=== PATIENT | female | born 1975 | race Caucasian/White ===

== ENCOUNTER 2023-04-06 23:32 | Observation (INO) | payer OTHER, SELFPAY ==
[2023-04-06 23:45] VITALS: BP 154/118; PULSE 89; RESP 18; TEMP 36.8; O2SAT 98; BMI 37.8
[2023-04-06 23:47] VITALS: O2SAT 94
[2023-04-06 23:48] VITALS: BP 154/118; PULSE 75; RESP 11; O2SAT 98
--- NOTE | 2023-04-06 23:48 | ECG_ITS ---
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
--- NOTE | 2023-04-06 23:49 | ED.CHESTPAI1 ---
HPI - Chest Pain General Chief Complaint: Chest Pain Stated Complaint: WEAKNESS/CHEST PAIN Time Seen by Provider: 04/06/23 23:45 History of Present Illness HPI narrative: chest pain began a few days ago while she was resting. No recent injury/trauma or change in activity to account for the pain. She said that the pain has been relatively constant since it started. No recent cough, fever or chills, GI or symptoms. She has never had anything like this before. PMHx notable only for fibromyalgia. She also takes Paxil. Mother has a pacemaker but no family history of AMI under age 50. Patient's PCP is in [place]. No meds taken for the patient since it began. Related Data Home Medications Medication Instructions Recorded Confirmed cholecalciferol (vitamin D3) 50 04/06/23 mcg (2,000 unit) capsule (Vitamin D3) paroxetine HCl 10 mg tablet mg PO 04/06/23 Allergies Allergy/AdvReac Type Severity Reaction Status Date / Time keflex Allergy Mild Uncoded 04/06/23 23:50 Exam Narrative Exam Narrative: Nurses notes and vital signs reviewed and patient is not hypoxic. afebrile General: Well-appearing and in no apparent distress. Skin: Warm, dry, no pallor noted. No rash. Head: Normocephalic, atraumatic. Eye: Pupils are equal, round and EOMI. No scleral icterus. Ears, Nose, Mouth, and Throat: Oral mucosa is moist Cardiovascular: Regular Rate and Rhythm without murmur, gallop or rub. Respiratory: No accessory muscle use or respiratory distress. Lungs are clear to auscultation, no wheezing, rales or rhonchi Chest Wall: no tenderness on palpation at the sternum where the pain is located. No crepitus or subcutaneous emphysema. Back: No midline thoracic or lumbar vertebral tenderness. No CVA tenderness Musculoskeletal: normal ROM, no calf or popliteal tenderness, no lower extremity edema/swelling GI: Abdomen is soft, non-distended. Normal bowel sounds. No tenderness to palpation. No rebound, guarding, or rigidity noted. Neurological: A&O x4. No cranial nerve dysfunction observed. No truncal ataxia. Moves all extremities. Sensation intact. Psychiatric: Cooperative and interactive. Normal mood and affect. Constitutional Vital Signs - 24 hr 04/06/23 23:45 Temperature 98.2 F Pulse Rate [Monitor] 89 Respiratory Rate 18 Blood Pressure [Right Arm] 154/118 H Pulse Oximetry 98 Oxygen Delivery Method Room Air Course Vital Signs Vital signs: Vital Signs Temperature 98.2 F 04/06/23 23:45 Pulse Rate 89 04/06/23 23:45 Respiratory Rate 18 04/06/23 23:45 Blood Pressure 154/118 H 04/06/23 23:45 Pulse Oximetry 98 04/06/23 23:45 Oxygen Delivery Method Room Air 04/06/23 23:45 Temperature 98.2 F 04/06/23 23:45 Pulse Rate 89 04/06/23 23:45 Respiratory Rate 18 04/06/23 23:45 Blood Pressure 154/118 H 04/06/23 23:45 Pulse Oximetry 98 04/06/23 23:45 Oxygen Delivery Method Room Air 04/06/23 23:45 MDM - Chest Pain MDM Narrative Medical decision making narrative: Patient was placed on surveillance monitor and EKG obtained. Blood drawn and sent for evaluation. CXR obtained and was negative. Initial workup was negative but the patient continues to have pain in the mid chest. She was rodered to receive Morphine, along with IV Zforan in caseee she develops nausea from the morphine. She is PERC negative. HEART score is 2 but she is actively having pain, is obese and I do not know if she has received any out-patient screening for DM or cholesterol. I spoke with Dr Tong Huddleston about admitting the patient to our SDU for cycling of cardiac enzymes and further monitoring and he agreed to admit on behalf of Dr Pineda. Patient agreeable to admission. Lab Data Attestation: I reviewed the patient's lab results. Labs: Lab Results 04/06/23 Range/Units 23:55 WBC 8.5 (4.0-11.0) 10^3/uL RBC 4.62 (4.20-5.40) 10^6/uL Hgb 13.9 (12.0-16.0) g/dL Hct 39.5 (36.0-48.0) % MCV 85.5 (81.0-99.0) fL MCH 30.1 (26.7-34.0) pg MCHC 35.2 (29.9-35.2) g/dL RDW 12.0 (11.0-15.0) % Plt Count 328 (150-450) 10^3/uL MPV 10.2 (9.5-13.5) fL Neut % (Auto) 62.4 (43.0-75.0) % Lymph % (Auto) 26.4 (20.5-60.0) % [place] % (Auto) 8.5 (1.7-12.0) % Eos % (Auto) 1.6 (0.9-7.0) % Baso % (Auto) 0.9 (0.2-2.0) % Neut # (Auto) 5.3 (1.4-6.5) 10^3/uL Lymph # (Auto) 2.2 (1.2-3.8) 10^3/uL [place] # (Auto) 0.7 (0.3-0.8) 10^3/uL Eos # (Auto) 0.1 (0.0-0.7) 10^3/uL Baso # (Auto) 0.1 (0.0-0.1) 10^3/uL Abs Immat Gran (auto) 0.02 (0.00-0.03) 10^3/uL Imm/Tot Granulo (auto) 0.2 (0.0-0.5) % Sodium 138 (136-145) mmol/L Potassium 3.8 (3.5-5.1) mmol/L Chloride 106 (98-107) mmol/L Carbon Dioxide 23.7 (21.0-32.0) mmol/L Anion Gap 12.1 BUN 17.0 (7.0-18.0) mg/dL Creatinine 1.08 H (0.55-1.02) mg/dL Est GFR ( Amer) >60 (>=60) Est GFR (Non-Af Amer) 54 L (>=60) BUN/Creatinine Ratio 15.7 Glucose 97 (74-106) mg/dL Calcium 9.4 (8.5-10.1) mg/dL Troponin I High Sens 4.0 (4.0-51.3) pg/mL Imaging Data Chest x-ray: Attestation: I have reviewed the pertinent imaging results. Radiologist's impression: Patient Name: APARNA RODRIGUES MRN: [facility]:[id number] date: 1975 Sex: F Assigned Patient Location: ER Current Patient Location: ER Accession/Order Number: [id number] Exam Date: 04/06/2023 23:59 Report Date: 04/07/2023 00:30 At the request of: LIS LAWRENCE Procedure: XR chest 1V EXAMINATION: XR chest 1V HISTORY: chest pain COMPARISON: No relevant comparison available. FINDINGS: LUNGS: No significant pulmonary parenchymal abnormalities. VASCULATURE: No increased pulmonary vasculature. PLEURA: No pneumothorax, effusion, or pleural thickening. CARDIAC: No cardiomegaly or cardiac silhouette abnormality. MEDIASTINUM: No visible mass or adenopathy. BONES: No fracture or visible bone lesion. OTHER: Negative. IMPRESSION: 1. No appreciable acute cardiopulmonary process. Examination is limited by patient body habitus and AP portable technique. Electronically authenticated by: BENNETT POWERS Date: 04/07/2023 00:30 ECG Data Attestation: ?I have reviewed the pertinent ECG results. Interpretation: EKG interpretation: Emergency Department physician interpretation. Normal sinus rhythm at 77bpm. Normal axis, normal intervals and no ST segment elevation or depression. Heart Score History: Moderatly Suspicious ECG: Normal Age: >45-<65 years Risk Factors: No Risk Factors Troponin: <Normal Limit Total Heart Score Recommendations & Risks:: 2 Discharge Plan Discharge Chief Complaint: Chest Pain Clinical Impression: Chest pain Patient Disposition: Admitted as Observation Time of Disposition Decision: 01:16
[2023-04-07] VITALS (42 sets, daily range): BP systolic 103–193; BP diastolic 0–135; PULSE 56–88; RESP 13–24; TEMP 35.5–36.6; O2SAT 92–100; BMI 42.0
[2023-04-07] MEDS: ASPIRIN 81 MG TAB.CHEW 162 MG PO (00:10)
[2023-04-07] MEDS: NITROGLYCERIN 0.4 MG TAB.SUBL PO (00:15)
[2023-04-07 00:40] LABS: Basophils Absolute Auto 0.1 10^3/uL (0.0-0.1); Basophils Percent Auto 0.9 % (0.2-2.0); Eosinophils Absolute Auto 0.1 10^3/uL (0.0-0.7); Eosinophils Percent Auto 1.6 % (0.9-7.0); Hematocrit 39.5 % (36.0-48.0); Hemoglobin 13.9 g/dL (12.0-16.0); Immature Granulocytes Abs Auto 0.02 10^3/uL (0.00-0.03); Immature Granulocytes Pct Auto 0.2 % (0.0-0.5); Lymphocytes Absolute Auto 2.2 10^3/uL (1.2-3.8); Lymphocytes Percent Auto 26.4 % (20.5-60.0); Mean Corpuscular HGB Conc 35.2 g/dL (29.9-35.2); Mean Corpuscular Hemoglobin 30.1 pg (26.7-34.0); Mean Corpuscular Volume 85.5 fL (81.0-99.0); Mean Platelet Volume 10.2 fL (9.5-13.5); Monocytes Absolute Auto 0.7 10^3/uL (0.3-0.8); Monocytes Percent Auto 8.5 % (1.7-12.0); Neutrophils Absolute Auto 5.3 10^3/uL (1.4-6.5); Neutrophils Percent Auto 62.4 % (43.0-75.0); Platelet Count 328 10^3/uL (150-450); Red Blood Count 4.62 10^6/uL (4.20-5.40); White Blood Count 8.5 10^3/uL (4.0-11.0)
[2023-04-07 01:05] LABS: Anion Gap 12.1; BUN Creatinine Ratio 15.7; Calcium 9.4 mg/dL (8.5-10.1); Carbon Dioxide 23.7 mmol/L (21.0-32.0); Chloride 106 mmol/L (98-107); Estimated GFR (African America >60 (>=60); Estimated GFR (Non-African Ame 54 (>=60); Glucose 97 mg/dL (74-106); Potassium 3.8 mmol/L (3.5-5.1); Sodium 138 mmol/L (136-145)
[2023-04-07] MEDS: MORPHINE SULFATE 4 MG/ML VIAL IV (01:30)
[2023-04-07] MEDS: ONDANSETRON PF 4 MG/2 ML VIAL IV (01:30)
--- NOTE | 2023-04-07 02:18 | ECG_ITS ---
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
--- NOTE | 2023-04-07 02:20 | PC.NURSE ---
patient blood pressure reading high with increased chest pain. took manual bp x2, asked another nurse to check a manual, she also had a difficult time . doppler bp was taken at 188/D. Physician made aware, EKG repeated.
[2023-04-07] MEDS: ENALAPRILAT DIHYDRATE 1.25 MG/ML VIAL IV (02:48)
[2023-04-07] MEDS: LABETALOL HCL 20 MG/4 ML SYRINGE IVP (02:48)
[2023-04-07] MEDS: LORAZEPAM 2 MG/ML 1 ML VIAL 0.5 MG IV (02:52)
--- NOTE | 2023-04-07 04:21 | P.PN_ITS ---
Progress Note: Subjective Subjective Interval history: The patient is a 47yo woman with PMHx of depression, anxiety, fibromyalgia, who presented to the ED with chest pain. She states that it started three days ago and it is substernal, sharp and intermittent. There does not seem to be any trigger for it, since it can occur exertion or rest. She denies any pleuritic pain, cough, SOB, N/V/D/C, abdominal pain, diaphoresis, headaches, lightheadedness, fevers or chills. She states that the pain lasts for 10-30 m inutes at a time. In the ED she was given morphine, nitroglycerin, and aspirin with little improvement. She had some hypertension at one point along with chest pain and she was given some labetalol and lorazepam and she notes that her chest pain was best treated with those medications. She has never had a stress test before, she has no medical history of cardiovascular disease, no family history of cardiovascular disease, and she does not use recreational drugs, smoke or drink. Exam Constitutional Vital Signs - 24 hr 04/06/23 23:45 04/07/23 02:23 04/06/23 23:47 Temperature 98.2 F Pulse Rate Pulse Rate [Monitor] 89 Respiratory Rate 18 Blood Pressure Blood Pressure [Right Arm] 154/118 H 188/0 H Pulse Oximetry 98 94 L Oxygen Delivery Method Room Air 04/06/23 23:48 04/07/23 00:13 04/07/23 00:15 Temperature Pulse Rate 75 82 85 Pulse Rate [Monitor] Respiratory Rate 11 L 16 16 Blood Pressure 154/118 H 172/135 H 175/126 H Blood Pressure [Right Arm] Pulse Oximetry 98 97 96 Oxygen Delivery Method 04/07/23 00:30 04/07/23 00:45 04/07/23 01:00 Temperature Pulse Rate 76 72 87 Pulse Rate [Monitor] Respiratory Rate Blood Pressure 162/96 H 153/86 H 172/101 H Blood Pressure [Right Arm] Pulse Oximetry 99 98 Oxygen Delivery Method 04/07/23 01:05 04/07/23 01:15 04/07/23 01:30 Temperature Pulse Rate 65 69 82 Pulse Rate [Monitor] Respiratory Rate Blood Pressure 166/102 H 164/102 H 171/98 H Blood Pressure [Right Arm] Pulse Oximetry 99 98 98 Oxygen Delivery Method 04/07/23 01:45 04/07/23 02:00 04/07/23 02:01 Temperature Pulse Rate 73 72 71 Pulse Rate [Monitor] Respiratory Rate Blood Pressure 173/111 H 190/116 H 186/113 H Blood Pressure [Right Arm] Pulse Oximetry 98 99 99 Oxygen Delivery Method 04/07/23 02:11 04/07/23 02:48 04/07/23 02:11 Temperature Pulse Rate 69 74 Pulse Rate [Monitor] Respiratory Rate 23 Blood Pressure 193/120 H 157/106 H 193/120 H Blood Pressure [Right Arm] Pulse Oximetry 98 97 Oxygen Delivery Method 04/07/23 02:30 04/07/23 02:54 04/07/23 03:00 Temperature Pulse Rate 70 70 67 Pulse Rate [Monitor] Respiratory Rate 21 21 21 Blood Pressure 157/106 H 149/98 H 143/94 H Blood Pressure [Right Arm] Pulse Oximetry 98 92 L 93 L Oxygen Delivery Method 04/07/23 03:15 04/07/23 04:08 04/07/23 04:09 Temperature Pulse Rate 65 74 Pulse Rate [Monitor] Respiratory Rate 17 Blood Pressure 126/85 H Blood Pressure [Right Arm] Pulse Oximetry 92 L Oxygen Delivery Method Room Air 04/07/23 03:15 04/07/23 03:27 04/07/23 03:30 Temperature 97.2 F L Pulse Rate 68 66 68 Pulse Rate [Monitor] Respiratory Rate 20 17 Blood Pressure 126/85 H Blood Pressure [Right Arm] Pulse Oximetry 98 Oxygen Delivery Method 04/07/23 03:33 04/07/23 03:33 04/07/23 03:33 Temperature Pulse Rate 67 72 72 Pulse Rate [Monitor] Respiratory Rate 16 19 24 Blood Pressure 139/91 H 139/91 H Blood Pressure [Right Arm] Pulse Oximetry 100 93 L 100 Oxygen Delivery Method Documenting provider has reviewed patient's vital signs: yes Common normals: no apparent distress and well nourished General appearance: cooperative, comfortable and well kempt Nutritional appearance: overweight HENMT Common normals: normocephalic Respiratory Common normals: normal respiratory effort, no retractions, no use of accessory muscles and clear to auscultation bilaterally Effort & inspection: able to speak in complete sentences Cardio Common normals: no JVD, regular rate, regular rhythm, S1 normal heart sound, S2 normal heart sound, no gallops, no clicks, no murmurs, no rub and peripheral pulses 2+ throughout GI Common normals: Normal to inspection, nondistended, normoactive bowel sounds present, soft to palpation and non-tender Extremity Common normals: normal to inspection and full ROM Neuro Common normals: oriented x3, CN's II-XII intact bilaterally, moves all extremities, no focal motor deficits and no sensory deficits noted Psych Common normals: mental status grossly normal, thought process normal, cooperative, affect normal, speech normal and activity/motor behavior normal Progress Note: Objective Labs Labs: Short CBC 04/06/23 Range/Units 23:55 WBC 8.5 (4.0-11.0) 10^3/uL Hgb 13.9 (12.0-16.0) g/dL Hct 39.5 (36.0-48.0) % Plt Count 328 (150-450) 10^3/uL BMP 04/06/23 23:55 Sodium 138 Potassium 3.8 Chloride 106 Carbon Dioxide 23.7 BUN 17.0 Creatinine 1.08 H Glucose 97 Calcium 9.4 Progress Note: A&P Assessment and Plan (1) Chest pain: Plan 1. Chest Pain The patient presented with chest pain. Her HEART score is 2, so she is low risk. Her chest pain is most likely related to either musculoskeltal pain or perhaps related to anxiety since it was best treated by lorazepam. - observation status - c/w telemetry - trend troponin x3 - check lipid panel - stress echo ordered - c/w aspirin - morphine and nitro for chest pain 2. Depression Fibromyalgia - c/w paroxetine Telemedicine Attestation Telemedicine Attestation I conducted this encounter from [place] via secure live, [id number] video conference with the patient, located at [facility] with Socorro Mcmahon. Prior to the interview, the risks and benefits of telemedicine were discussed with the patient and verbal consent was obtained.
[2023-04-07 04:50] LABS: Basophils Absolute Auto 0.1 10^3/uL (0.0-0.1); Eosinophils Absolute Auto 0.2 10^3/uL (0.0-0.7); Eosinophils Percent Auto 2.6 % (0.9-7.0); Hematocrit 36.1 % (36.0-48.0); Hemoglobin 12.6 g/dL (12.0-16.0); Immature Granulocytes Abs Auto 0.01 10^3/uL (0.00-0.03); Immature Granulocytes Pct Auto 0.1 % (0.0-0.5); Lymphocytes Absolute Auto 2.3 10^3/uL (1.2-3.8); Lymphocytes Percent Auto 33.1 % (20.5-60.0); Mean Corpuscular HGB Conc 34.9 g/dL (29.9-35.2); Mean Corpuscular Hemoglobin 29.9 pg (26.7-34.0); Mean Corpuscular Volume 85.5 fL (81.0-99.0); Mean Platelet Volume 9.9 fL (9.5-13.5); Monocytes Absolute Auto 0.7 10^3/uL (0.3-0.8); Monocytes Percent Auto 9.9 % (1.7-12.0); Neutrophils Absolute Auto 3.7 10^3/uL (1.4-6.5); Neutrophils Percent Auto 53.3 % (43.0-75.0); Platelet Count 280 10^3/uL (150-450); Red Blood Count 4.22 10^6/uL (4.20-5.40)
[2023-04-07 05:14] LABS: Anion Gap 11.8; BUN Creatinine Ratio 15.5; Calcium 8.8 mg/dL (8.5-10.1); Carbon Dioxide 24.5 mmol/L (21.0-32.0); Chloride 107 mmol/L (98-107); Estimated GFR (African America >60 (>=60); Estimated GFR (Non-African Ame 57 (>=60); Glucose 127 mg/dL (74-106); Magnesium 1.9 mg/dL (1.8-2.4); Potassium 3.3 mmol/L (3.5-5.1); Sodium 140 mmol/L (136-145); Troponin I High Sensitivity 4.3 pg/mL (4.0-51.3)
[2023-04-07 05:31] LABS: Chol HDL Ratio 2.6; Cholesterol 143 mg/dL (<=200); HDL Cholesterol 56 mg/dL (40-60); LDL Cholesterol Calculated 70.4 mg/dL; Triglycerides 83 mg/dL (<=150); VLDL CHOLESTEROL 16.6 mg/dL
[2023-04-07] MEDS: ENOXAPARIN SODIUM 40 MG/0.4 ML SYRINGE SUBQ (06:17)
[2023-04-07 08:29] LABS: Troponin I High Sensitivity 4.7 pg/mL (4.0-51.3)
[2023-04-07] MEDS: ACETAMINOPHEN 325 MG TABLET 650 MG PO (09:11)
[2023-04-07] MEDS: PAROXETINE HCL 20 MG TABLET 10 MG PO (09:12)
[2023-04-07] MEDS: CHOLECALCIFEROL (VITAMIN D3) 25 MCG/1,000 UNITS TABLET 100 MCG PO (09:13)
[2023-04-07] MEDS: POTASSIUM CHLORIDE 10 MEQ ER TABLET 40 MEQ PO (10:59)
--- NOTE | 2023-04-07 11:06 | CT_ITS ---
[address] [address] Patient Name: APARNA RODRIGUES MRN: [id number] date: 1975 Sex: F Assigned Patient Location: ICU Current Patient Location: ICU Accession/Order Number: [id number] Exam Date: 04/07/2023 11:32 Report Date: 04/07/2023 12:06 At the request of: SHAIKH NED Procedure: CT angio chest EXAM: CT angio chest; [id number] REASON FOR EXAM: SOB TECHNIQUE: Helical CT images of the chest were obtained after the administration of IV contrast. Multiplanar reformats and maximum intensity projection images were created at the scanner. Dose reduction technique used: Automated exposure control and/or adjustment of the mA and/or kV according to patient size and/or use of iterative reconstruction technique. COMPARISON: None. FINDINGS: Technical quality: Good. Chest: Support devices: None. Visualized Thyroid: No nodules. Chest wall: Within normal limits. Latonya/mediastinum/esophagus: No mass. Thoracic lymph nodes: No enlarged supraclavicular, mediastinal, hilar or axillary lymph nodes. Heart and vasculature: -No pulmonary artery filling defect to suggest pulmonary embolism. -Right ventricular to left ventricular (RV/LV) ratio (normal is less than 1): -No pericardial effusion or aortic aneurysm. Visualized portions of the upper abdomen: Within normal limits. Musculoskeletal: No acute abnormality or suspicious osseous lesion. Lungs/airways: -No significant nodule or infiltrate. -Small benign calcified granuloma in the right upper lobe. -The central airways are patent. Pleura: No pleural effusion or pneumothorax. IMPRESSION: Negative exam. No pulmonary embolism or any acute cardiopulmonary abnormality demonstrated. Electronically authenticated by: NIELS CONWAY Date: 04/07/2023 12:06
--- NOTE | 2023-04-07 11:07 | CA_ITS ---
Patient: APARNA RODRIGUES Exam Date: 04/08/2023 : 1975 Gender:F Ordering : SHAIKH Ashkan MARINO . Admission #: [id number] Family : Order #: [id number] CLICK HERE TO VIEW EXAM ECHOCARDIOGRAM REPORT PROCEDURE: CA ECHO DOPPLER COMPLETE INDICATIONS: Chest pain COMPARISON: None. DESCRIPTION: COMPLETE ECHOCARDIOGRAM Real-time transthoracic echocardiography with 2D, M-mode, spectral and color flow Doppler performed. QUALITY: Technical quality was good. LEFT VENTRICLE: Normal chamber size. Thickened septal wall. Normal systolic function. LV EF: Normal left ventricular ejection fraction, (>55%). DIASTOLIC: Normal diastolic function. ATRIAL SEPTUM: LEFT ATRIUM: Normal chamber size. RIGHT ATRIUM: Normal chamber size. RIGHT VENTRICLE: Normal chamber size. Normal right ventricular systolic function. TRICUSPID VALVE: Normal mobility and thickness. No stenosis with Doppler studies reveal mildly (35-45) elevated right sided pressures. RVSP 43 mmHg MITRAL VALVE: Normal mobility and thickness. No evidence of mitral valve stenosis. There is no mitral annular calcification. Trivial mitral regurgitation. AORTIC VALVE: Normal trileaflet appearance. No visible sclerosis. Normal leaflet mobility. No evidence of aortic valve stenosis. No aortic regurgitation. AORTIC ROOT: Normal diameter and appearance. PULMONIC VALVE: Normal thickness and mobility. No stenosis. Trivial regurgitation. PERICARDIUM: No evidence of pericardial effusion. IVC: Collapses with inspirations. PLEURA: CONCLUSION: 1. Normal ventricular systolic function. LVEF is 55 to 60%. 2. Normal diastolic function. 3. No significant valvular dysfunction. 4. Mildly elevated right-sided pressures. 5. No pericardial effusion. Adult Echocardiography Procedure Report Left Ventricle LVEDD (3.7 - 5.6 cm): 4.30 cm LVESD (2.2 - 4.0 cm): 2.93 cm LVIVS thickness (0.6 - 1.2 cm): 1.11 cm LVPW thickness (0.5 - 1.0 cm): 0.83 cm e': 0.10 m/s E - e': 8.98 LVOT Max Gradient: 2.71 mm[Hg] LVOT Area (cm2): 0.82 m/s Peak Velocity (LVOT): 0.82 m/s LVOT Diameter 2.29 cm Left Atrium LA Volume Index (2D A2C): 21.82 ml/m2 Left Atrium Systolic Dimension: 3.26 cm Mitral Valve MV E to A Ratio: 1.16 Mitral Valve A-Wave Peak Velocity: 0.76 m/s Mitral Valve E-Wave Peak Velocity: 0.89 m/s Right Ventricle Aorta AO Root Diam: 3.20 cm Ascending Ao Diam: 2.93 cm Aortic Valve AoV Area (Peak Дмитрий): 3.11 cm2, 3.11 cm2 Peak Velocity(Antegrade Flow): 1.09 m/s Peak Gradient(Antegrade Flow): 4.75 mm[Hg] Mean Velocity(Antegrade Flow): 0.73 m/s Mean Gradient(Antegrade Flow): 2.45 mm[Hg] Velocity Time Integral: 23.32 cm Tricuspid Valve Peak Velocity (Regurgitant Flow): 3.18 m/s Pulmonic Valve Mean Gradient: 1.96 mm[Hg] Mean Velocity: 0.65 m/s Peak Velocity: 0.94 m/s, 0.97 m/s Peak Gradient: 3.73 mm[Hg], 3.50 mm[Hg] Right Atrium Right Atrium Systolic Pressure: 30.51 ml, 30.51 ml Dictated by: Iraj Gaming M.D. on 04/08/2023 at 18:01 Approved by: Iraj Gaming M.D. on 04/08/2023 at 18:03
[2023-04-07] MEDS: MORPHINE SULFATE 2 MG/ML SYRINGE IV ×3 (11:14→20:30)
--- NOTE | 2023-04-07 12:11 | P.HP_ITS ---
H&P: HPI History of Present Illness Chief complaint: Chest Pain Narrative: 47 y o female with no sig PMhx except for depresion and fibromyalgia presented last evening with midsternal sharp chest pain. Patient was at work when her pain started. She reports she has been experiencing mid sternal chest pain, sharp in nature, lasts about 30 mins, no aggravating or relieving factors, and no relationship to food or exertion. No associated symptoms too and denies nausea, palpitations or SOB. Pain is not pleuritic and does not change with deep inspiration. Her CP has been going on for about a month or so, but getting more frequent and severe progressively. She denies prior hx of CAD/CHF and never been w/u for it. She was noted to have very high BP on presentation and required IV treatment for it but since then, her BP has been at goal and she herself told me that she has never been diagnosed with HTN. Patient reports she walks with her grand kids over the weekends and also swims and has not experienced any symptoms concerning for CAD/CHF when she does that. 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 Denies smoking and sig FHx of CAD in family. No recent travel or prolonged immobilization. She is still experiencing chest discomfort in mid sternal region. Pain has eased off since admission but it is persistent and still present. Review of Systems ROS Status of ROS 10 or more systems reviewed and unremarkable except as noted in history and below [facility] Medical History (Updated 04/07/23 @ 12:31 by Shaikh Edwin MD) Surgical History (Updated 04/07/23 @ 12:18 by Shaikh Edwin MD) Family History (Updated 04/07/23 @ 12:17 by Shaikh Edwin MD) Mother Family history of hypertension Atrial fibrillation Social History (Updated 04/07/23 @ 12:17 by Shaikh Edwin MD) Within the past year, how often did you have a drink containing alcohol: never Score interpretation: A score less than 3 is consistent with normal alcohol consumption. Smoking status: Never smoker Non-prescribed substance use: denies use Meds Home Medications and Allergies Home Medications Medication Instructions Recorded Confirmed Type cholecalciferol (vitamin D3) 50 4,000 unit PO DAILY 04/06/23 04/07/23 History mcg (2,000 unit) capsule (Vitamin D3) paroxetine HCl 10 mg tablet 10 mg PO DAILY 04/06/23 04/07/23 History Allergies Allergy/AdvReac Type Severity Reaction Status Date / Time keflex Allergy Mild Uncoded 04/06/23 23:50 Exam Constitutional Vital Signs - 24 hr 04/06/23 23:45 04/07/23 02:23 04/06/23 23:47 Temperature 98.2 F Pulse Rate Pulse Rate [Monitor] 89 Respiratory Rate 18 Blood Pressure Blood Pressure [Right Arm] 154/118 H 188/0 H Pulse Oximetry 98 94 L Oxygen Delivery Method Room Air 04/06/23 23:48 04/07/23 00:13 04/07/23 00:15 Temperature Pulse Rate 75 82 85 Pulse Rate [Monitor] Respiratory Rate 11 L 16 16 Blood Pressure 154/118 H 172/135 H 175/126 H Blood Pressure [Right Arm] Pulse Oximetry 98 97 96 Oxygen Delivery Method 04/07/23 00:30 04/07/23 00:45 04/07/23 01:00 Temperature Pulse Rate 76 72 87 Pulse Rate [Monitor] Respiratory Rate Blood Pressure 162/96 H 153/86 H 172/101 H Blood Pressure [Right Arm] Pulse Oximetry 99 98 Oxygen Delivery Method 04/07/23 01:05 04/07/23 01:15 04/07/23 01:30 Temperature Pulse Rate 65 69 82 Pulse Rate [Monitor] Respiratory Rate Blood Pressure 166/102 H 164/102 H 171/98 H Blood Pressure [Right Arm] Pulse Oximetry 99 98 98 Oxygen Delivery Method 04/07/23 01:45 04/07/23 02:00 04/07/23 02:01 Temperature Pulse Rate 73 72 71 Pulse Rate [Monitor] Respiratory Rate Blood Pressure 173/111 H 190/116 H 186/113 H Blood Pressure [Right Arm] Pulse Oximetry 98 99 99 Oxygen Delivery Method 04/07/23 02:11 04/07/23 02:48 04/07/23 02:11 Temperature Pulse Rate 69 74 Pulse Rate [Monitor] Respiratory Rate 23 Blood Pressure 193/120 H 157/106 H 193/120 H Blood Pressure [Right Arm] Pulse Oximetry 98 97 Oxygen Delivery Method 04/07/23 02:30 04/07/23 02:54 04/07/23 03:00 Temperature Pulse Rate 70 70 67 Pulse Rate [Monitor] Respiratory Rate 21 21 21 Blood Pressure 157/106 H 149/98 H 143/94 H Blood Pressure [Right Arm] Pulse Oximetry 98 92 L 93 L Oxygen Delivery Method 04/07/23 03:15 04/07/23 04:08 04/07/23 04:09 Temperature Pulse Rate 65 74 Pulse Rate [Monitor] Respiratory Rate 17 Blood Pressure 126/85 H Blood Pressure [Right Arm] Pulse Oximetry 92 L Oxygen Delivery Method Room Air 04/07/23 03:15 04/07/23 03:27 04/07/23 03:30 Temperature 97.2 F L Pulse Rate 68 66 68 Pulse Rate [Monitor] Respiratory Rate 20 17 Blood Pressure 126/85 H Blood Pressure [Right Arm] Pulse Oximetry 98 Oxygen Delivery Method 04/07/23 03:33 04/07/23 03:33 04/07/23 03:33 Temperature Pulse Rate 67 72 72 Pulse Rate [Monitor] Respiratory Rate 16 19 24 Blood Pressure 139/91 H 139/91 H Blood Pressure [Right Arm] Pulse Oximetry 100 93 L 100 Oxygen Delivery Method 04/07/23 05:13 04/07/23 07:21 04/07/23 07:23 Temperature 97.2 F L Pulse Rate 77 66 65 Pulse Rate [Monitor] 65 Respiratory Rate 24 Blood Pressure Blood Pressure [Right Arm] Pulse Oximetry 100 Oxygen Delivery Method Room Air 04/07/23 09:29 04/07/23 08:30 04/07/23 10:06 Temperature Pulse Rate 62 63 Pulse Rate [Monitor] 63 Respiratory Rate 20 Blood Pressure Blood Pressure [Right Arm] Pulse Oximetry Oxygen Delivery Method 04/07/23 03:33 04/07/23 08:40 04/07/23 08:40 Temperature 97.9 F Pulse Rate 86 71 61 Pulse Rate [Monitor] Respiratory Rate 16 17 17 Blood Pressure 139/91 H 103/58 L 103/58 L Blood Pressure [Right Arm] Pulse Oximetry 99 Oxygen Delivery Method 04/07/23 11:59 04/07/23 12:02 04/07/23 08:40 Temperature Pulse Rate 61 70 Pulse Rate [Monitor] 63 Respiratory Rate 20 13 Blood Pressure 103/58 L Blood Pressure [Right Arm] Pulse Oximetry Oxygen Delivery Method 04/07/23 11:06 Temperature 97.9 F Pulse Rate 57 L Pulse Rate [Monitor] Respiratory Rate 18 Blood Pressure 161/94 H Blood Pressure [Right Arm] Pulse Oximetry 99 Oxygen Delivery Method Documenting provider has reviewed patient's vital signs: yes Common normals: no apparent distress General appearance: cooperative and comfortable Nutritional appearance: obese HENMT Common normals: normocephalic and head/scalp atraumatic Eye Common normals: conjunctivae normal and no scleral icterus Chest Common normals: inspection of chest normal and palpation of chest normal Respiratory Common normals: normal respiratory effort, no retractions, no use of accessory muscles and clear to auscultation bilaterally Cardio Common normals: regular rate, regular rhythm, S1 normal heart sound, S2 normal heart sound and no murmurs GI Common normals: Normal to inspection, nondistended, normoactive bowel sounds present, soft to palpation, non-tender and no hepatosplenomegaly Extremity Common normals: normal to inspection and full ROM Neuro Common normals: oriented x3, moves all extremities, no focal motor deficits and no sensory deficits noted Psych Common normals: mental status grossly normal, thought process normal, cooperative, affect normal, speech normal, denies hallucinations, denies homicidal ideation and denies suicidal ideation Appearance: well kempt Attitude: calm Activity/motor behavior: appropriate eye contact Speech: normal speech Mood and affect: euthymic mood Thought process: normal thought process Thought content: normal thought content Attention/concentration: attention grossly intact Memory/cognition: memory grossly intact Insight: insight good Judgement: judgment good Results Labs Labs: Short CBC 04/06/23 04/07/23 Range/Units 23:55 04:40 WBC 8.5 7.0 (4.0-11.0) 10^3/uL Hgb 13.9 12.6 (12.0-16.0) g/dL Hct 39.5 36.1 (36.0-48.0) % Plt Count 328 280 (150-450) 10^3/uL BMP 04/06/23 04/07/23 23:55 04:15 Sodium 138 140 Potassium 3.8 3.3 L Chloride 106 107 Carbon Dioxide 23.7 24.5 BUN 17.0 16.0 Creatinine 1.08 H 1.03 H Glucose 97 127 H Calcium 9.4 8.8 Assessment and Plan Assessment and Plan (1) Chest pain: Assessment and Plan: Mid sternal, intermittent, worsening and on going for 1 month or so. Not pleuritic, no relationship to food or exertion. Trop x 3 negative EKG shows NSR, low voltage but otherwise normal. Repeat EKG. Will order CTA chest to r/o PE. If there is no VTE, then she would need inpatient stress test to r/o underlying CAD as she continues to have chest pain even today. Will also order 2 D ECHO to assess cardiac structure. Risk factors include Obesity, age and possibly HTN Although her symptoms are not c/w GI etiology but will treat her empirically regardless to see if her symptoms improve with Protonix and Carafate. Ordering Nuclear stress test as patient unable to exercise on treadmill due to her body habitus, knee pain, fibromyalgia. Qualifiers: Chest pain type: unspecified Qualified Code(s): R07.9 - Chest pain, unspecified (2) Depression: Assessment and Plan: On Paroxetine. Outpatient f/u. I suspect there is room for improvement especially from anxiety pov and she might benefit from increased dose of paxil as oupatient. Qualifiers: Depression Type: major depressive disorder Major depression recurrence: unspecified whether recurrent Active/Remission status: in partial remission Qualified Code(s): F32.4 - Major depressive disorder, single episode, in partial remission (3) Fibromyalgia: Assessment and Plan: Not on any specific medications for it other than Paxil for underlying depression. Will defer to outpatient.
[2023-04-07] MEDS: PANTOPRAZOLE SODIUM 40 MG VIAL IV (12:27)
[2023-04-07] MEDS: SUCRALFATE 1 GM TABLET PO ×3 (12:27→21:00)
--- NOTE | 2023-04-07 12:27 | ECG_ITS ---
The [facility] Test Date: 2023-04-07 Pat Name: APARNA RODRIGUES Department: Room: 2711 Gender: Female Greige Mender: : 1975 Requested By: Order Number: [id number] Reading MD: STANISLAV CIFUENTES Measurements Intervals [place] Rate: 56 P: 39 IA: 176 QRS: 51 QRSD: 72 T: 61 QT: 406 QTc: 397 Interpretive Statements [address] In[address] ST elevation, slightly more pronounced when compared to previous tracing, myocardial ischemia can't be excluded 9110 normal ECG Electronically Signed On 04-07-2023 19:50:02 EDT by STANISLAV CIFUENTES
[2023-04-07] MEDS: LORAZEPAM 0.5 MG TABLET PO (15:47)
[2023-04-08] VITALS (35 sets, daily range): BP systolic 146–164; BP diastolic 94–103; PULSE 49–100; RESP 16–28; TEMP 37.1; O2SAT 97–99
[2023-04-08] MEDS: POTASSIUM CHLORIDE 10 MEQ ER TABLET 40 MEQ PO (08:20)
[2023-04-08] MEDS: ENOXAPARIN SODIUM 40 MG/0.4 ML SYRINGE SUBQ (08:21)
[2023-04-08] MEDS: PAROXETINE HCL 20 MG TABLET 10 MG PO (08:21)
[2023-04-08] MEDS: ASPIRIN 81 MG TAB.CHEW PO (08:21)
[2023-04-08] MEDS: SUCRALFATE 1 GM TABLET PO ×3 (08:21→16:44)
[2023-04-08] MEDS: CHOLECALCIFEROL (VITAMIN D3) 25 MCG/1,000 UNITS TABLET 100 MCG PO (08:24)
[2023-04-08] MEDS: LORAZEPAM 0.5 MG TABLET PO (08:32)
--- NOTE | 2023-04-08 08:44 | PC.NURSE ---
During assessment pt was having slight chest pressure, after ambulating to the bathroom. States it was presssure and slight tingles to her left upper arm/shoulder. Requested an ativan, stated yesterday it helped relieve pressure/pain to chest. She feels it may be related to stress and anxiety rather than cardiac.
--- NOTE | 2023-04-08 10:24 | NM_ITS ---
Patient: APARNA RODRIGUES Exam Date: 04/08/2023 : 1975 Gender:F Ordering : PoojaJass MARINO . Admission #: [id number] Family : DARLINE FAULKNER Order #: [id number] CLICK HERE TO VIEW EXAM RADIOLOGY REPORT PROCEDURE: NM JAYDEN PERF SPECT REST STR COMPARISON: None. INDICATIONS: chest pain TECHNIQUE: Exam Description: Stress/Rest one day protocol gated SPECT Rest Imagin.4 mCi Tc-99m Cardiolite IV on 04/08/2023 Stress Imaging 30.2 mCi Tc-99m Cardiolite IV on 04/08/2023 Exercise Protocol: 0.4 mg Lexiscan given IV Heart Rate (bpm): Rest: 63 Max: 106 PMHR: 61 Blood Pressure: Rest: 148/102 Max: 148/102 Symptoms: Rest and peak stress ECG findings were normal and the exercise portion of the study was normal per attending physician Dr. Levin . For more details please see separate cardiac stress test report. FINDINGS: QUALITY OF STUDY: Good. PERFUSION DEFECT: LOCATION: [place]. SIZE: Small (1-2 segments). SEVERITY: Moderate. TYPE: Persistent. WALL MOTION: Normal. LV SIZE: Normal. 85 mL. TID / TCD: None; 0.9 LVEF: Normal. Calculated EF 77%. SUMMARY: Myocardial perfusion imaging study has ABNORMAL findings. CONCLUSION: 1. Small fixed defect in the apex 2. No reversible ischemia 3. Normal exercise test Dictated by: William Cummings MD on 04/08/2023 at 15:33 Approved by: William Cummings MD on 04/08/2023 at 15:49
[2023-04-08] MEDS: REGADENOSON 0.4 MG/5 ML SYRINGE IV (12:12)
--- NOTE | 2023-04-08 14:04 | PM.STRESS ---
Stress Test Stress Test Allergies Allergy/AdvReac Type Severity Reaction Status Date / Time keflex Allergy Mild Uncoded 04/06/23 23:50 Requesting physician: Shaikh Edwin Procedure: Lexiscan Cardiolite stress test General Information: Reason for Stress Test: Chest pain Cardiac History and Risk Factors: Denies personal history. Mother had PTCA, pacemaker. Resting 12 - Lead Electrocardiogram: Normal sinus rhythm at rate 61, normal axis, ST-segments, and T-waves. Stress Test: Protocol: Lexiscan protocol was initiated with injection of 0.4mg Lexiscan IV push followed by Cardiolite. Blood pressure: Initial & maximum: 148/102 Rate & rhythm: Patient remained in sinus rhythm during the exercise and recovery portions of the study.? The maximum heart rate was 106, which was 61% of the maximum predicted heart rate 172. ST-segments & T-waves: There were no T-wave changes and no ST-segment changes when compared to the baseline EKG. Patient response/symptoms: There were no symptoms similar to the chief complaint. Interpretation: Normal Lexiscan stress test. Cardiolite interpretation will be reported separately.
--- NOTE | 2023-04-08 14:36 | CM.NOTE ---
Rounds made with Dr. Pineda, awaiting results of stress test. Pt may discharge today. No discharge needs identified.
--- NOTE | 2023-04-08 15:56 | PM.DS1 ---
DS: Providers Provider Date of admission: 04/07/23 01:25 Primary care physician: Non-Staff Physician, Attending physician on discharge: Shaikh Edwin Discharging clinician: Shaikh Edwin DS: Diagnosis Discharge Diagnosis (1) Chest pain: Assessment and plan: Negative Troponin. Normal EKG. No reversible/fixed defect on nuclear stress test. Likely non cardiac. Suspect musculoskeletal vs anxiety related. Outpatient f/u Qualifiers: Chest pain type: unspecified Qualified Code(s): R07.9 - Chest pain, unspecified (2) Depression: Assessment and plan: C/w Paxil Qualifiers: Depression Type: major depressive disorder Major depression recurrence: unspecified whether recurrent Active/Remission status: in partial remission Qualified Code(s): F32.4 - Major depressive disorder, single episode, in partial remission (3) Fibromyalgia: Assessment and plan: Not on any medications DS: Summary Hospital Course Hospital Course: 47 y o f admitted for chest pain to r/o ACS. Normal EKG, negative troponin and normal nuclear stress test. No sig event on tele. No PE/PNA on CTA Still reporting mild discomfort in mid sternum. Suspect this is likely MSK related pain BP noted to be consistently elevated and above goal. Will d/c on oral Norvasc. Patient to f/u with PCP to manage his meds as outpatient. Outpatient f/u with PCP in one week Status at Discharge Functional status at discharge: independent ambulation Overall status at discharge: patient is back to baseline Time Spent with Patient Time attestation: Total time spent providing and/or coordinating discharge services: Time spent: greater than 30 minutes Exam Constitutional Vital Signs - 24 hr 04/07/23 16:49 04/07/23 18:03 04/07/23 16:00 Temperature Pulse Rate 75 67 Pulse Rate [Monitor] 63 Respiratory Rate 16 Blood Pressure Pulse Oximetry 04/07/23 20:18 04/07/23 21:53 04/07/23 23:13 Temperature 96 F L Pulse Rate 65 56 L Pulse Rate [Monitor] Respiratory Rate 20 20 Blood Pressure 156/96 H Pulse Oximetry 98 04/07/23 20:18 04/07/23 23:25 04/08/23 00:09 Temperature 96.2 F L Pulse Rate 68 58 L 56 L Pulse Rate [Monitor] Respiratory Rate 21 18 Blood Pressure 156/96 H 159/97 H Pulse Oximetry 100 98 04/08/23 03:09 04/08/23 03:09 04/08/23 03:45 Temperature Pulse Rate 53 L 58 L Pulse Rate [Monitor] Respiratory Rate 18 Blood Pressure Pulse Oximetry 04/08/23 04:20 04/08/23 08:37 04/08/23 10:36 Temperature Pulse Rate 49 L 64 Pulse Rate [Monitor] 57 L Respiratory Rate 18 Blood Pressure Pulse Oximetry 04/08/23 12:37 04/07/23 23:25 04/08/23 08:18 Temperature Pulse Rate 61 Pulse Rate [Monitor] Respiratory Rate 18 16 Blood Pressure 159/97 H 164/94 H Pulse Oximetry 97 98 04/08/23 11:14 04/08/23 11:20 04/08/23 11:30 Temperature Pulse Rate 59 L 57 L Pulse Rate [Monitor] Respiratory Rate 28 H 20 Blood Pressure Pulse Oximetry 04/08/23 11:40 04/08/23 11:46 04/08/23 12:34 Temperature Pulse Rate 56 L 71 Pulse Rate [Monitor] Respiratory Rate Blood Pressure 146/103 H Pulse Oximetry 99 04/08/23 14:40 04/08/23 14:51 Temperature Pulse Rate 71 66 Pulse Rate [Monitor] Respiratory Rate Blood Pressure Pulse Oximetry Documenting provider has reviewed patient's vital signs: yes Common normals: no apparent distress General appearance: cooperative and comfortable Nutritional appearance: obese HENMT Common normals: normocephalic and head/scalp atraumatic Eye Common normals: conjunctivae normal and no scleral icterus Chest Common normals: inspection of chest normal and palpation of chest normal Respiratory Common normals: normal respiratory effort, no retractions, no use of accessory muscles and clear to auscultation bilaterally Cardio Common normals: regular rate, regular rhythm, S1 normal heart sound, S2 normal heart sound and no murmurs GI Common normals: Normal to inspection, nondistended, normoactive bowel sounds present, soft to palpation, non-tender and no hepatosplenomegaly Extremity Common normals: normal to inspection and full ROM Neuro Common normals: oriented x3, moves all extremities, no focal motor deficits and no sensory deficits noted Psych Common normals: mental status grossly normal, thought process normal, cooperative, affect normal, speech normal, denies hallucinations, denies homicidal ideation and denies suicidal ideation Appearance: well kempt Attitude: calm Activity/motor behavior: appropriate eye contact Speech: normal speech Mood and affect: euthymic mood Thought process: normal thought process Thought content: normal thought content Attention/concentration: attention grossly intact Memory/cognition: memory grossly intact Insight: insight good Judgement: judgment good Discharge Plan Discharge Disposition: Home, Self-Care Discharge Medications: New amlodipine 10 mg tablet 10 mg PO DAILY Qty: 30 0RF Continued paroxetine HCl 10 mg tablet 10 mg PO DAILY cholecalciferol (vitamin D3) [Vitamin D3] 50 mcg (2,000 unit) capsule 4,000 unit PO DAILY Activity: resume usual activities as tolerated Diet: advance to your usual diet Forms: Portal Instructions Follow Up Appointments: PCP in one week
[2023-04-08] MEDS: AMLODIPINE BESYLATE 5 MG TABLET 10 MG PO (16:44)
--- NOTE | 2023-04-09 13:47 | CM.DCFOLLOWU ---
Person spoke with: patient How are you feeling? a little weak How is your pain? pain varying Did you understand your discharge instructions? yes Do you have any questions about your discharge instructions? no Were you given any prescriptions at discharge? yes Were you able to get your prescriptions filled? yes Do you understand how to take your medications as ordered? yes Do you have any questions about your follow up appointment and do you plan to keep your follow up appointment? no questions, yes follow up Saturday04/15/23 Is there anything else that you would like to discuss? no Questions/Comments/Concerns/Other:
== END 2023-04-08 17:40 | disposition home or self-care (01) ==
LOC: ER 04-07 01:26 → ICU 04-07 03:27
PROVIDERS: Internal Medicine; Admitting Provider Internal Medicine; Emergency Provider Emergency Medicine; Visit Provider Internal Medicine
DX: R07.9 Chest pain, unspecified (principal); F32.A Depression, unspecified; Z79.899 Other long term (current) drug therapy; M79.7 Fibromyalgia
CPT/HCPCS: 36415; 71045; 71275; 78452; 80048; 80061; 83735; 84484; 85025; 93005; 93017; 93306; 96372; 96374; 96375; 96376; 99285; A9500; G0378; J2785; Q3014; Q9967

== ENCOUNTER 2024-03-24 17:31 | Emergency (ER) | payer OTHER, SELFPAY ==
[2024-03-24 17:36] VITALS: BP 157/91; PULSE 71; TEMP 36.9; O2SAT 100; BMI 39.0
--- NOTE | 2024-03-24 17:45 | XR_ITS ---
The [address] [address] Patient Name: APARNA SÁNCHEZ MRN: [id number] date: 1975 Sex: F Assigned Patient Location: ED.MAIN Current Patient Location: ER Accession/Order Number: [id number] Exam Date: 03/24/2024 18:00 Report Date: 03/24/2024 18:47 At the request of: JEB BARAHONA Procedure: XR wrist LT min 3V Exam: Radiographs: XR wrist LT min 3V Reason for exam: fall Comparison: None XR/XR wrist LT min 3V IMPRESSION: Mild left wrist degenerative changes. Left wrist radiographs are otherwise unremarkable. Electronically authenticated by: ALMAZ DEAN Date: 03/24/2024 18:47
--- NOTE | 2024-03-24 19:08 | ED_ITS ---
Documented by User: ELTON Almanzar 03/24/24 19:29 HPI HPI - Extremity Injury (Upper) General Chief Complaint: Fall Stated Complaint: FALL Time Seen by Provider: 03/24/24 18:06 Source: patient Mode of arrival: walk-in Limitations: no limitations History of Present Illness HPI narrative: 48-year-old female presents to the emergency department with complaint of injury to her left hand. Injury occurred this past Saturday. States she tripped and fell, landing on outstretched hand. Complains of tenderness, bruising. Patient is left-handed. Denies any other injury, motor or sensory changes, paresthesias. Quality:?Blunt trauma Severity:?Mild Timing:?As above, constant Context: Normal setting and activity? Modifying factors:?Pain worse with palpation Associated symptoms: Bruising, swelling Related Data Home Medications ?Medication ?Instructions ?Recorded ?Confirmed cholecalciferol (vitamin D3) 50 4,000 unit PO DAILY 04/06/23 03/24/24 mcg (2,000 unit) capsule (Vitamin D3) paroxetine HCl 10 mg tablet 10 mg PO DAILY 04/06/23 04/07/23 amlodipine 10 mg-benazepril 20 mg 1 cap PO DAILY 03/24/24 03/24/24 capsule paroxetine HCl 20 mg tablet 30 mg PO DAILY 03/24/24 03/24/24 Previous Rx's ?Medication ?Instructions ?Recorded amlodipine 10 mg tablet 10 mg PO DAILY #30 tabs 04/08/23 Allergies Allergy/AdvReac Type Severity Reaction Status Date / Time cephalexin [From Keflex] Allergy Mild Verified 03/24/24 17:46 fexofenadine [From Elissa-D] Allergy Rash Verified 03/24/24 17:42 latex Allergy Rash Verified 03/24/24 17:42 pseudoephedrine Allergy Rash Verified 03/24/24 17:42 [From Elissa-D] Sulfa (Sulfonamide Allergy Rash Verified 03/24/24 17:42 Antibiotics) Opioid HPI Opioid Management Most Recent Pain and Opioid Data: Last Pain Scale 2 04/08/23 16:21 Review of Systems ROS Narrative CONST: Denies activity change, weakness MS: +arthralgias, swelling.? SKIN: + bruising. Denies wound NEURO: Denies numbness, paresthesias, weakness [facility] Medical History (Updated 03/24/24 @ 19:04 by ELTON Almanzar) Depression ?F32.A - Depression, unspecified (ICD-10) Anxiety ?F41.9 - Anxiety disorder, unspecified (ICD-10) Arthritis ?M19.90 - Unspecified osteoarthritis, unspecified site (ICD-10) Fibromyalgia ?M79.7 - Fibromyalgia (ICD-10) Chest pain ?R07.9 - Chest pain, unspecified (ICD-10) Surgical History (Updated 04/07/23 @ 12:18 by Shaikh Edwin MD) History of appendectomy ?Z90.49 - Acquired absence of other specified parts of digestive tract (ICD- 10) H/O: ?Z98.891 - History of uterine scar from previous surgery (ICD-10) Family History (Updated 04/07/23 @ 12:17 by Shaikh Edwin MD) Mother Family history of hypertension Atrial fibrillation Social History (Updated 04/07/23 @ 12:17 by Shaikh Edwin MD) Within the past year, how often did you have a drink containing alcohol: never Score interpretation: A score less than 3 is consistent with normal alcohol consumption. Smoking status: Never smoker Non-prescribed substance use: denies use Exam Narrative Exam Narrative: Vital signs noted Nurses notes reviewed CONST: Nontoxic, well appearing, well nourished, in no distress.? HENT: normocephalic, atraumatic. CV: 2+ palpable left radial pulse MS: Left hand and wrist: +tenderness, bruising, swelling to the thenar eminence.? No tenderness to the distal radius and ulna, fingers, metacarpals.? No crepitus, deformity, instability, warmth.? ROM full with all digits, wrist with flexion and extension.? Strength 5/5 NEURO: Sensory intact throughout and distal to the injury SKIN: + Bruising. Intact, warm, dry.? No abrasion, laceration PSYCHIATRIC: normal mood, affect Constitutional Vital Signs, click to edit/add: Last Vital Signs Temp 98.4 F 03/24/24 17:36 Pulse 67 03/24/24 19:10 Resp 16 03/24/24 19:10 BP 142/66 H 03/24/24 19:10 Pulse Ox 97 03/24/24 19:10 O2 Del Method Room Air 03/24/24 19:10 Course Vital Signs Vital signs: Vital Signs Temperature 98.4 F 03/24/24 17:36 Pulse Rate 71 03/24/24 17:36 Respiratory Rate 16 03/24/24 17:36 Blood Pressure 157/91 H 03/24/24 17:36 Pulse Oximetry 100 03/24/24 17:36 Oxygen Delivery Method Room Air 03/24/24 17:36 Temperature 98.4 F 03/24/24 17:36 Pulse Rate 67 03/24/24 19:10 Respiratory Rate 16 03/24/24 19:10 Blood Pressure 142/66 H 03/24/24 19:10 Pulse Oximetry 97 03/24/24 19:10 Oxygen Delivery Method Room Air 03/24/24 19:10 MDM - Extremity Injury (Upper) MDM Narrative Medical decision making narrative: This is a pleasant 48-year-old female presents to the emergency department for evaluation of left hand injury. On arrival, afebrile, vital signs are stable. On exam, nontoxic, well-appearing patient in no distress. She has tenderness, bruising, swelling over the left thenar eminence. No tenderness to the remainder of the hand, distal radius and ulna, anatomical snuffbox. X-ray imaging, per radiologist reveals no acute findings Favor left hand contusion Fracture, dislocation less likely based on imaging Patient placed in Velcro wrist splint. Advised rest, ice, elevation Disposition ? The patient was discharged. Plan: Patient will be discharged to home. Condition at time of disposition: stable ? Advised to follow up with primary provider. Advised to return for any worsening and/or development of new, concerning signs or symptoms PLEASE NOTE: Portions of the medical record may have been produced using electronic child and family counselor and may contain errors with respect to translation of words which may not have been identified prior to finalization of the chart. Medical Records Attestation: I reviewed the patient's medical records. Imaging Data Left hand x-ray: Radiologist's impression: ITS Impressions Wrist X-Ray 03/24/24 17:45 IMPRESSION: Mild left wrist degenerative changes. Left wrist radiographs are otherwise unremarkable. Electronically authenticated by: ALMAZ DEAN Date: 03/24/2024 18:47 Discharge Plan Discharge Stand Alone Forms: Portal Instructions Chief Complaint: Fall Clinical Impression: Hand pain, left Contusion of hand Qualifiers: Encounter type: initial encounter Laterality: left Qualified Code(s): S60.222A - Contusion of left hand, initial encounter Patient Disposition: Home, Self-Care Time of Disposition Decision: 19:04 Condition: Good Mode of Transportation: Private Vehicle Prescriptions / Home Meds: No Action amlodipine-benazepril 10-20 mg capsule 1 cap PO DAILY paroxetine HCl 20 mg tablet 30 mg PO DAILY paroxetine HCl 10 mg tablet 10 mg PO DAILY cholecalciferol (vitamin D3) [Vitamin D3] 50 mcg (2,000 unit) capsule 4,000 unit PO DAILY amlodipine 10 mg tablet 10 mg PO DAILY Qty: 30 0RF Print Language: British Instructions: Contusion in Adults (ED), P.R.I.C.E. Treatment (ED) Referrals: Schuyler Javier MD [Physician] - 1 week Discharge Date/Time: 03/24/24 19:10 Procedures ED Ortho Splinting/Casting Orthopedic Splinting/Casting Injury #1: Additional comments: ED PROCEDURE NOTE: SPLINTING/STRAPPING The ED nurse applied a Velcro wrist splint/immobilizer to the left wrist and hand of the patient. The area was examined post application and there was good alignment and good neurovascular function of the splinted/immobilized body part following the procedure. The patient tolerated the procedure well. Electronically verified by Brian Robbins PA-C Documented by User: Gallo Farris MD 03/24/24 20:37 HPI HPI - Extremity Injury (Upper) General Chief Complaint: Fall Stated Complaint: FALL Time Seen by Provider: 03/24/24 18:06 Related Data Home Medications ?Medication ?Instructions ?Recorded ?Confirmed cholecalciferol (vitamin D3) 50 4,000 unit PO DAILY 04/06/23 03/24/24 mcg (2,000 unit) capsule (Vitamin D3) paroxetine HCl 10 mg tablet 10 mg PO DAILY 04/06/23 04/07/23 amlodipine 10 mg-benazepril 20 mg 1 cap PO DAILY 03/24/24 03/24/24 capsule paroxetine HCl 20 mg tablet 30 mg PO DAILY 03/24/24 03/24/24 Previous Rx's ?Medication ?Instructions ?Recorded amlodipine 10 mg tablet 10 mg PO DAILY #30 tabs 04/08/23 Allergies Allergy/AdvReac Type Severity Reaction Status Date / Time cephalexin [From Keflex] Allergy Mild Verified 03/24/24 17:46 fexofenadine [From Elissa-D] Allergy Rash Verified 03/24/24 17:42 latex Allergy Rash Verified 03/24/24 17:42 pseudoephedrine Allergy Rash Verified 03/24/24 17:42 [From Elissa-D] Sulfa (Sulfonamide Allergy Rash Verified 03/24/24 17:42 Antibiotics) Opioid HPI Opioid Management Most Recent Pain and Opioid Data: Last Pain Scale 2 04/08/23 16:21 PFSH PFSH Medical History (Updated 03/24/24 @ 19:04 by ELTON Almanzar) Depression ?F32.A - Depression, unspecified (ICD-10) Anxiety ?F41.9 - Anxiety disorder, unspecified (ICD-10) Arthritis ?M19.90 - Unspecified osteoarthritis, unspecified site (ICD-10) Fibromyalgia ?M79.7 - Fibromyalgia (ICD-10) Chest pain ?R07.9 - Chest pain, unspecified (ICD-10) Surgical History (Updated 04/07/23 @ 12:18 by Shaikh Edwin MD) History of appendectomy ?Z90.49 - Acquired absence of other specified parts of digestive tract (ICD- 10) H/O: ?Z98.891 - History of uterine scar from previous surgery (ICD-10) Family History (Updated 04/07/23 @ 12:17 by Shaikh Edwin MD) Mother Family history of hypertension Atrial fibrillation Social History (Updated 04/07/23 @ 12:17 by Shaikh Edwin MD) Within the past year, how often did you have a drink containing alcohol: never Score interpretation: A score less than 3 is consistent with normal alcohol consumption. Smoking status: Never smoker Non-prescribed substance use: denies use Exam Constitutional Vital Signs, click to edit/add: Last Vital Signs Temp 98.4 F 03/24/24 17:36 Pulse 67 03/24/24 19:10 Resp 16 03/24/24 19:10 BP 142/66 H 03/24/24 19:10 Pulse Ox 97 03/24/24 19:10 O2 Del Method Room Air 03/24/24 19:10 Course Vital Signs Vital signs: Vital Signs Temperature 98.4 F 03/24/24 17:36 Pulse Rate 71 03/24/24 17:36 Respiratory Rate 16 03/24/24 17:36 Blood Pressure 157/91 H 03/24/24 17:36 Pulse Oximetry 100 03/24/24 17:36 Oxygen Delivery Method Room Air 03/24/24 17:36 Temperature 98.4 F 03/24/24 17:36 Pulse Rate 67 03/24/24 19:10 Respiratory Rate 16 03/24/24 19:10 Blood Pressure 142/66 H 03/24/24 19:10 Pulse Oximetry 97 03/24/24 19:10 Oxygen Delivery Method Room Air 03/24/24 19:10 MDM - Extremity Injury (Upper) MDM Narrative Medical decision making narrative: This is a pleasant 48-year-old female presents to the emergency department for evaluation of left hand injury. On arrival, afebrile, vital signs are stable. On exam, nontoxic, well-appearing patient in no distress. She has tenderness, bruising, swelling over the left thenar eminence. No tenderness to the remainder of the hand, distal radius and ulna, anatomical snuffbox. X-ray imaging, per radiologist reveals no acute findings Favor left hand contusion Fracture, dislocation less likely based on imaging Patient placed in Velcro wrist splint. Advised rest, ice, elevation Disposition ? The patient was discharged. Plan: Patient will be discharged to home. Condition at time of disposition: stable ? Advised to follow up with primary provider. Advised to return for any worsening and/or development of new, concerning signs or symptoms PLEASE NOTE: Portions of the medical record may have been produced using electronic child and family counselor and may contain errors with respect to translation of words which may not have been identified prior to finalization of the chart. I, Dr Farris, have reviewed the above progress note and course of action in the ER; agree with the above. I have gone over history and physical, and discussed disposition and treatment plan with the patient. Imaging Data Left hand x-ray: Radiologist's impression: ITS Impressions Wrist X-Ray 03/24/24 17:45
[2024-03-24 19:10] VITALS: BP 142/66; PULSE 67; O2SAT 97
== END 2024-03-24 19:10 | disposition home or self-care (01) ==
PROVIDERS: Emergency Provider Emergency Medicine
DX: S60.222A Contusion of left hand, initial encounter (principal); M79.642 Pain in left hand; W01.10XA Fall on same level from slipping, tripping and stumbling with subsequent striking against unspecified object, initial encounter
CPT/HCPCS: 73110; 99283

== ENCOUNTER 2025-05-31 08:35 | Outpatient (OUT) | payer OTHER, SELFPAY ==
--- NOTE | 2025-05-31 | XR_ITS ---
[facility] [place] [id number] Patient Name: APARNA SÁNCHEZ MRN: [id number] date: 1975 Sex: F Assigned Patient Location: RAD Current Patient Location: [facility] Accession/Order Number: [id number] Exam Date: 05/31/2025 12:28 Report Date: 05/31/2025 12:29 At the request of: MELITON HINTON DO Procedure: XR shoulder DORA min 2V 3 views both shoulders HISTORY: Bilateral shoulder pain for 3 weeks Acromioclavicular inferior spurring greater on the left. Adequate alignment. No acute bony findings. XR/XR shoulder DORA min 2V IMPRESSION: Moderate bilateral shoulder degeneration Impression dictated by: Gallo Montez M.D. 05/31/2025 12:29 PM Dictation Location: [place] [address] Electronically authenticated by: [id number] Y Date: 05/31/2025 12:29
--- OUTSIDE RECORDS SUMMARY | 2025-05-31 08:37 | XMS_ITS | Encounter Summary ---
Author Organization [facility] Address [address] [facility] [place] [address] Care Team Providers Care Lead Driver Name Role Phone Palomo Marrero MD Unavailable [phone] Unallocated, Noms Provider Primary Care Provi ayan Encounter Details Date Type Department Care Team (Late Contact Info) Description 07/21/2024 Abstract [facility] [address] [place] [phone] Monica Wu, [facility] [address] [place] [address] Social History Tobacco Use Types Packs/Day Years Used Date Smoking Tobacco: Never Smokeless Tobacco: Never Alcohol Use Standard Drinks/Week Comments Not Currently 0 (1 standard drink = 0.6 oz pur e alcohol) Comments Unknown Sex and Gender Information Value Date Recorded Sex Assigned at Not on file Legal Sex Female 7:20 PM EDT Gender Identity Not on file Sexual Orientation Not on file documented as of this encounter Plan of Treatment Upcoming Encounters Date Type Department Care Team (Late Contact Info) Description 07/21/2025 10:30 AM EDT Office Visit [facility] [address] [place] [address] Rocio Patten, HEL[place] [address] [place] [address] 07/23/2025 10:45 AM EDT Office Visit [facility] [address] [facility] [place] [phone] Keith Card DO [address] [place] [address] documented as of this encounter Visit Diagnoses Not on filedocumented in this encounter Care Teams Lead Driver Relationship Specialty Start Date End Date Unallocated, Sparkle Edwards MD [address] [place] [address] PCP - General Family Medicine 12/13/23 Palomo Marrero MD [address] [place] [phone] Referring Physician Family Medicine 12/09/23 documented as of this encounter
--- OUTSIDE RECORDS SUMMARY | 2025-05-31 08:37 | XMS_ITS | Encounter Summary ---
Author Organization [facility] Address [address] [place] [address] Care Team Providers Care Park Keeper Name Role Phone Palomo Marrero MD Unavailable [phone] Unallocated, Noms Provider Primary Care Provi ayan Encounter Details Date Type Department Care Team (Late Contact Info) Description 01/15/2024 External Result Encounter [facility] External Department Unsolicited Keith Card, [address] [place] [address] Social History Tobacco Use Types Packs/Day Years [...] Description 07/21/2025 10:30 AM EDT Office Visit [facility] [address] [place] [address] Rocio Patten, [place] [address] [place] [address] 07/23/2025 10:45 AM EDT Office Visit [facility] [address] [place] [phone] Keith Card DO [address] [place] [address] documented as of this encounter Procedures Procedure Name Priority Date/Time Associated Diagnosis Comments MR BRAIN W AND WO CONTRAST (ROUTINE) 01/15/2024 3:02 PM EDT documented in this encounter Results * MR brain w and wo contrast routine (01/15/2024 3:02 PM EDT) Anatomical Region Laterality Modality Brain Magnetic Resonan ce 01/15/2024 3:02 PM EDT Impressions 01/15/2024 3:25 PM EDT The cerebellopontine angles, internal auditory canals, and temporal bone structures are within normal limits. No acute intracranial pathology. No abnormal postcontrast enhancement. Chronic age-related neurodegenerative changes are noted, as above. Impression dictated by: Joao Sauceda M.D.01/15/2024 3:23 PM Dictation Location: [place] [address] Transcribed By: [facility] 01/15/24 1523 Dictated By: Joao Sauceda II, MD 01/15/24 1502 Signed By: <Electronically signed by Joao Sauceda II, MD in OV> 01/15/24 1523 Narrative 01/15/2024 3:[address] [facility] Main [address] [address] MRI Report Signed Patient: Krystal Rubalcava MR#: [id number] : 1975 Acct:[id number] Age/Sex: 48 / F ADM Date: 01/15/24 Loc: MR Room: Type: [facility] Attending Dr: Keith Card DO Copies to: Keith Card DO Ordering Provider: Keith Card DO Date of Service: 01/15/24 MR/MR head/brain wo/w con: [id number] MR head/brain wo/w con 01/15/2024 10:34 AM SIGN AND SYMPTOMS: Bilateral hearing loss, left greater than right PROTOCOL: Multiplanar multisequence MR images of the brain were obtained with and without IV contrast CONTRAST: 20 mL of intravenous ProHance COMPARISON: None. FINDINGS: Extra axial spaces: There is diffuse age-related cortical atrophy. Hemorrhage: None. Ventricular system: Within normal limits. Basal cisterns: Within normal limits and not effaced. Cerebral parenchyma: T2 and T2 FLAIR hyperintense foci are noted in the periventricular and subcortical white matter suggesting chronic microvascular ischemic change. Midline shift: None.. Cerebellum: Within normal limits. Brainstem: Within normal limits. Cerebellopontine angles: No mass or abnormal enhancement. Internal auditory canals: No mass or abnormal enhancement. Temporal bone structures: Within normal limits. OTHER: Calvarium: Normal marrow signal. Vascular system: Satisfactory flow voids within the anterior and posterior circulation. Visualized Paranasal sinuses: Within normal limits. Visualized Orbits: Within normal limits. Visualized upper cervical spine: Within normal limits. Sella and skull base: Within normal limits. MR/MR head/brain wo/w con Procedure Note Radiology, Radiologist, MD - 01/15/2024 [facility] [place] [address] [place] [address] MRI Report Signed Patient: Krystal Rubalcava RMR#: [id number] : 1975Acct:[id number] Age/Sex: 48 / FADM Date: 01/15/24 Loc: MR Room:Type: [facility] Attending Dr: Keith Card DO Copies to: Keith Card DO Ordering Provider: Keith Card DO Date of Service: 01/15/24 MR/MR head/brain wo/w con: [id number] MR head/brain wo/w con 01/15/2024 10:34 AM SIGN AND SYMPTOMS: Bilateral hearing loss, left greater than right PROTOCOL: Multiplanar multisequence MR images of the brain were obtainedwith and without IV contrast CONTRAST: 20 mL of intravenous ProHance COMPARISON: None. FINDINGS: Extra axial spaces: There is diffuse age-related cortical atrophy. Hemorrhage: None. Ventricular system: Within normal limits. Basal cisterns: Within normal limits and not effaced. Cerebral parenchyma: T2 and T2 FLAIR hyperintense foci are noted in theperiventricular and subcortical white matter suggesting chronic microvascular ischemic change. Midline shift: None.. Cerebellum: Within normal limits. Brainstem: Within normal limits. Cerebellopontine angles: No mass or abnormal enhancement. Internal auditory canals: No mass or abnormal enhancement. Temporal bone structures: Within normal limits. OTHER: Calvarium: Normal marrow signal. Vascular system: Satisfactory flow voids within the anterior and posteriorcirculation. Visualized Paranasal sinuses: Within normal limits. Visualized Orbits: Within normal limits. Visualized upper cervical spine: Within normal limits. Sella and skull base: Within normal limits. MR/MR head/brain wo/w con IMPRESSION: The cerebellopontine angles, internal auditory canals, and temporal bonestructures are within normal limits. No acute intracranial pathology. No abnormal postcontrast enhancement. Chronic age-related neurodegenerative changes are noted, as above. Impression dictated by: Joao Sauceda M.D.01/15/2024 3:23 PM Dictation Location: [place] [address] Transcribed By: [facility] 01/15/24 1523 Dictated By: Joao Sauceda II, MD 01/15/24 1502 Signed By: <Electronically signed by Joao Sauceda II, MD inO> 01/15/24 1523 Keith Card DO IMG MRI PROCEDURES Final Re sult documented in this encounter Visit Diagnoses Not on filedocumented in this encounter Care Teams Park Keeper Relationship Specialty Start Date End Date Unallocated, Noms MD Jerry [address] [place] [address] PCP - General Family Medicine 12/13/23 Palomo Marrero MD [address] [place] [phone] Referring Physician Family Medicine 12/09/23 documented as of this encounter
--- OUTSIDE RECORDS SUMMARY | 2025-05-31 08:37 | XMS_ITS | Clinical Summary ---
Author Organization [facility] Address [id number] [address] [place] [address] Care Team Providers Care Nurse Discharge Name Role Phone Unavailable Primary Care Provider Unavailabl e Social History Tobacco Use Types Packs/Day Years Used Date Smoking Tobacco: Never Assessed Childcare Answer Date Recorded Childcare Unknown 03/25/2019 Employment Answer Date Recorded Employment Unknown 03/25/2019 Comments Unknown Sex and Gender Information Value Date Recorded Sex Assigned at Female 12/12/2023 10:03 PM EST Legal Sex Female 12:00 PM EDT Gender Identity Female 12/12/2023 10:03 PM EST Sexual Orientation Straight 12/12/2023 10 :03 PM EST Plan of Treatment Health Maintenance Due Date Last Done Comments Depression Screening 1986 Tobacco Screening 1986 Adult BMI Screening 1992 DTaP,Tdap and Td Vaccines (1 - Tdap) 1993 Pap Smear 1995 Zoster (Shingles) Vaccine (1 of 2) 2024 Influenza Vaccine 06/14/2025 Medical Devices Not on file
--- OUTSIDE RECORDS SUMMARY | 2025-05-31 08:37 | XMS_ITS | Clinical Summary ---
Author Organization [facility] Address [address] [place] [address] Care Team Providers Care Air Traffic Control Operator Name Role Phone Palomo Marrero MD Unavailable [phone] Unallocated, [facility] Provider Primary Care Provi ayan Allergies Active Allergy Reactions Criticality Noted Date Comments Fexofenadine 01/02/2024 Other Reaction(s): hives Fexofenadine-Pseudoephed Er Rash Low 12/05/19 Cephalexin 12/13/2023 Latex 12/13/2023 Meloxicam 12/13/2023 Nickel 01/02/2024 Other Reaction(s): Rash, hives Venlafaxine 01/02/2024 Other Reaction(s): Rash Medications sucralfate (Carafate) 1 g tablet Twice daily 06/29/2024 Active PARoxetine (Paxil) 20 MG tablet TAKE 1 & 1/2 (ONE & ONE-HALF) TABLETS BY MOUTH ONCE DAILY 10/19/2023 Active hydrOXYzine pamoate (Vistaril) 25 MG capsule Take 25 mg by mouth Active amLODIPine-josue zepril (Lotrel) 10-20 MG capsule Take 1 capsule by mouth Daily 08/23/2024 Active omeprazole (PriLOSEC) [address] capsule TAKE 1 CAPSULE BY MOUTH ONCE DAILY 30 MINUTES TO 1 HOUR BEFORE A MEAL 12/07/2024 Active methocarbamol (Robaxin) 750 MG tabletIndicatio ns:Strain of lumbar region, initial encounter,Spasm of left trapezius muscle,Strain of left hip, initial encounter Take 1-2 tablets (750-1,500 mg) by mouth as needed at bedtime for muscle spasms for up to 7 days 14 tablet 12/21/2024 Active Resolved Problems Problem Noted Date Diagnosed Date Resolved Date Abnormal weight gain 07/22/2024 024 Allergic rhinitis due to ani mal hair and dander 07/22/2024 07/22/2024 Chronic rhinitis 07/22/2024 07/22/2024 Exercise counseling 07/22/2024 07/22/20 24 Encounter for dietary counse ling and surveillance 07/22/2024 07/22/2024 Equinus deformity of foot 07/22/2024 Flexural atopic dermatitis 07/22/2024 1 Depression with anxiety 07/22/202406/2024 Chronic low back pain 07/22/20242023 Fibromyalgia 07/22/2024 07/22/2024 Kidney stone 07/22/2024 07/22/2024 Mixed hyperlipidemia 07/22/2024 024 Nuclear senile cataract 07/22/202406/2024 BMI 40.0-44.9, adult 07/22/2024 024 Obesity, Class III, 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) 07/22/2024 07/22/2024 Other acquired deformities of right foot 07/22/2024 07/22/2024 Presbyopia 07/22/2024 07/22/2024 Primary osteoarthritis of left knee 07/22/2024 07/22/2024 Allergic rhinitis due to pollen 07/22/2024 07/22/2024 Seasonal allergic rhinitis 07/22/2024 1 Behavior-irritability 01/23/20242023 Bronchitis 01/23/2024 01/23/2024 Calculus of distal left ureter 01/23/2024 01/23/2024 Carpal tunnel syndrome on both sides 01/23/2024 01/23/2024 Chest pain, muscular 01/23/2024 024 Cough 01/23/2024 01/23/2024 Eczema 01/23/2024 01/23/2024 Hydronephrosis concurrent wi th and due to calculi of kidney and ureter 01/23/2024 01/23/2024 Lumbar back sprain 01/23/2024 Nausea and vomiting 01/23/2024 01/23/20 24 Renal colic on left side 01/23/202408/2024 Restless leg syndrome 01/23/20242023 Rotator cuff arthropathy of right shoulder 01/23/2024 01/23/2024 Strain of lumbar region 01/23/202401/12 Generalized anxiety disorder 11/14/2009 07/22/2024 Malaise and fatigue 11/14/2009 07/22/20 24 Family History Medical History Relation Name Comments No Known Problems Father No Known Problems Mother Relation Name Status Comments Father Mother Social History Tobacco Use Types Packs/Day Years Used Date Smoking Tobacco: Never Smokeless Tobacco: Never Tobacco Cessation:Counseling Given: Not Answered Alcohol Use Standard Drinks/Week Comments Not Currently 0 (1 standard drink = 0.6 oz pur e alcohol) Comments Unknown Sex and Gender Information Value Date Recorded Sex Assigned at Not on file Legal Sex Female 7:20 PM EDT Gender Identity Not on file Sexual Orientation Not on file Last Filed Vital Signs Vital Sign Reading Time Taken Comments Blood Pressure 126/88 12/21/2024 4:05 PM EDT Pulse 83 12/21/2024 4:05 PM EDT Temperature 36.6 C (97.9 F) 12/21/2024 4:05 PM EDT Respiratory Rate - - Oxygen Saturation 97% 12/21/2024 4:05 PM EDT Inhaled Oxygen Concentration - - Weight 103 kg (226 lb) 12/21/2024 4:05 PM EDT Height 160 cm (5' 3 ) 07/24/2024 10:26 AM EDT Body Mass Index 40.03 07/24/2024 10:26 AM EDT Plan of Treatment Upcoming Encounters Date Type Department Care Team (Late st Contact Info) Description 07/21/2025 10:30 AM EDT Office Visit [facility] [address] [facility] [address] Rocio Patten S, AUD [address] [facility] [place] [address] 07/23/2025 10:45 AM EDT Office Visit [facility] [address] [place] [phone] Keith Card DO [address] [place] [address] Health Maintenance Due Date Last Done Comments CT Colonography 1974 FIT-DNA 1974 FIT 1974 FOBT 1974 Sigmoidoscopy 1974 Pap Smear 1995 Cervical Cancer Screening 2004 HPV/Cotest 2004 Mammogram 06/02/2016 06/02/2015 Influenza Vaccine (#1) 2025 01/07/2025, 2023 Colonoscopy 12/04/2033 12/04/2023 Colorectal Cancer Screening 12/04/2033 Insurance [employer] Care Teams Air Traffic Control Operator Relationship Specialty Start Date End Date Unallocated, [facility], [address] [place], [place] [id number] PCP - General Family Medicine 12/13/23 Palomo Marrero MD [address] [place] [phone] Referring Physician Family Medicine 12/09/23
--- OUTSIDE RECORDS SUMMARY | 2025-05-31 08:37 | XMS_ITS | Patient Health Record ---
Author Organization [facility] [place] Address [address] [place] [address] Care Team Providers Care Garbage Depot Worker Name Role Phone None, Unknown or Primary Care Provider Unavailab le Reason For Referral No Information Problems Problem Type SNOMED Code ICD Code Onset Dates Problem Status W/U Status Risk Notes Problem Chest pain (R07.9) Active confirmed Plan Of Treatment No Information Insurance Providers Payer Name Payer Address Payer Phone Subscriber Number Group Number Insured Name Patient Relationship to Insured Coverage Start Date Coverage End Date [employer] [place] [employer] [address] [facility] [phone] [id number] Krystal Melendez Self - patient is the insured
--- OUTSIDE RECORDS SUMMARY | 2025-05-31 08:37 | XMS_ITS | Encounter Summary ---
Author Organization [facility] Address [address] [place] [place] [address] Care Team Providers Care Biscuit Packer Name Role Phone Palomo Marrero MD Unavailable [phone] Unallocated, [facility] Provider Primary Care Provi ayan Encounter Details Date Type Department Care Team (Late Contact Info) Description 03/02/2024 Abstract [facility] [address] [place] [phone] Monica Wu, [facility] [address] [place] [address] Social History Tobacco Use Types Packs/Day Years [...] Office Visit [facility] [address] [place] [phone] Rocio Patten, HELGA [address] [place] [address] 07/23/2025 10:45 AM EDT Office Visit [facility] [address] [facility] [place] [phone] Keith Card DO [address] [place] [address] documented as of this encounter Visit Diagnoses Not on filedocumented in this encounter Care Teams Biscuit Packer Relationship Specialty Start Date End Date Unallocated, Sparkle Edwards MD [address] [place] [address] PCP - General Family Medicine 12/13/23 Palomo Marrero MD [address] [place] [phone] Referring Physician Family Medicine 12/09/23 documented as of this encounter
--- OUTSIDE RECORDS SUMMARY | 2025-05-31 08:46 | XMS_ITS | CCD ---
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 silhouette is normal in appearance. The pulmonary vessels are not cephalized. There is no alveolar edema, pneumonia, or pneumothorax. Negative for pleural effusion. The skeleton is remarkable for moderate thoracic spinal spondylosis. Impression: Negative for specific acute cardiopulmonic pathology. Dictated on: 09/17/2024 12:57 PM This report has been electronically signed and approved by the interpreting Radiologist. Joao Mao MD - 09/17/2024 EXAM: XR CHEST 2 VIEWS Clinical History: Cough, congestion Reference Exam: No comparison Findings: The cardiopericardial silhouette is normal in appearance. The pulmonary vessels are not cephalized. There is no alveolar edema, pneumonia, or pneumothorax. Negative for pleural effusion. The skeleton is remarkable for moderate thoracic spinal spondylosis. Impression: Negative for specific acute cardiopulmonic pathology. Dictated on: 09/17/2024 12:57 PM This report has been electronically signed and approved by the interpreting Radiologist. [facility] Radiology Study observation (narrative) [facility] XR Chest 2 ViewsOrdered By: Joao Jaime on 09-17-2024 [facility] Work Phone: Alanine aminotransferase [En zymatic activity/volume] in Serum or PlasmaOrdered By: Kaylene Arredondo on 08-07-2024 ALT [Catalytic activity/Vol] 12 U/L Normal 7-52 [facility] Comment on above: Order Comment: FASTI NG. JKW Performed By: #### C MP wRFX A1C, TSH3, LIPID, CBC ####[facility] Albumin [Mass/volume] in Ser um or Plasma by Bromocresol green (BCG) dye binding methoOrdered By: Kaylene Arredondo on 08-07-2024 Albumin BCG dye [Mass/Vol] 4.0 g/dL 3.5-5.7 [facility] Alkaline phosphatase [Enzyma tic activity/volume] in Serum or PlasmaOrdered By: Kaylene Arredondo on 08-07-2024 ALP [Catalytic activity/Vol] 61 U/L Normal 34-104 [facility] Comment on above: Order Comment: CHELSIE SCHULTZ. JKW Performed By: #### C MP wRFX A1C, TSH3, LIPID, CBC ####[place] [id number] [address] Aspartate aminotransferase [ Enzymatic activity/volume] in Serum or PlasmaOrdered By: Kaylene Arredondo on 08-07-2024 AST [Catalytic activity/Vol] 13 U/L Normal 13-39 [facility] Comment on above: Order Comment: CHELSIE SCHULTZ. JKW Performed By: #### C MP wRFX A1C, TSH3, LIPID, CBC ####[facility] Automated basophil %Ordered By: Kaylene Arredondo on 08-07-2024 Basophils/100 WBC (Bld) 1.1 % Normal . [facility] Comment on above: Performed By: #### C MP wRFX A1C, TSH3, LIPID, CBC #### [address] Automated basophil countOrde red By: Kaylene Arredondo on 08-07-2024 Basophils (Bld) [#/Vol] 0.1 10*3/uL Normal 0.0-0.2 [facility] Comment on above: Result Comment: PERF ORMED BY: [place] [address] PATHOLOGIST IT SERVICE MANAGER VENUS KAUR M.D. Performed By: #### C MP wRFX A1C, TSH3, LIPID, CBC #### [facility] [address] Automated blood monocyte cou ntOrdered By: Kaylene Arredondo on 08-07-2024 Monocytes (Bld) [#/Vol] 0.5 10*3/uL Normal 0.0-0.8 [facility] Comment on above: Performed By: #### C MP wRFX A1C, TSH3, LIPID, CBC #### [address] Automated eosinophil %Ordere d By: Kaylene Arredondo on 08-07-2024 Eosinophils/100 WBC (Bld) 3.2 % Normal . [facility] Comment on above: Performed By: #### C MP wRFX A1C, TSH3, LIPID, CBC #### [address] Automated eosinophil countOr dered By: Kaylene Arredondo on 08-07-2024 Eosinophils (Bld) [#/Vol] 0.2 10*3/uL Normal 0.0-0.45 [facility] Comment on above: Performed By: #### C MP wRFX A1C, TSH3, LIPID, CBC #### [address] Automated monocyte %Ordered By: Kaylene Arredondo on 08-07-2024 Monocytes/100 WBC (Bld) 9.4 % Normal . [facility] Comment on above: Performed By: #### C MP wRFX A1C, TSH3, LIPID, CBC #### [address] Automated neutrophil %Ordere d By: Kaylene Arredondo on 08-07-2024 Neutrophils/100 WBC (Bld) 53.5 % Normal . [facility] Comment on above: Performed By: #### C MP wRFX A1C, TSH3, LIPID, CBC #### [address] Bilirubin.total [Mass/volume ] in Serum or PlasmaOrdered By: Kaylene Arredondo on 08-07-2024 Bilirubin [Mass/Vol] 0.6 mg/dL Normal 0.3-1.0 [facility] Comment on above: Order Comment: FASTI NG. JKW Performed By: #### C MP wRFX A1C, TSH3, LIPID, CBC ####[place] [address] [place] [address] [facility] CMP with reflex to A1Con Albumin [Mass/Vol] 4.0 g/dL Normal 3.5-5.7 [facility] Comment on above: Order Comment: FASTI NG. JKW Performed By: #### C MP wRFX A1C, TSH3, LIPID, CBC ####[place] [id number] [place] [id number] [facility] GFR/1.73 sq M.predicted MDRD (S/P/Bld) [Vol rate/Area] mL/min/{1.73_m2} Normal [facility] Comment on above: Order Comment: FASTI NG. JKW Performed By: #### C MP wRFX A1C, TSH3, LIPID, CBC ####[address] Calcium [Mass/volume] in Ser um or PlasmaOrdered By: Kaylene Arredondo on 08-07-2024 Calcium [Mass/Vol] 9.2 mg/dL Normal 8.6-10.[address] [facility] Comment on above: Order Comment: FASTI NG. JKW Performed By: #### C MP wRFX A1C, TSH3, LIPID, CBC ####[place] [id number] [facility] Carbon dioxide, total [Moles /volume] in Serum or PlasmaOrdered By: Kaylene Arredondo on 08-07-2024 CO2 [Moles/Vol] 27.1 mmol/L Normal 21.0-31.0 [facility] Comment on above: Order Comment: FASTI NG. JKW Performed By: #### C MP wRFX A1C, TSH3, LIPID, CBC ####[address] [place] [address] [place] Chloride [Moles/volume] in S valentino or PlasmaOrdered By: Kaylene Arredondo on 08-07-2024 Chloride [Moles/Vol] 107 mmol/L Normal 98-107 [facility] Comment on above: Order Comment: CHELSIE BarrowKW Performed By: #### C MP wRFX A1C, TSH3, LIPID, CBC ####[facility] [id number] [place] [id number] [place] Cholesterol [Mass/volume] in Serum or PlasmaOrdered By: Kaylene Arredondo on 08-07-2024 Cholesterol [Mass/Vol] 156 mg/dL Normal 140-200 [facility] Comment on above: Chol less than 200 m g/dl low riskChol 201-239 mg/dl borderline riskChol 240 mg/dl and greater high risk Order Comment: CHELSIE MCFARLANE JKW Result Comment: Chol less than 200 mg/dl low risk Chol 201-239 mg/dl borderline risk Chol 240 mg/dl and greater high risk Performed By: #### C MP wRFX A1C, TSH3, LIPID, CBC ####[facility] [id number] [place] [address] [facility] Cholesterol in LDL Calc [Mas s/Vol]Ordered By: Kaylene Arredondo on 08-07-2024 Cholesterol in LDL [Mass/Vol] 87 mg/dL 0-100 [facility] Comment on above: LDL ATP III CLASSIFI CATIONLDL less than 100 mg/dL OptimalLDL 100-129 mg/dL Near or above optimalLDL 130-159 mg/dL Borderline highLDL 160-189 mg/dL HighLDL greater than 189 mg/dL Very high Cholesterol in VLDL Calc [Ma ss/Vol]Ordered By: Kaylene Arredondo on 08-07-2024 Cholesterol in VLDL [Mass/Vol] 15 mg/dL [facility] Complete Blood Count Auto Di ffon 08-07-2024 Mean Corpuscular HGB Conc 34.1 g/dL Normal 32.0-35.0 [facility] Comment on above: Performed By: #### C MP wRFX A1C, TSH3, LIPID, CBC #### [facility] [address] [place] [address] NRBC% 0.1 /100{WBC} Normal 0-0.5 [facility] Comment on above: Performed By: #### C MP wRFX A1C, TSH3, LIPID, CBC #### [facility] [address] [place] [address] [place] Creatinine [Mass/volume] in Serum or PlasmaOrdered By: Kaylene Arredondo on 08-07-2024 Creatinine [Mass/Vol] 0.85 mg/dL Normal 0.60-1.20 [facility] Comment on above: Order Comment: FASTI NG. JKW Performed By: #### C MP wRFX A1C, TSH3, LIPID, CBC ####[address] Erythrocyte distribution wid th [Ratio] by Automated countOrdered By: Kaylene Arredondo on 08-07-2024 Erythrocyte distribution width (RBC) [Ratio] 12.6 % Normal 11.9-15.3 [facility] Comment on above: Performed By: #### C MP wRFX A1C, TSH3, LIPID, CBC #### [place] [address] [place] Erythrocytes [#/volume] in B lood by Automated countOrdered By: Kaylene Arredondo on 08-07-2024 RBC (Bld) [#/Vol] 4.94 10*6/uL Normal 3.60-5.00 [facility] Comment on above: Performed By: #### C MP wRFX A1C, TSH3, LIPID, CBC #### [place] [address] [place] Glucose [Mass/volume] in Ser um or PlasmaOrdered By: Kaylene Arredondo on 08-07-2024 Glucose [Mass/Vol] 90 mg/dL Normal 70-[address] [facility] Comment on above: Order Comment: FASTI NG. JKW Performed By: #### C MP wRFX A1C, TSH3, LIPID, CBC ####[place] [address] [place] Hematocrit [Volume Fraction] of Blood by Automated countOrdered By: Kaylene Arredondo on 08-07-2024 Hematocrit (Bld) [Volume fraction] 43.5 % Normal 34.0-46.4 [facility] Comment on above: Performed By: #### C MP wRFX A1C, TSH3, LIPID, CBC #### [facility] [address] Hemoglobin [Mass/volume] in BloodOrdered By: Kaylene Arredondo on 08-07-2024 Hemoglobin (Bld) [Mass/Vol] 14.8 g/dL Normal 11.8-15.4 [facility] Comment on above: Performed By: #### C MP wRFX A1C, TSH3, LIPID, CBC #### [facility] [address] Leukocytes [#/volume] correc eugenie for nucleated erythrocytes in Blood by Automated counOrdered By: Kaylene Arredondo on 08-07-2024 WBC corrected for nucl RBC Auto (Bld) [#/Vol] 5.4 10*3/uL 3.8-11.6 [facility] Leukocytes [#/volume] in Blo od by Automated countOrdered By: Kaylene Arredondo on 08-07-2024 WBC (Bld) [#/Vol] 5.4 10*3/uL Normal 3.8-11.[address] [facility] Comment on above: Performed By: #### C MP wRFX A1C, TSH3, LIPID, CBC #### [facility] [address] Lipid Panelon 08-07-2024 LDL Cholesterol,Calculated 87 mg/dL Normal 0-100 [facility] Comment on above: Order Comment: CHELSIE WILLARD Result Comment: LDL ATP III CLASSIFICATION LDL less than 100 mg/dL Optimal LDL 100-129 mg/dL Near or above optimal LDL 130-159 mg/dL Borderline high LDL 160-189 mg/dL High LDL greater than 189 mg/dL Very high Performed By: #### C MP wRFX A1C, TSH3, LIPID, CBC ####[facility] Triglyceride w/Reflex 79 mg/dL Normal 0-149 [facility] Comment on above: Order Comment: CHELSIE BarrowKW Result Comment: TRIG ATP III CLASSIFICATION TRIG less than 150 mg/dL Normal TRIG 150-199 mg/dL Borderline high TRIG 200-500 mg/dL High TRIG greater than 500 mg/dL Very high Standard traceable to the Center for Disease Conrtrol and Prevention (CDC) test method. Performed By: #### C MP wRFX A1C, TSH3, LIPID, CBC ####[address] VLDL CHOLESTEROL 15 mg/dL Normal [facility] Comment on above: Order Comment: CHELSIE BarrowKW Performed By: #### C MP wRFX A1C, TSH3, LIPID, CBC ####[address] Lymphocytes [#/volume] in Bl ood by Automated countOrdered By: Kaylene Arredondo on 08-07-2024 Lymphocytes (Bld) [#/Vol] 1.8 10*3/uL Normal 1.00-4.8 [facility] Comment on above: Performed By: #### C MP wRFX A1C, TSH3, LIPID, CBC #### [address] Lymphocytes/100 leukocytes i n Blood by Automated countOrdered By: Kaylene Arredondo on 08-07-2024 Lymphocytes/100 WBC (Bld) 32.8 % Normal . [facility] Comment on above: Performed By: #### C MP wRFX A1C, TSH3, LIPID, CBC #### [address] MCH [Entitic mass] by Automa eugenie countOrdered By: Kaylene Arredondo on 08-07-2024 MCH (RBC) [Entitic mass] 30.0 pg Normal 24.7-34.3 [facility] Comment on above: Performed By: #### C MP wRFX A1C, TSH3, LIPID, CBC #### [address] MCHC Auto (RBC) [Mass/Vol]Or dered By: Kaylene Arredondo on 08-07-2024 MCHC (RBC) [Mass/Vol] 34.1 g/dL 32.0-35.0 [facility] MCV [Entitic volume] by Auto mated countOrdered By: Kaylene Arredondo on 08-07-2024 MCV (RBC) [Entitic vol] 88.0 fL Normal 80-[address] [facility] Comment on above: Performed By: #### C MP wRFX A1C, TSH3, LIPID, CBC #### [facility] [address] Neutrophils [#/volume] in Bl ood by Automated countOrdered By: Kaylene Arredondo on 08-07-2024 Neutrophils (Bld) [#/Vol] 2.9 10*3/uL Normal 1.8-7.7 [facility] Comment on above: Performed By: #### C MP wRFX A1C, TSH3, LIPID, CBC #### [facility] [address] [place] [address] No Panel InformationOrdered By: Kaylene Arredondo on 08-07-2024 Estimated GFR (CKD-EPI) > 60.0 mL/Min [facility] Creatinine Clearance (Chem N/A [facility] Nucleated erythrocytes [Pres ence] in Blood by Automated countOrdered By: Kaylene Arredondo on 08-07-2024 Nucleated RBC Auto Ql (Bld) 0.1 /100{WBC} 0-0.5 [facility] Platelet mean volume [Entiti c volume] in Blood by Automated countOrdered By: Kaylene Arredondo on 08-07-2024 Platelet mean volume (Bld) [Entitic vol] 8.2 fL Normal 6.3-10.7 [facility] Comment on above: Performed By: #### C MP wRFX A1C, TSH3, LIPID, CBC #### [address] Platelets [#/volume] in Bloo d by Automated countOrdered By: Kaylene Arredondo on 08-07-2024 Platelets (Bld) [#/Vol] 357 10*3/uL Normal 150-450 [facility] Comment on above: Performed By: #### C MP wRFX A1C, TSH3, LIPID, CBC #### [facility] [address] Potassium [Moles/volume] in Serum or PlasmaOrdered By: Kaylene Arredondo on 08-07-2024 Potassium [Moles/Vol] 4.4 mmol/L Normal 3.5-5.1 [facility] Comment on above: Order Comment: FASTI NG. JKW Performed By: #### C MP wRFX A1C, TSH3, LIPID, CBC ####[place] [id number] Protein [Mass/volume] in Ser um or PlasmaOrdered By: Kaylene Arredondo on 08-07-2024 Protein [Mass/Vol] 6.7 g/dL Normal 6.4-8.[address] [facility] Comment on above: Order Comment: FASTI NG. JKW Performed By: #### C MP wRFX A1C, TSH3, LIPID, CBC ####[place] [id number] Serum globulin measurement b y calculation (mass/volume)Ordered By: Kaylene Arredondo on 08-07-2024 Globulin (S) [Mass/Vol] 2.7 g/dL Normal [facility] Comment on above: Order Comment: FASTI NG. JKW Performed By: #### C MP wRFX A1C, TSH3, LIPID, CBC ####[facility] [id number] Serum or plasma albumin/glob ulin mass ratioOrdered By: Kaylene Arredondo on 08-07-2024 Albumin/Globulin [Mass ratio] 1.5 {ratio} Normal [facility] Comment on above: Order Comment: FASTI NG. JKW Performed By: #### C MP wRFX A1C, TSH3, LIPID, CBC ####[place] [id number] Serum or plasma anion gap de terminationOrdered By: Kaylene Arredondo on 08-07-2024 Anion gap [Moles/Vol] 8.3 mmol/L Normal 6.0-15.0 [facility] Comment on above: Order Comment: CHELSIE SCHULTZ. DanialKW Performed By: #### C MP wRFX A1C, TSH3, LIPID, CBC ####[place] [id number] Serum or plasma high density lipoprotein (HDL) cholesterol measurementOrdered By: Kaylene Arredondo on 08-07-2024 Cholesterol in HDL [Mass/Vol] 53 mg/dL Normal 23-92 [facility] Comment on above: HDL CHOL ATP-III CLA SSIFICATION Cardiovascular RiskHDL > or equal to 60 mg/dL LOWHDL < 40 mg/dL HIGH Order Comment: CHELSIE BarrowKW Result Comment: HDL CHOL ATP-III CLASSIFICATION Cardiovascular Risk HDL > or equal to 60 mg/dL LOW HDL < 40 mg/dL HIGH Performed By: #### C MP wRFX A1C, TSH3, LIPID, CBC ####[address] Serum or plasma total choles terol/high density lipoprotein (HDL) cholesterol mass ratOrdered By: Kaylene Arredondo on 08-07-2024 Cholesterol.total/Choles terol in HDL [Mass ratio] 2.9 {ratio} Normal <5.0 [facility] Comment on above: Order Comment: CHELSIE BarrowKW Performed By: #### C MP wRFX A1C, TSH3, LIPID, CBC ####[address] Sodium [Moles/volume] in Ser um or PlasmaOrdered By: Kaylene Arredondo on 08-07-2024 Sodium [Moles/Vol] 138 mmol/L Normal 136-[address] [facility] Comment on above: Order Comment: CHELSIE BarrowKW Performed By: #### C MP wRFX A1C, TSH3, LIPID, CBC ####[address] Thyrotropin [Units/volume] i n Serum or PlasmaOrdered By: Kaylene Arredondo on 08-07-2024 TSH Qn 1.97 m[IU]/L Normal 0.45-5.33 [facility] Comment on above: Order Comment: CHELSIE WILLARD Result Comment: PERF ORMED BY: [facility] [address] [place] [id number] PATHOLOGIST IT SERVICE MANAGER VENUS KAUR M.D. Performed By: #### C MP wRFX A1C, TSH3, LIPID, CBC ####[place] [id number] Triglyceride [Mass/volume] i n Serum or PlasmaOrdered By: Kaylene Arredondo on 08-07-2024 Triglyceride [Mass/Vol] 79 mg/dL 0-[address] [facility] Comment on above: TRIG ATP III CLASSIF ICATIONTRIG less than 150 mg/dL NormalTRIG 150-199 mg/dL Borderline highTRIG 200-500 mg/dL High TRIG greater than 500 mg/dL Very highStandard traceable to the Center for Disease Conrtrol and Prevention (CDC) test method. Urea nitrogen [Mass/volume] in Serum or PlasmaOrdered By: Kaylene Arredondo on 08-07-2024 Urea nitrogen [Mass/Vol] 12 mg/dL Normal 7-25 [facility] Comment on above: Order Comment: CHELSIE WILLARD Performed By: #### C MP wRFX A1C, TSH3, LIPID, CBC ####[address] Auditory function testson Right Ear: Mild sensorineural hearing loss from 500 Hz - 1K Hz and above 3K Hz Left Ear: Mild to severe sensorineural hearing loss [facility] Bilirubin Test strip Ql (U)O rdered By: Larry Fragoso on 01-02-2024 Bilirubin Ql (U) Negative Negative [facility] Color Auto (U)Ordered By: Nahum Fragoso on 01-02-2024 Color (U) Yellow Yellow [facility] HCG ( test) IA.rapi d Ql (U)Ordered By: Larry Fragoso on 01-02-2024 HCG ( test) Ql (U) Negative [facility] Ketones Auto test strip (U) [Mass/Vol]Ordered By: Larry Fragoso on 01-02-2024 Ketones (U) [Mass/Vol] Negative Negative [facility] Nitrite Test strip Ql (U)Ord ered By: Larry Fragoso on 01-02-2024 Nitrite Ql (U) Negative Negative [facility] Protein Auto test strip (U) [Mass/Vol]Ordered By: Larry Fragoso on 01-02-2024 Protein (U) [Mass/Vol] Negative Negative [facility] Specific gravity Auto test s trip (U) [Rel density]Ordered By: Larry Fragoso on 01-02-2024 Specific gravity (U) [Rel density] 1.027 1.001-1.030 [facility] Urine clarity by refractomet ry automatedOrdered By: Larry Fragoso on 01-02-2024 Clarity Refractometry automated (U) Clear Clear [facility] Urine glucose measurement by automated test strip (mass/volume)Ordered By: Larry Fragoso on 01-02-2024 Glucose Auto test strip (U) [Mass/Vol] Normal mg/dL Normal [facility] Urine hemoglobin detection b y automated test stripOrdered By: Larry Fragoso on 01-02-2024 Hemoglobin Auto test strip Ql (U) Negative Negative [facility] Urine leukocyte esterase det ection by automated test stripOrdered By: Larry Fragoso on 01-02-2024 Leukocyte esterase Auto test strip Ql (U) Negative Negative [facility] Urobilinogen Auto test strip (U) [Mass/Vol]Ordered By: Larry Fragoso on 01-02-2024 Urobilinogen (U) [Mass/Vol] Normal mg/dL Normal [facility] pH Auto test strip (U)Ordere d By: Larry Fragoso on 01-02-2024 pH (U) 6.0 [pH] 5.0-9.0 [facility] Auditory function testson Right Ear: Mild sensorineural hearing loss at 1K Hz. Mild to moderate sensorineura hearing loss above 3K Hz Left Ear: Mild sloping to severe sensorineural hearing loss [facility] Provider Letteron 04-26-2023 Provider Letter February 06, 2023 [address] [place] [address] LILIANIEVESAPARNA 1975 Dear Aparna, You missed your scheduled appointment on: January with Dr. Larissa Cordova, and the purpose of this letter is to inform you of our *No Show Policy*. Our appointment slots fill rapidly and when we have a no show appointment that time is lost. We could have used that time slot to care for a patient who needed to see one of our providers. Therefore, we ask that you call 24 hours in advance to cancel your appointment. Please call our office to reschedule this appointment as soon as possible, the phone number that we have on file for you is no longer in service. Sincerely, [facility] [address] [facility], [place] [address] [facility] RAD - Ultrasound Reporton RAD - Ultrasound Report [id number] .[id number]:127 [facility] RAD - MISCon 12-09-2022 RAD - MISC [id number]. 00CD:127 [facility] ED Note-Physicianon 11-29-19 ED Note-Physician [id number] 1.00CD:127 [facility] Formson 11-29-2022 Forms [id number] .00CD:127 [facility] Screenson 11-29-2022 Screens [id number] 1.00CD:127 [facility] Ambulatory Visit Summaryon 0 11-28-2022 Ambulatory Visit Summary LILIAAPARNA :1975 Visit Date:11/28/2022 Ambulatory Visit Instructions Your Diagnosis Ureteral stone with hydronephrosis History of kidney stones Stress incontinence Your Care Team Attending Physician - Art KINGSTON, Larissa Nayak Primary Care Physician - PALOMO MARRERO CNP This Is Your Medications List tamsulosin (Flomax 0.4 mg Cap) Contact prescribing physician if questions or concerns Misc Prescription (VITAMIN D3 50 MCG (2,000 UNIT) CAPSULE) acetaminophen-oxycodo ne (acetaminophen-oxycod one 325 mg-5 mg Tab) ibuprofen (ibuprofen 600 mg Tab) ondansetron (ondansetron 4 mg Dis Tab) paroxetine (paroxetine 10 mg Tab) tacrolimus topical (tacrolimus topical 0.1% ointment) tamsulosin (tamsulosin 0.4 mg Cap) Procedures Performed Appendectomy, section, Colonoscopy, Tubal ligation. Discharge Vitals Heart Rate (Peripheral) 69 Blood Pressure 157/91 Height 160 cm Height 63 in Weight 102 kg Weight 224.4 lb BMI 39.84 What to do next You Need to Schedule the Following Appointments Follow Up with Art KINGSTON, Larissa Nayak, URL, URO When: Where: Medications What How Much When Instructions New tamsulosin (Flomax 0.4 mg Cap) 1 Capsules By Mouth Every day Duration: [address] [facility] [address] Unchanged acetaminophen-oxycodo ne (acetaminophen-oxycod one 325 mg-5 mg Tab) Contact prescribing physician if questions or concerns Unchanged ibuprofen (ibuprofen 600 mg Tab) Contact prescribing physician if questions or concerns Unchanged Misc Prescription (VITAMIN D3 50 MCG (2,000 UNIT) CAPSULE) 0 Contact prescribing physician if questions or concerns Unchanged ondansetron (ondansetron 4 mg Dis Tab) Contact prescribing physician if questions or concerns Unchanged paroxetine (paroxetine 10 mg Tab) By Mouth Every day Contact prescribing physician if questions or concerns Unchanged tacrolimus topical (tacrolimus topical 0.1% ointment) Contact prescribing physician if questions or concerns Unchanged tamsulosin (tamsulosin 0.4 mg Cap) Contact prescribing physician if questions or concerns Pharmacy Information [phone]: [phone] [facility] [address] [place], [place] [id number] [phone] Allergies Chocolate (Unknown) Keflex (Unknown) Latex (Unknown) Nickel (Unknown) Problems Ongoing - Any problem that you are currently receiving treatment for. History of kidney stones Stress incontinence Ureteral stone with hydronephrosis Education Materials Dietary Guidelines to Help Prevent Kidney Stones Kidney stones are deposits of minerals and salts that form inside your kidneys. Your risk of developing kidney stones may be greater depending on your diet, your lifestyle, the medicines you take, and whether you have certain medical conditions. Most people can reduce their chances of developing kidney stones by following the instructions below. Depending on your overall health and the type of kidney stones you tend to develop, your dietitian may give you more specific instructions. What are tips for following this plan? Reading food labels ? Choose foods with no salt added or low-salt labels. Limit your sodium intake to less than 1500 mg per day. ? Choose foods with calcium for each meal and snack. Try to eat about 300 mg of calcium at each meal. Foods that contain 200?500 mg of calcium per serving include: ? 8 oz (237 ml) of milk, fortified nondairy milk, and fortified fruit juice. ? 8 oz (237 ml) of kefir, yogurt, and soy yogurt. ? 4 oz (118 ml) of tofu. ? 1 oz of cheese. ? 1 cup (300 g) of dried figs. ? 1 cup (91 g) of cooked broccoli. ? 1?3 oz can of sardines or mackerel. ? Most people need 1000 to 1500 mg of calcium each day. Talk to your dietitian about how much calcium is recommended for you. Shopping ? Buy plenty of fresh fruits and vegetables. Most people do not need to avoid fruits and vegetables, even if they contain nutrients that may contribute to kidney stones. ? When shopping for convenience foods, choose: ? Whole pieces of fruit. ? Premade salads with dressing on the side. ? Low-fat fruit and yogurt smoothies. ? Avoid buying frozen meals or prepared deli foods. ? Look for foods with live cultures, such as yogurt and kefir. Cooking ? Do not add salt to food when cooking. Place a salt shaker on the table and allow each person to add his or her own salt to taste. ? Use vegetable protein, such as beans, textured vegetable protein (TVP), or tofu instead of meat in pasta, casseroles, and soups. Meal planning ? Eat less salt, if told by your dietitian. To do this: ? Avoid eating processed or premade food. ? Avoid eating fast food. ? Eat less animal protein, including cheese, meat, poultry, or fish, if told by your dietitian. To do this: ? Limit the number of times you have meat, poultry, fish, or cheese each week. Eat a diet free of meat (more content not included)... [facility] Patient Educationon 11-28-19 Patient Education Urology Dietary Guidelines to Help Prevent Kidney Stones Kidney stones are deposits of minerals and salts that form inside your kidneys. Your risk of developing kidney stones may be greater depending on your diet, your lifestyle, the medicines you take, and whether you have certain medical conditions. Most people can reduce their chances of developing kidney stones by following the instructions below. Depending on your overall health and the type of kidney stones you tend to develop, your dietitian may give you more specific instructions. What are tips for following this plan? Reading food labels ? Choose foods with no salt added or low-salt labels. Limit your sodium intake to less than 1500 mg per day. ? Choose foods with calcium for each meal and snack. Try to eat about 300 mg of calcium at each meal. Foods that contain 200?500 mg of calcium per serving include: ? 8 oz (237 ml) of milk, fortified nondairy milk, and fortified fruit juice. ? 8 oz (237 ml) of kefir, yogurt, and soy yogurt. ? 4 oz (118 ml) of tofu. ? 1 oz of cheese. ? 1 cup (300 g) of dried figs. ? 1 cup (91 g) of cooked broccoli. ? 1?3 oz can of sardines or mackerel. ? Most people need 1000 to 1500 mg of calcium each day. Talk to your dietitian about how much calcium is recommended for you. Shopping ? Buy plenty of fresh fruits and vegetables. Most people do not need to avoid fruits and vegetables, even if they contain nutrients that may contribute to kidney stones. ? When shopping for convenience foods, choose: ? Whole pieces of fruit. ? Premade salads with dressing on the side. ? Low-fat fruit and yogurt smoothies. ? Avoid buying frozen meals or prepared deli foods. ? Look for foods with live cultures, such as yogurt and kefir. Cooking ? Do not add salt to food when cooking. Place a salt shaker on the table and allow each person to add his or her own salt to taste. ? Use vegetable protein, such as beans, textured vegetable protein (TVP), or tofu instead of meat in pasta, casseroles, and soups. Meal planning ? Eat less salt, if told by your dietitian. To do this: ? Avoid eating processed or premade food. ? Avoid eating fast food. ? Eat less animal protein, including cheese, meat, poultry, or fish, if told by your dietitian. To do this: ? Limit the number of times you have meat, poultry, fish, or cheese each week. Eat a diet free of meat at least 2 days a week. ? Eat only one serving each day of meat, poultry, fish, or seafood. ? When you prepare animal protein, cut pieces into small portion sizes. For most meat and fish, one serving is about the size of one deck of cards. ? Eat at least 5 servings of fresh fruits and vegetables each day. To do this: ? Keep fruits and vegetables on hand for snacks. ? Eat 1 piece of fruit or a handful of berries with breakfast. ? Have a salad and fruit at lunch. ? Have two kinds of vegetables at dinner. ? Limit foods that are high in a substance called oxalate. These include: ? Spinach. ? Rhubarb. ? Beets. ? Potato chips and lao fries. ? Nuts. ? If you regularly take a diuretic medicine, make sure to eat at least 1?2 fruits or vegetables high in potassium each day. These include: ? Avocado. ? Banana. ? [place], prune, carrot, or tomato juice. ? Baked potato. ? Cabbage. ? Beans and split peas. General instructions ? Drink enough fluid to keep your urine clear or pale yellow. This is the most important thing you can do. ? Talk to your health care provider and dietitian about taking daily supplements. Depending on your health and the cause of your kidney stones, you may be advised: ? Not to take supplements with vitamin C. ? To take a calcium supplement. ? To take a daily probiotic supplement. ? To take other supplements such as magnesium, fish oil, or vitamin B6. ? Take all medicines and supplements as told by your health care provider. ? Limit alcohol intake to no more than 1 drink a day for non women and 2 drinks a day for men. One drink equals 12 oz of beer, 5 oz of wine, or 1? oz of hard liquor. ? Lose weight if told by your health care provider. Work with your dietitian to find strategies and an eating plan that works best for you. What foods are not recommended? Limit your intake of the following foods, or as told by your dietitian. Talk to your dietitian about specific foods you should avoid based on the type of kidney stones and your overall health. Grains Breads. Bagels. Rolls. Baked goods. Salted crackers. Cereal. Pasta. Vegetables Spinach. Rhubarb. Beets. Canned vegetables. Pickles. Olives. Meats and other protein foods Nuts. Nut butters. Large portions of meat, poultry, or fish. Salted or cured meats. Deli meats. Hot dogs. Sausages. Dairy Cheese. Beverages Regular soft drinks. Regular vegetable juice. Seasonings and other foods Seasoning blends with salt. Salad dr (more content not included)... [facility] Urology Office/Clinic Noteon 11-28-2022 Urology Office/Clinic Note Chief Complaint New Patient Kidney stones HPI Staff New patient Aparna is a 47 y/o female here for a F/U to [facility] for Ureteral stone. CT done 11/24/2022 showed 5 mm obstructing Left UVJ calculus with moderate hydronephrosis. Pt states she has a personal history of kidney stones but is not sure when her last stone episode was. Pt states that she was seen at [facility] [place]. Dysuria: _denies Incomplete bladder emptying: _yes Hematuria: _denies Frequency: _denies Urgency: _mild Nocturia: _2-4 Stream: _steady Leaking: _denies Post void dripping: _denies Wearing pads/ Depends: _denies Urge incontinence: _denies Stress incontinence: _yes Incontinence without Sensory Awareness: _denies Abdominal pain: _denies Flank pain: _denies Sexual complaints: _ History of Present Illness Tests reviewed: reviewed UA, external ER records, CT scan, labs and UA I have reviewed the previous health record information and history for this patient from ELTON Pena and ER physician I have reviewed and verified the staff HPI to be accurate for this encounter. There have been no associated fever, chills, flank pain, or blood in the urine. Denies any urinary infections since last encounter. Review of Systems PHQ Score Initial Depression Screen Score: 0 ROS - Provider Constitutional: denies weight loss, denies hot flashes. Eyes: denies eye problems. Gastrointestinal: denies nausea, denies vomiting. Cardiovascular: denies chest pain or angina. Integumentary: no dryness, scattered rashes Musculoskeletal: denies musculoskeletal symptoms. ENMT: denies otolaryngeal symptoms. Respiratory: no shortness of breath. Heme/Lymph: denies easy bleeding tendency, denies easy bruising tendency. Psychiatric: no confusion, no anxiety. Genitourinary: See HPI. Physical Exam Vitals & Measurements HR: 69(Peripheral) BP: 157/91 HT: 63 in HT: 160 cm WT: 102 kg WT: 224.4 lb BMI: 39.84 General Appearance: alert , no acute distress, well nourished, well developed female. Head: normocephalic . Eyes: normal orbit and globe. ENMT: normal examination of external ears. Chest: symmetric chest rise, respirations non labored . Cardiovascular: regular rate and rhythm. Abdomen: soft, non distended, no tenderness. Genitourinary: bladder nonpalpable, no flank tenderness. Lymph Nodes: unremarkable palpation of the cervical area. Skin: warm, dry, no bruising. scattered lesions and mild neck/upper chest rash Psychiatric: cooperative, affect appropriate for age, normal judgement, euthymic mood. Assessment/Plan 1. Ureteral stone with hydronephrosis (N13.2: Hydronephrosis with renal and ureteral calculous obstruction) Aparna (previously Aparna Sánchez) is an established 47 y/o female here for a F/U to [facility] for Ureteral stone. Previously seen by ELTON Pena for JENNIFER and nocturia. CT AP with con done 11/24/22 showed 5 mm obstructing Left UVJ calculus with moderate hydronephrosis. Pt states she has a personal history of kidney stones but is not sure when her last stone episode was. Pt states that she was seen at [facility] [place] s/p laser lithotripsy No sample provided for UA today. Pt's 2nd stone event. Unsure if stone has passed. Still having pain in abdomen. Nauseous last night. Nocturia has improved, current feeling of incomplete emptying, urgency likely stone related. Discussed management options including medical expulsive therapy x 4-6 week vs intervention including extracorporeal shockwave lithotripsy vs ureteroscopy with laser lithotripsy/stone basket extraction possible stent. Risks/benefits of each were discussed including but not limited to: MET- renal damage, pain or infection; ESWL- bleeding, hematoma, pain, infection, inability to break up the stone, ureteral obstruction, cardiac arrhythmias, damage to surrounding structures and need for additional procedures; ureteroscopy - bleeding, pain, infection, damage to surrounding structures, ureteral perforation, stricture, inability to treat the stone and need for additional procedures. If a stent is placed, pt understands this is not permanent and needs to be removed or exchanged within 3 months to prevent encrustation, infection, permanent renal damage and need for more invasive procedures. -Will schedule cystoscopy, left RPG, ureteroscopy and Laser Lithotripsy/stone extraction, possible stent. The procedural risks, benefits, details, and treatment alternatives have been discussed with the patient. These include bleeding, infection, inability to break or retrieve all of the stone, injury to the ureter (the tube which connects the kidney to the bladder), injury to the kidney scarring of the ureter, and need for repeat procedures, among others including anesthesia and positioning risks. Full informed consent has been obtained. Will order General anesthesia. -Allergic to Keflex, rash, given at the ER. D/c Keflex, no UTI per records -call if pt becomes febrile or if she passes and catches stone, will cancel (more content not included)... [facility] Comment on above: Result Comment: Elec tronically Signed By: Larissa Cordova MD\.br\Date and Time Signed: 11/28/22 10:22 EST\.br\Electronically Co-Signed By: Vikki Lopez\.br\Date and Time Co-Signed: 11/28/22 09:53 EST\.br\Electronically Co-Signed By: Vikki Lopez\.br\Date and Time Co-Signed: 11/28/22 09:54 EST XR KUB 1 VIEWon 11-27-2022 XR KUB 1 VIEW EXAMINATION: XR KUB 1 VIEW HISTORY: Kidney stone COMPARISON: No relevant comparison available. FINDINGS: KIDNEY/URETER - RIGHT: No visible renal or ureteral calcifications. KIDNEY/URETER - LEFT: No visible renal or ureteral calcifications. PELVIS: No appreciable ureteral stones. Small calcification within lower left pelvis favors a phlebolith. BOWEL: No abnormal dilation or deviation. BONES: No acute abnormality. OTHER: Negative. No abnormal gaseous collections. IMPRESSION: 1. No appreciable urinary tract calculi. Electronically authenticated by: BENNETT POWERS Date: 2022-11-27 15:00 Normal [facility] Automated erythrocytes count in urine sediment (number/area)Ordered By: Leonard Torres on 11-24-2022 RBC Auto (Urine sed) [#/Area] 10-19 [HPF] 0-4 [facility] Automated leukocytes count i n urine sediment (number/area)Ordered By: Leonard Torres on 11-24-2022 WBC Auto (Urine sed) [#/Area] 3-4 [HPF] 0-4 [facility] Basophils Auto (Bld) [#/Vol] Ordered By: Leonard Torres on 11-24-2022 Basophils (Bld) [#/Vol] 0.0 10*3/uL 0.0-0.2 [facility] Basophils/100 WBC Auto (Bld) Ordered By: Leonard Torres on 11-24-2022 Basophils/100 WBC (Bld) 0.4 % . F [facility] Bilirubin Test strip Ql (U)O rdered By: Leonard Torres on 11-24-2022 Bilirubin Ql (U) Negative Negative [facility] Body fluid albumin measureme nt (mass/volume)Ordered By: Leonard Torres on 11-24-2022 Albumin (Body fld) [Mass/Vol] 3.5 g/dL 3.2-5.5 [facility] Color Auto (U)Ordered By: Nida Torres on 11-24-2022 Color (U) Yellow Yellow [facility] Creatinine and Glomerular fi ltration rate.predicted panel (S/P/Bld)Ordered By: Leonard Torres on 11-24-2022 Creatinine [Mass/Vol] 1.09 mg/dL 0.44-1.03 [facility] Direct bilirubin measurement Ordered By: Leonard Torres on 11-24-2022 Bilirubin.direct [Mass/Vol] 0.2 mg/dL 0.0-0.4 [facility] Eosinophils Auto (Bld) [#/Vo l]Ordered By: Leonard Torres on 11-24-2022 Eosinophils (Bld) [#/Vol] 0.1 10*3/uL 0.0-0.45 [facility] Eosinophils/100 WBC Auto (Bl d)Ordered By: Leonard Torres on 11-24-2022 Eosinophils/100 WBC (Bld) 1.1 % . [facility] Erythrocyte distribution wid th Auto (RBC) [Ratio]Ordered By: Leonard Torres on 11-24-2022 Erythrocyte distribution width (RBC) [Ratio] 12.2 % 11.9-15.3 [facility] Estimated glomerular filtrat ion rate (GFR) non- AmericanOrdered By: Leonard Torres on 11-24-2022 GFR/1.73 sq M.predicted among non-blacks MDRD (S/P/Bld) [Vol rate/Area] 54 mL/Min [facility] Globulin Calc (S) [Mass/Vol] Ordered By: Leonard Torres on 11-24-2022 Globulin (S) [Mass/Vol] 3.1 g/dL F [facility] HCG ( test) IA.rapi d Ql (U)Ordered By: Leonard Torres on 11-24-2022 HCG ( test) Ql (U) Negative [facility] Hematocrit Auto (Bld) [Volum e fraction]Ordered By: Leonard Torres on 11-24-2022 Hematocrit (Bld) [Volume fraction] 42.5 % 34.0-46.4 [facility] Hemoglobin [Mass/volume] in BloodOrdered By: Leonard Torres on 11-24-2022 Hemoglobin (Bld) [Mass/Vol] 14.6 g/dL 11.8-15.4 [facility] Ketones Auto test strip (U) [Mass/Vol]Ordered By: Leonard Torres on 11-24-2022 Ketones (U) [Mass/Vol] Negative Negative Fi [facility] Laboratory - Chemistry and C hemistry - challengeOrdered By: Leonard Torres on 11-24-2022 Lipase [Catalytic activity/Vol] 30.0 U/L 22-51 [facility] Laboratory - UrinalysisOrder ed By: Leonard Torres on 11-24-2022 Hyaline casts LM Ql (Urine sed) 0-8 [LPF] 0-8 [facility] Leukocytes [#/volume] correc eugenie for nucleated erythrocytes in Blood by Automated counOrdered By: Leonard Torres on 11-24-2022 WBC corrected for nucl RBC Auto (Bld) [#/Vol] 6.2 10*3/uL 3.8-11.6 [facility] Lymphocytes Auto (Bld) [#/Vo l]Ordered By: Leonard Torres on 11-24-2022 Lymphocytes (Bld) [#/Vol] 1.3 10*3/uL 1.00-4.8 [facility] Lymphocytes/100 WBC Auto (Bl d)Ordered By: Leonard Torres on 11-24-2022 Lymphocytes/100 WBC (Bld) 20.7 % . [facility] MCH Auto (RBC) [Entitic mass ]Ordered By: Leonard Torres on 11-24-2022 MCH (RBC) [Entitic mass] 30.5 pg 24.7-34.3 [facility] MCHC Auto (RBC) [Mass/Vol]Or dered By: Leonard oTrres on 11-24-2022 MCHC (RBC) [Mass/Vol] 34.3 g/dL 32.0-35.0 [facility] MCV Auto (RBC) [Entitic vol] Ordered By: Leonard Torres on 11-24-2022 MCV (RBC) [Entitic vol] 88.7 fL 80-[address] [facility] Monocyte distribution width [Entitic volume] in Blood by AutomatedOrdered By: Leonard Torres on 11-24-2022 Monocyte distribution width Auto (Bld) [Entitic vol] 22.97 % 0.00-20.00 [facility] Comment on above: For adults in ED, MD W > 20.0 may be associated with a higher risk of sepsis during the first 12 hrs of hospital admission Monocytes Auto (Bld) [#/Vol] Ordered By: Leonard Torres on 11-24-2022 Monocytes (Bld) [#/Vol] 0.7 10*3/uL 0.0-0.8 [facility] Monocytes/100 WBC Auto (Bld) Ordered By: Leonard Torres on 11-24-2022 Monocytes/100 WBC (Bld) 10.7 % . F [facility] Neutrophils Auto (Bld) [#/Vo l]Ordered By: Leonard Torres on 11-24-2022 Neutrophils (Bld) [#/Vol] 4.2 10*3/uL 1.8-7.7 [facility] Neutrophils/100 WBC Auto (Bl d)Ordered By: Leonard Torres on 11-24-2022 Neutrophils/100 WBC (Bld) 67.1 % . [facility] Nitrite Test strip Ql (U)Ord ered By: Leonard Torres on 11-24-2022 Nitrite Ql (U) Negative Negative [facility] No Panel InformationOrdered By: Leonard Torres on 11-24-2022 Estimated GFR () > 60 mL/Min [facility] Comment on above: GFR estimated refere nce range: According to KDOQI guidelines, <60 ml/min/1.73m2 is sufficient to diagnose a patient with chronic kidney disease. Pharmacy Creatinine Clearance (Chem 72.46 [facility] Nucleated erythrocytes [Pres ence] in Blood by Automated countOrdered By: Leonard Torres on 11-24-2022 Nucleated RBC Auto Ql (Bld) 0.2 /100{WBC} 0-0.5 [facility] Platelet mean volume Auto (B ld) [Entitic vol]Ordered By: Leonard Torres on 11-24-2022 Platelet mean volume (Bld) [Entitic vol] 7.7 fL 6.3-10.7 [facility] Platelets Auto (Bld) [#/Vol] Ordered By: Leonard Torres on 11-24-2022 Platelets (Bld) [#/Vol] 255 10*3/uL 150-450 [facility] Protein Auto test strip (U) [Mass/Vol]Ordered By: Leonard Torres on 11-24-2022 Protein (U) [Mass/Vol] Negative Negative Fi [facility] Protein [Mass/volume] in Ser um or PlasmaOrdered By: Leonard Torres on 11-24-2022 Protein [Mass/Vol] 6.6 g/dL 6.1-7.[address] [facility] RBC Auto (Bld) [#/Vol]Ordere d By: Leonard Torres on 11-24-2022 RBC (Bld) [#/Vol] 4.79 10*6/uL 3.60-5.00 [facility] Serum or plasma alanine martin otransferase measurement without P-5'-P (enzymatic activiOrdered By: Leonard Torres on 11-24-2022 ALT No additional P-5'-P [Catalytic activity/Vol] 20 U/L 10-60 [facility] Serum or plasma albumin/glob ulin mass ratioOrdered By: Leonard Torres on 11-24-2022 Albumin/Globulin [Mass ratio] 1.1 {ratio} [facility] Serum or plasma alkaline anant sphatase measurement (enzymatic activity/volume)Ordered By: Leonard Torres on 11-24-2022 ALP [Catalytic activity/Vol] 59 U/L 32-92 [facility] Serum or plasma anion gap de terminationOrdered By: Leonard Torres on 11-24-2022 Anion gap [Moles/Vol] 10.6 mmol/L 6.0-15.0 [facility] Serum or plasma aspartate am inotransferase measurement (enzymatic activity/volume)Ordered By: Leonard Torres on 11-24-2022 AST [Catalytic activity/Vol] 19 U/L 10-42 [facility] Serum or plasma calcium odalys urement (mass/volume)Ordered By: Leonard Torres on 11-24-2022 Calcium [Mass/Vol] 8.9 mg/dL 8.2-10.[address] [facility] Serum or plasma chloride jl surement (moles/volume)Ordered By: Leonard Torres on 11-24-2022 Chloride [Moles/Vol] 105 mmol/L 95-114 [facility] Serum or plasma glucose odalys urement (mass/volume)Ordered By: Leonard Torres on 11-24-2022 Glucose [Mass/Vol] 127 mg/dL 70-[address] [facility] Comment on above: ADA recommended refe rence rangeRandom Glucose Reference Range is dependent on time and content of last meal. Glucose of more than 200 mg/dL in a nonstressed, ambulatory subject supports the diagnosis of Diabetes Mellitus. Serum or plasma non-glucuron idated bilirubin measurement (mass/volume)Ordered By: Leonard Torres on 11-24-2022 Bilirubin.indirect [Mass/Vol] 0.7 mg/dL [facility] Serum or plasma potassium me asurement (moles/volume)Ordered By: Leonard Torres on 11-24-2022 Potassium [Moles/Vol] 3.1 mmol/L 3.5-5.1 [facility] Serum or plasma sodium measu rement (moles/volume)Ordered By: Leonard Torres on 11-24-2022 Sodium [Moles/Vol] 135 mmol/L 136-[address] [facility] Serum or plasma total biliru bin measurement (mass/volume)Ordered By: Leonard Torres on 11-24-2022 Bilirubin [Mass/Vol] 0.9 mg/dL 0.3-1.2 [facility] Serum or plasma total carbon dioxide measurement (moles/volume)Ordered By: Leonard Torres on 11-24-2022 CO2 [Moles/Vol] 22.5 mmol/L 22.0-30.0 [facility] Serum or plasma urea nitroge n measurement (mass/volume)Ordered By: Leonard Torres on 11-24-2022 Urea nitrogen [Mass/Vol] 10 mg/dL 9-23 [facility] Specific gravity Auto test s trip (U) [Rel density]Ordered By: Leonard Torres on 11-24-2022 Specific gravity (U) [Rel density] 1.015 1.001-1.030 [facility] Squamous epithelial cells de tection in urine sediment by light microscopyOrdered By: Leonard Torres on 11-24-2022 Epithelial cells.squamous LM Ql (Urine sed) 0-1 [HPF] 0-2 [facility] Urine bacteria detection by automated methodOrdered By: Leonard Torres on 11-24-2022 Bacteria Auto Ql (U) None seen None Seen [facility] Urine clarity by refractomet ry automatedOrdered By: Leonard Torres on 11-24-2022 Clarity Refractometry automated (U) Clear Clear [facility] Urine glucose measurement by automated test strip (mass/volume)Ordered By: Leonard Torres on 11-24-2022 Glucose Auto test strip (U) [Mass/Vol] Normal mg/dL Normal [facility] Urine hemoglobin detection b y automated test stripOrdered By: Leonard Torres on 11-24-2022 Hemoglobin Auto test strip Ql (U) 3+ Negative [facility] Urine leukocyte esterase det ection by automated test stripOrdered By: Leonard Torres on 11-24-2022 Leukocyte esterase Auto test strip Ql (U) Negative Negative [facility] Urobilinogen Auto test strip (U) [Mass/Vol]Ordered By: Leonard Torres on 11-24-2022 Urobilinogen (U) [Mass/Vol] Normal mg/dL Normal [facility] WBC Auto (Bld) [#/Vol]Ordere d By: Leonard Torres on 11-24-2022 WBC (Bld) [#/Vol] 6.2 10*3/uL 3.8-11.[address] [facility] pH Auto test strip (U)Ordere d By: Leonard Torres on 11-24-2022 pH (U) 5.5 [pH] 5.0-9.0 [facility] Outside Recordson 10-22-2018 Outside Records [id number] Normal [facility] Vital Signs Date Time Vital Sign Value Performing Clinician Facility 04-21-2025 14:43-0400 Body height 160.02 cm Palomo Marrero NP-C Work Phone: [facility] 04-21-2025 14:43-0400 Body mass index (BMI) [Ratio] 41.1 kg/m2 Palomo Marrero BORDER GUARD-C Work Phone: [facility] 04-21-2025 14:43-0400 Body temperature 96.8 [degF] Palomo Marrero BORDER GUARD-C Work Phone: [facility] 04-21-2025 14:43-0400 Body weight 105.23 kg Palomo Marrero BORDER GUARD-C Work Phone: [facility] 04-21-2025 14:43-0400 Diastolic blood pressure 84 mm[Hg] Palomo Marrero BORDER GUARD-C Work Phone: [facility] 04-21-2025 14:43-0400 Heart rate 60 /min Palomo Marrero BORDER GUARD-C Work Phone: [facility] 04-21-2025 14:43-0400 Inhaled oxygen concentration 21 % Palomo Marrero BORDER GUARD-C Work Phone: [facility] 04-21-2025 14:43-0400 Respiratory rate 16 /min Palomo Marrero BORDER GUARD-C Work Phone: [facility] 04-21-2025 14:43-0400 SaO2% (BldA) [Mass fraction] 97 % Palomo Marrero BORDER GUARD-C Work Phone: [facility] 04-21-2025 14:43-0400 Systolic blood pressure 124 mm[Hg] Palomo Marrero BORDER GUARD-C Work Phone: [facility] 02-01-2025 11:07-0400 Body height 160.02 cm Palomo Marrero BORDER GUARD-C Work Phone: [facility] 02-01-2025 11:07-0400 Body mass index (BMI) [Ratio] 40.8 kg/m2 Palomo Marrero BORDER GUARD-C Work Phone: [facility] 02-01-2025 11:07-0400 Body weight 104.7 kg Palomo Marrero BORDER GUARD-C Work Phone: [facility] 02-01-2025 11:07-0400 Diastolic blood pressure 94 mm[Hg] Palomo Marrero BORDER GUARD-C Work Phone: [facility] 02-01-2025 11:07-0400 Heart rate 76 /min Palomo Marrero BORDER GUARD-C Work Phone: [facility] 02-01-2025 11:07-0400 Respiratory rate 18 /min Palomo Marrero BORDER GUARD-C Work Phone: [facility] 02-01-2025 11:07-0400 SaO2% (BldA) [Mass fraction] 98 % Palomo Marrero BORDER GUARD-C Work Phone: [facility] 02-01-2025 11:07-0400 Systolic blood pressure 150 mm[Hg] Palomo Marrero BORDER GUARD-C Work Phone: [facility] 12-21-2024 16:05-0400 Body mass index (BMI) [Ratio] 40.03 kg/m2 Geeta Gregorio BORDER GUARD Work Phone: [facility] 12-21-2024 16:05-0400 Body temperature 97.9 [degF] Geeta Perkins BORDER GUARD Work Phone: [facility] 12-21-2024 16:05-0400 Body weight 102.51 kg Geeta Gregorio BORDER GUARD Work Phone: [facility] 12-21-2024 16:05-0400 Diastolic blood pressure 88 mm[Hg] Geeta Perkins BORDER GUARD Work Phone: [facility] 12-21-2024 16:05-0400 Heart rate 83 /min Geeta Perkins BORDER GUARD Work Phone: [facility] 12-21-2024 16:05-0400 SaO2% (BldA) [Mass fraction] 97 % Geetayoel Perkins BORDER GUARD Work Phone: [facility] 12-21-2024 16:05-0400 Systolic blood pressure 126 mm[Hg] Geeta Gregorio BORDER GUARD Work Phone: [facility] 12-21-2024 11:08-0400 Body height 160.02 cm Palomoprabhu Marrero BORDER GUARD-C Work Phone: [facility] 12-21-2024 11:08-0400 Body mass index (BMI) [Ratio] 39.3 kg/m2 Palomo Janes BORDER GUARD-C Work Phone: [facility] 12-21-2024 11:08-0400 Body weight 100.7 kg Palomo Janes BORDER GUARD-C Work Phone: [facility] 12-21-2024 11:08-0400 Diastolic blood pressure 77 mm[Hg] Palomo Marrero BORDER GUARD-C Work Phone: [facility] 12-21-2024 11:08-0400 Heart rate 76 /min Palomo Marrero BORDER GUARD-C Work Phone: [facility] 12-21-2024 11:08-0400 Respiratory rate 18 /min Palomo Marrero BORDER GUARD-C Work Phone: [facility] 12-21-2024 11:08-0400 SaO2% (BldA) [Mass fraction] 99 % Palomo Marrero BORDER GUARD-C Work Phone: [facility] 12-21-2024 11:08-0400 Systolic blood pressure 126 mm[Hg] Palomo Marrero BORDER GUARD-C Work Phone: [facility] 11-24-2024 14:39-0500 Diastolic blood pressure 98 mm[Hg] Palomo Marrero BORDER GUARD-C Work Phone: [facility] 11-24-2024 14:39-0500 Heart rate 51 /min Palomo Marrero BORDER GUARD-C Work Phone: [facility] 11-24-2024 14:39-0500 Respiratory rate 16 /min Palomo Marrero BORDER GUARD-C Work Phone: [facility] 11-24-2024 14:39-0500 SaO2% (BldA) [Mass fraction] 100 % Palomo Marrero BORDER GUARD-C Work Phone: [facility] 11-24-2024 14:39-0500 Systolic blood pressure 227 mm[Hg] Palomo Marrero BORDER GUARD-C Work Phone: [facility] 11-24-2024 13:49-0500 Body temperature 98.9 [degF] Palomo Marrero BORDER GUARD-C Work Phone: [facility] 11-24-2024 10:31-0500 Body height 160.02 cm Palomo Marrero BORDER GUARD-C Work Phone: [facility] 11-24-2024 10:31-0500 Body weight 101.7 kg Palomo Marrero BORDER GUARD-C Work Phone: [facility] 11-09-2024 11:44-0500 Body height 160.02 cm [facility] 11-09-2024 11:44-0500 Body mass index (BMI) [Ratio] 39 kg/m2 [facility] 11-09-2024 11:44-0500 Body weight 100.04 kg [facility] 11-09-2024 11:44-0500 Diastolic blood pressure 89 mm[Hg] [facility] 11-09-2024 11:44-0500 Heart rate 84 /min [facility] 11-09-2024 11:44-0500 Respiratory rate 18 /min [facility] 11-09-2024 11:44-0500 SaO2% (BldA) [Mass fraction] 97 % [facility] 11-09-2024 11:44-0500 Systolic blood pressure 128 mm[Hg] [facility] 10-17-2024 09:02-0500 Body mass index (BMI) [Ratio] 38.97 kg/m2 Mansoor Ranjanabarry DO Work Phone: [facility] 10-17-2024 09:02-0500 Body temperature 97.81 [degF] Mansoor Ranjanabarry DO Work Phone: [facility] 10-17-2024 09:02-0500 Body weight 99.79 kg Mansoor Ranjanabarry GANDHI Work Phone: [facility] 10-17-2024 09:02-0500 Diastolic blood pressure 88 mm[Hg] Mansoor Nguyen DO Work Phone: [facility] 10-17-2024 09:02-0500 Heart rate 77 /min Mansoor Nguyen DO Work Phone: [facility] 10-17-2024 09:02-0500 SaO2% (BldA) [Mass fraction] 98 % Mansoor Nguyen DO Work Phone: [facility] 10-17-2024 09:02-0500 Systolic blood pressure 122 mm[Hg] Mansoor Nguyen DO Work Phone: [facility] 10-12-2024 11:31-0500 Body mass index (BMI) [Ratio] 40.2 kg/m2 [facility] 10-12-2024 10:47-0500 Body height 160.02 cm [facility] 10-12-2024 10:47-0500 Body weight 103.5 kg [facility] 09-21-2024 10:54-0500 Body height 160.02 cm [facility] 09-21-2024 10:54-0500 Body mass index (BMI) [Ratio] 39.6 kg/m2 [facility] 09-21-2024 10:54-0500 Body weight 101.4 kg [facility] 09-21-2024 10:54-0500 Diastolic blood pressure 89 mm[Hg] [facility] 09-21-2024 10:54-0500 Heart rate 87 /min [facility] 09-21-2024 10:54-0500 Respiratory rate 18 /min [facility] 09-21-2024 10:54-0500 SaO2% (BldA) [Mass fraction] 99 % [facility] 09-21-2024 10:54-0500 Systolic blood pressure 137 mm[Hg] [facility] 09-17-2024 13:11-0500 Body mass index (BMI) [Ratio] 38.97 kg/m2 Tequila Arriola BORDER GUARD Work Phone: [facility] 09-17-2024 13:11-0500 Body temperature 97.2 [degF] Tequila Arriola BORDER GUARD Work Phone: [facility] 09-17-2024 13:11-0500 Body weight 99.79 kg Tequila Arriola BORDER GUARD Work Phone: [facility] 09-17-2024 13:11-0500 Diastolic blood pressure 72 mm[Hg] Tequila Arriola BORDER GUARD Work Phone: [facility] 09-17-2024 13:11-0500 Heart rate 88 /min Tequila Arriola BORDER GUARD Work Phone: [facility] 09-17-2024 13:11-0500 SaO2% (BldA) [Mass fraction] 98 % Tequila Arriola BORDER GUARD Work Phone: [facility] 09-17-2024 13:11-0500 Systolic blood pressure 130 mm[Hg] Tequila Arriola BORDER GUARD Work Phone: [facility] 09-04-2024 11:36-0500 Body mass index (BMI) [Ratio] 40.2 kg/m2 [facility] 09-04-2024 10:35-0500 Body height 160.02 cm [facility] 09-04-2024 10:35-0500 Body weight 102.1 kg [facility] 08-22-2024 10:10-0500 Body mass index (BMI) [Ratio] 38.97 kg/m2 Rebeca Hemmer PA Work Phone: [facility] 08-22-2024 10:10-0500 Body temperature 97.81 [degF] Rebeca Hemmer PA Work Phone: [facility] 08-22-2024 10:10-0500 Body weight 99.79 kg Rebeca Hemmer PA Work Phone: [facility] 08-22-2024 10:10-0500 Diastolic blood pressure 88 mm[Hg] Rebeca Hemmer PA Work Phone: [facility] 08-22-2024 10:10-0500 Heart rate 80 /min Rebeca Hemmer PA Work Phone: [facility] 08-22-2024 10:10-0500 SaO2% (BldA) [Mass fraction] 99 % Rebeca Hemmer PA Work Phone: [facility] 08-22-2024 10:10-0500 Systolic blood pressure 132 mm[Hg] Rebeca Hemmer PA Work Phone: [facility] 08-10-2024 10:15-0400 Body mass index (BMI) [Ratio] 39.7 kg/m2 BORDER GUARD-C Palomo Marrero Work Phone: [facility] 08-10-2024 10:15-0400 Body weight 101.8 kg BORDER GUARD-C Palomo Marrero Work Phone: [facility] 08-10-2024 10:02 Body height 160.02 cm BORDER GUARD-C Palomo Marrero Work Phone: [facility] 08-10-2024 10:02-0400 Diastolic blood pressure 79 mm[Hg] BORDER GUARD-C Palomo Marrero Work Phone: [facility] 08-10-2024 10:02-040 Heart rate 80 /min BORDER GUARD-C Palomo Marrero Work Phone: [facility] 08-10-2024 10:02040 Respiratory rate 18 /min BORDER GUARD-C Palomo Marrero Work Phone: [facility] 08-10-2024 10:02-0400 SaO2% (BldA) [Mass fraction] 99 % BORDER GUARD-C Palomo Marrero Work Phone: [facility] 08-10-2024 10:02-040 Systolic blood pressure 123 mm[Hg] BORDER GUARD-C Palomo Marrero Work Phone: [facility] 07-24-2024 10: Body height 160 cm Keith Landenkendymateo DO Work Phone: [facility] 07-24-2024 10:040 Body mass index (BMI) [Ratio] 37.73 kg/m2 Keith Biedenbach DO Work Phone: [facility] 07-24-2024 10:040 Body weight 96.62 kg Keith Biedenbach DO Work Phone: [facility] 06-29-2024 10: Body height 160.02 cm [facility] 06-29-2024 10: Body mass index (BMI) [Ratio] 40.2 kg/m2 [facility] 06-29-2024 10: Body weight 103.07 kg [facility] 06-29-2024 10:17-0400 Diastolic blood pressure 80 mm[Hg] [facility] 06-29-2024 10:17-0400 Heart rate 62 /min [facility] 06-29-2024 10:17-0400 Respiratory rate 18 /min [facility] 06-29-2024 10:17-0400 SaO2% (BldA) [Mass fraction] 97 % [facility] 06-29-2024 10:17-0400 Systolic blood pressure 128 mm[Hg] [facility] 01-15-2024 11:13-0400 Body height 160.02 cm [facility] Work Phone: [facility] 01-15-2024 11:13-0400 Body weight 99.79 kg [facility] Work Phone: [facility] 01-02-2024 14:16-0400 Body height 160.02 cm [facility] Work Phone: [facility] 01-02-2024 14:16-0400 Body temperature 97.9 [degF] [facility] Work Phone: [facility] 01-02-2024 14:16-0400 Body weight 103.95 kg [facility] Work Phone: [facility] 01-02-2024 14:16-0400 Diastolic blood pressure 78 mm[Hg] [facility] Work Phone: [facility] 01-02-2024 14:16-0400 Heart rate 71 /min [facility] Work Phone: [facility] 01-02-2024 14:16-0400 Respiratory rate 18 /min [facility] Work Phone: [facility] 01-02-2024 14:16-0400 SaO2% (BldA) [Mass fraction] 99 % [facility] Work Phone: [facility] 01-02-2024 14:16-0400 Systolic blood pressure 130 mm[Hg] [facility] Work Phone: [facility] 12-04-2023 10:50-0500 Diastolic blood pressure 73 mm[Hg] [facility] Work Phone: [facility] 12-04-2023 10:50-0500 Heart rate 60 /min [facility] Work Phone: [facility] 12-04-2023 10:50-0500 Respiratory rate 16 /min [facility] Work Phone: [facility] 12-04-2023 10:50-0500 SaO2% (BldA) [Mass fraction] 99 % [facility] Work Phone: [facility] 12-04-2023 10:50-0500 Systolic blood pressure 124 mm[Hg] [facility] Work Phone: [facility] 12-04-2023 08:47-0500 Body height 160.02 cm [facility] Work Phone: [facility] 12-04-2023 08:47-0500 Body temperature 98.3 [degF] [facility] Work Phone: [facility] 12-04-2023 08:47-0500 Body weight 99.79 kg [facility] Work Phone: [facility] 11-28-2022 09:05-0500 Blood Pressure Location Larissa Lue [facility] 11-28-2022 09:05-0500 Diastolic blood pressure 91 mm[Hg] Larissa Lue [facility] 11-28-2022 09:05-0500 Heart rate 69 /min Larissa Lue [facility] 11-28-2022 09:05-0500 Systolic blood pressure 157 mm[Hg] Larissa Cordova [facility] 11-24-2022 06:00-0500 Diastolic blood pressure 81 mm[Hg] [facility] Work Phone: [facility] 11-24-2022 06:00-0500 Heart rate 90 /min [facility] Work Phone: [facility] 11-24-2022 06:00-0500 Respiratory rate 16 /min [facility] Work Phone: [facility] 11-24-2022 06:00-0500 SaO2% (BldA) [Mass fraction] 99 % [facility] Work Phone: [facility] 11-24-2022 06:00-0500 Systolic blood pressure 167 mm[Hg] [facility] Work Phone: [facility] 11-24-2022 02:18-0500 Body temperature 97.1 [degF] [facility] Work Phone: [facility] 11-24-2022 02:16-0500 Body height 160.02 cm [facility] Work Phone: [facility] 11-24-2022 02:16-0500 Body weight 103.2 kg [facility] Work Phone: [facility] 02-05-2022 13:15-0400 Body height 160.02 cm Leonard Dc Other [employer] Other 02-05-2022 13:15-0400 Body mass index (BMI) [Ratio] 37.2 kg/m2 Leonard Dc Other [employer] Other 02-05-2022 [id number] Body weight 95.26 kg Leonard Dc Other [facility] [employer] Other Encounters Encounter Date Encounter Type Care Provider Facility Start: 05-20-2025 ambulatory Palomo danielle BORDER GUARD-C [facility] Start: 04-21-2025 End: 04-21-2025 Office outpatient visit 15 minutes Palomo Marrero BORDER GUARD-C Work Phone: [facility] Start: 04-14-2025 End: 04-14-2025 Encounter identifier Palomo Janes BORDER GUARD-C Work Phone: [facility] Start: 04-13-2025 End: 04-13-2025 Encounter identifier Roxy Olivas [facility] Work Phone: [facility] Start: 03-15-2025 End: 03-15-2025 Patient encounter procedure Palomo Marrero BORDER GUARD-C Work Phone: [facility] Work Phone: Start: 03-15-2025 End: 03-15-2025 ambulatory Palomo Marrero BORDER GUARD-C Work Phone: [facility] Work Phone: Start: 03-01-2025 End: 03-01-2025 ambulatory Palomo Marrero BORDER GUARD-C Work Phone: [facility] Work Phone: Start: 03-01-2025 End: 03-01-2025 Discharged Recurring Palomo Marrero BORDER GUARD-C Work Phone: [facility] Start: 02-22-2025 Registered Recurring Palomo savage BORDER GUARD-C Work Phone: [facility] Start: 02-22-2025 End: 02-22-2025 Patient encounter procedure Palomo Marrero BORDER GUARD-C Work Phone: [facility] Work Phone: Start: 02-22-2025 End: 02-22-2025 ambulatory Palomo Marrero BORDER GUARD-C Work Phone: [facility] Work Phone: Start: 02-16-2025 End: 02-16-2025 Lab Drop off Patterson Talal Sarmini [facility] Start: 02-16-2025 End: 02-16-2025 ambulatory Patterson Talal Sarmini Facility[place] Start: 02-16-2025 End: 02-16-2025 ambulatory Patterson Talal Sarmini Facility:[id number] Start: 02-01-2025 End: 02-01-2025 ambulatory Palomo Mrarero BORDER GUARD-C Work Phone: [facility] Work Phone: Start: 02-01-2025 End: 02-01-2025 Patient encounter procedure Palomo Marrero NP-C Work Phone: [facility] Work Phone: Start: 01-25-2025 End: 01-25-2025 ambulatory Patterson Talal Sarmini Facility:[facility] Start: 12-30-2024 ambulatory Patterson Sarmini Facili ty:[facility] Start: 12-21-2024 End: 12-21-2024 Office outpatient visit 25 minutes Geeta Perkins BORDER GUARD Work Phone: [facility] Comment on above: Strain of lumbar reg ion, initial encounter (Primary Dx); Lumbar pain; Spasm of left trapezius muscle; Strain of left shoulder, initial encounter; Acute pain of left shoulder; Strain of left hip, initial encounter; Left hip pain Start: 12-21-2024 End: 12-21-2024 ambulatory GEETA PERKINS Not Available Start: 12-21-2024 End: 12-21-2024 ambulatory Palomo Marrero BORDER GUARD-C Work Phone: [facility] Work Phone: Start: 12-21-2024 End: 12-21-2024 Patient encounter procedure Palomo Marrero BORDER GUARD-C Work Phone: [facility] Work Phone: Start: 11-24-2024 End: 11-24-2024 Emergency department patient visit Palomo Marrero BORDER GUARD-C Work Phone: [facility] Work Phone: Start: 11-09-2024 End: 11-09-2024 ambulatory [facility] Work Phone: Start: 11-09-2024 End: 11-09-2024 Patient encounter procedure [facility] Work Phone: Start: 10-17-2024 End: 10-17-2024 Office outpatient visit 25 minutes Mansoor Nguyen DO Work Phone: [facility] Comment on above: Pharyngitis, unspeci fied etiology (Primary Dx); Acute non-recurrent maxillary sinusitis Start: 10-17-2024 End: 10-17-2024 ambulatory MANSOOR NGUYEN Not Available Start: 10-12-2024 End: 10-12-2024 Patient encounter procedure [facility] Work Phone: Start: 09-23-2024 End: 09-23-2024 Patient encounter procedure [facility] Work Phone: Start: 09-21-2024 End: 09-21-2024 Patient encounter procedure [facility] Work Phone: Start: 09-17-2024 End: 09-18-2024 Telephone encounter Tequila Arriola BORDER GUARD Work Phone: [facility] Start: 09-17-2024 End: 09-17-2024 Office outpatient visit 25 minutes Tequila Arriola BORDER GUARD Work Phone: [facility] Comment on above: Acute cough (Primary Dx); Chest congestion; Bronchitis Start: 09-17-2024 End: 09-17-2024 ambulatory TEQUILA ARRIOLA Not Available Start: 09-04-2024 End: 09-04-2024 Patient encounter procedure [facility] Work Phone: Start: 08-22-2024 End: 08-22-2024 ambulatory REBECA GOMEZ Not Available Start: 08-22-2024 End: 08-22-2024 Office outpatient visit 15 minutes Rebeca Gomez PA Work Phone: [facility] Comment on above: Acute bronchitis, un specified organism (Primary Dx) Start: 08-20-2024 End: 08-20-2024 Patient encounter procedure [facility] Comment on above: Asymmetrical sensori neural hearing loss (Primary Dx) Start: 08-20-2024 End: 08-20-2024 ambulatory GEETA PERKINS Not Available Start: 08-10-2024 End: 08-10-2024 ambulatory BORDER GUARD-C Palomo Marrero Work Phone: [facility] Work Phone: Start: 08-10-2024 End: 08-10-2024 Patient encounter procedure BORDER GUARD-C Palomo Marrero Work Phone: [facility] Work Phone: Start: 08-07-2024 End: 08-07-2024 Patient encounter procedure BORDER GUARD-C Palomo Marrero Work Phone: [facility] Start: 08-07-2024 End: 08-07-2024 ambulatory Kaylene Arredondo Facility:[facility] Start: 07-31-2024 End: 07-31-2024 Bamboo flowsheet Monica Muro [facility] Work Phone: [facility] Start: 07-31-2024 End: 07-31-2024 Bamboo flowsheet Monica Winnie Jazmin CCC-A Work Phone: [facility] Start: 07-31-2024 End: 07-31-2024 Clinical Support Monica Muro CCC-A Work Phone: [facility] Comment on above: Asymmetrical sensori neural hearing loss (Primary Dx) Start: 07-29-2024 End: 07-29-2024 ambulatory [facility] Work Phone: Start: 07-29-2024 End: 07-29-2024 Patient encounter procedure [facility] Work Phone: Start: 07-24-2024 End: 07-24-2024 Bamboo flowsheet Keith Moore DO Work Phone: [facility] [place] Start: 07-24-2024 End: 07-24-2024 Bamboo flowsheet Keith Moore DO Work Phone: [facility] [place] Start: 07-24-2024 End: 07-24-2024 Office outpatient visit 15 minutes Keith Moore DO Work Phone: [facility] [place] Comment on above: Asymmetrical hearing loss (Primary Dx); Allergic rhinitis, unspecified seasonality, unspecified trigger; Dysfunction of both eustachian tubes Start: 07-24-2024 End: 07-24-2024 ambulatory KEITH MOORE Not Available Start: 07-21-2024 End: 07-21-2024 Bamboo flowsheet Monica Winnie Jazmin CCC-A Work Phone: [facility] Start: 07-21-2024 End: 07-21-2024 Bamboo flowsheet Monica Winnie Jazmin CCC-A Work Phone: [facility] Start: 07-21-2024 End: 07-21-2024 Clinical Support Monica Muro CCC-A Work Phone: [facility] Comment on above: Asymmetrical sensori neural hearing loss (Primary Dx) Start: 06-29-2024 End: 06-29-2024 ambulatory [facility] Work Phone: Start: 06-29-2024 End: 06-29-2024 Patient encounter procedure [facility] Work Phone: Start: 01-23-2024 End: 01-23-2024 ambulatory KEITH MOORE Not Available Start: 01-23-2024 End: 01-23-2024 ambulatory KEITH S VISHALENSOM Not Available Start: 01-15-2024 End: 01-15-2024 ambulatory [facility] Work Phone: [facility] Work Phone: Start: 01-15-2024 End: 01-15-2024 Patient encounter [facility] Work Phone: [facility]MRI [facility] [place] Work Phone: Start: 01-02-2024 End: 01-02-2024 Emergency department patient visit [facility] Work Phone: [facility]Emergency Room Work Phone: Start: 12-13-2023 End: 12-13-2023 ambulatory GEETA Geraldo GREGORIO Not Available Start: 12-09-2023 End: 12-09-2023 ambulatory KEITH Karin OSCAR Not Available Start: 12-04-2023 Non-patient / [facility]-visit [facility] Work Phone: [facility] Gastroenterology Work Phone: Start: 12-04-2023 End: 12-04-2023 Admission to same day surgery center [facility] Work Phone: [facility]-Digestive Health Work Phone: Start: 12-04-2023 End: 12-04-2023 ambulatory [facility] Work Phone: [facility] Work Phone: Start: 11-15-2023 Bamboo flowsheet Monica mclain CCC-A Work Phone: [facility] Start: 11-15-2023 Bamboo flowsheet Monica mclain CCC-A Work Phone: [facility] Start: 11-15-2023 End: 11-15-2023 ambulatory MONICA MURO Not Available Start: 11-15-2023 End: 11-15-2023 Clinical Support Monica Muro CCC-A Work Phone: [facility] Comment on above: Asymmetrical sensori neural hearing loss (Primary Dx) Start: 11-05-2023 End: 11-05-2023 ambulatory Imad Asaad Other [employer] Other Start: 11-05-2023 Telephone encounter Imad Leon [facility] Industrial [employer] Start: 02-13-2023 End: 02-13-2023 [facility]ulatory [facility] Work Phone: [facility] Work Phone: Start: 02-13-2023 End: 02-13-2023 Patient encounter procedure [facility] Work Phone: [facility] Work Phone: Start: 02-06-2023 ambulatory Larissa Cordova Facility:Alexey [facility] Start: 12-12-2022 End: 12-12-2022 Patient encounter procedure [facility] Work Phone: [facility]-Ultrasound [facility] [place] Work Phone: Start: 12-11-2022 ambulatory Larissa Cordova Facility:C [id number] Start: 11-28-2022 End: 11-29-2022 ambulatory Larissa Cordova Facility:RICHMOND [facility] Start: 11-28-2022 End: 11-28-2022 Patient encounter procedure Larissa Cordova [facility] Start: 11-27-2022 End: 11-28-[address] DOCTOR HAWTHORNE Facility:[facility] Start: 11-26-2022 ambulatory Larissaeleno Cordova Facility:[facility] [place] Start: 11-24-2022 End: 11-24-2022 Emergency department patient visit Rob [facility] Work Phone: [facility]-Emergency Room Work Phone: Start: 02-05-2022 End: 02-05-2022 ambulatory Leonard Dc Other [employer] Other Start: 02-05-2022 Office outpatient vi sit 15 minutes [facility] Procedures Date Procedure Procedure Detail Performing Clinician Start: 04-21-2025 End: 04-21-2025 Documentation of current medications Palomo Marrero BORDER GUARD-C Work Phone: Start: 03-15-2025 Plain chest X-ray Raghavendra to Janes [employer]ORDER GUARD-C Work Phone: Start: 02-22-2025 End: 02-22-2025 Screening mammography of bilateral breasts Palomo Marrero BORDER GUARD-C Work Phone: Start: 12-21-2024 Radex spine lumbosac ral minimum 4 views Geeta Perkins BORDER GUARD Work Phone: Start: 12-08-2024 End: 12-08-2024 Lipid panel [facility]ivas [facility] Work Phone: Start: 11-24-2024 Plain chest X-ray Raghavendra to Janes BORDER GUARD-C Work Phone: Start: 10-17-2024 Iaadiadoo streptococ cus group a Mansoor Nguyen DO Work Phone: Start: 10-17-2024 STATUS COVID-19/FLU Ant elizabeth Nguyen DO Work Phone: Start: 09-17-2024 PNEUMONIA (HTRX) Jeniffer y N Willam BORDER GUARD Work Phone: Start: 07-21-2024 AUDITORY FUNCTION TESTS Monica Muro [employer]-A Work Phone: Start: 01-15-2024 MRI of head [facility] [employer] [facility] Work Phone: Start: 12-06-2023 End: 12-06-2023 Colonoscopy flx dx w/collj spec when pfrmd Roxy Olivas WHCNP Work Phone: Start: 12-04-2023 Screening colonoscopy E [facility] Work Phone: Start: 12-04-2023 Colonoscopy Pattersonkacey chung Start: 11-15-2023 AUDITORY FUNCTION TESTS Monica Muro [employer] Work Phone: Start: 02-13-2023 Screening [facility] Work Phone: Start: 12-12-2022 Ultrasonography of b ilateral kidneys [facility] Work Phone: Start: 11-24-2022 Computed tomography of abdomen and pelvis with contrast [facility] Work Phone: Start: 06-02-2015 End: 06-02-2015 Mammography Monica Muro [employer] Work Phone: Appendectomy Larissa Cordova Appendectomy Patterson Sarmin i section Larissa Cordova Colonoscopy Larissa Cordova H/O: section Muhamm ad Sarmini History of appendectomy Muha mmad Sarmini Ligation of fallopian tube K wesley Cordova Plan of Treatment Date Care Activity Detail Author Start: 07-27-2025 Aparna Sánchez [facility] Work Phone: Start: 07-23-2025 End: 07-23-2025 Patient encounter procedure 07/23/2025 10:45 AM EDT Office Visit [facility] [address] [place] [phone] Keith Moore DO [address] [place] [address] [facility] Start: 07-21-2025 End: 07-21-2025 Patient encounter procedure 07/21/2025 10:30 AM EDT Office Visit [facility] [address] [place] [phone] Rocio Patten AUD [address] [place] [address] [facility] Start: 04-21-2025 Lifestyle education regarding diet Lifestyle education regarding diet [facility] Start: 04-21-2025 [facility] Work Phone: Start: 04-13-2025 [facility] Work Phone: Start: 08-20-2024 End: 08-20-2024 Patient encounter procedure 08/20/2024 2:30 PM EST Office Visit [facility] [address] [place] [phone] [facility] Start: 07-31-2024 End: 07-31-2024 Clinical Support 07/31/2024 10:00 AM EDT Clinical Support [facility] [address] [place] [phone] Monica Muro, FIDE-A [address] [place] [address] Arrived [facility] Comment on above: Arrived Start: 07-24-2024 End: 07-24-2024 Patient encounter procedure [facility] NICO[facility] Comment on above: Arrived Start: 06-14-2024 Influenza vaccination Influenz a Vaccine (#1) [facility] Start: 12-04-2023 [facility] Start: 11-15-2023 End: 11-15-2023 Clinical Support 11/15/2023 9:45 AM EST Clinical Support [facility] [address] [place] [address] Monica Muro, [facility] [address] [place] [address] Arrived [facility] Comment on above: Arrived Start: 06-14-2023 Influenza vaccination Influenz a Vaccine (#1) [facility] Start: 11-24-2022 [facility] Start: 11-24-2022 Computed tomography of abdomen and pelvis with contrast CT abdomen pelvis w con [facility] Start: 11-24-2022 CT Abdomen and Pelvi s W contrast IV [facility] Start: 06-02-2016 Screening for malign ant neoplasm of breast Mammogram [facility] Start: 2014 Screening for malign ant neoplasm of breast Mammogram [facility] Start: 2004 Screening for malign ant neoplasm of cervix [facility] Start: 1995 Screening for malign ant neoplasm of cervix Pap Smear [facility] Start: 1974 Screening for malign ant neoplasm of colon [facility] Cardiovascular stres s testing [facility] Choriogonadotropin ( test) [Presence] in Urine [facility] Detection of bacteria [facility] Patient Education [facility] Work Phone: Patient referral [facility] Work Phone: Urine microscopy: ep ithelial cells [facility] Urine Microscopy: wh ite cells [facility] White blood cell count [facility] Immunizations Immunization Date Immunization Notes Care Provider Fa cility 12-06-2021 SARS-CoV-2 mRNA (xextxqvfcti-zmzw-abpfx se) vaccine Patterson Sarmini [facility] 06-09-2021 SARS-CoV-2 (COVID-19 ) mRNA BNT-162b2 vax Patterson Sarmini [facility] 05-17-2021 SARS-CoV-2 (COVID-19 ) mRNA BNT-162b2 vax Patterson Sarmini [facility] Payers Date Payer Category Payer Private Health Insurance [facility] MEDICAID [id number] 2023 Medicaid [id number] 2022 Unknown [id number] 2.16.840.1.501268.19 1974 Unknown [id number] 2.16.840.1.466048.3.579.2. 593 1974 Unknown [id number] 2.16.840.1.386461.3.579.2. 727 1974 Unknown [id number] 2.16.840.1.882537.3.579.2. 727 1974 Unknown [id number] 2.16.840.1.702623.3.579.2. 1259 1974 Unknown [id number] 2.16.840.1.865803.3.579.2. 1258 1974 Unknown [id number] 2.16.840.1.364584.3.579.2. 1258 1974 Unknown [id number] 2.16.840.1.547050.3.579.2. 1258 1974 Unknown [id number] 2.16.840.1.251714.3.579.2. 1258 1974 Unknown [id number] 2.16.840.1.334719.3.579.2. 1258 1974 Unknown [id number] 2.16.840.1.812969.3.579.2. 1258 1974 Unknown [id number] 2.16.840.1.223376.3.579.2. 1258 1974 Unknown [id number] 2.16.840.1.090848.3.579.2. 1258 1974 Unknown [id number] 2.16.840.1.898363.3.579.2. 1258 1974 Unknown [id number] 2.16.840.1.181404.3.579.2. 1258 1974 Unknown [id number] 2.16.840.1.638108.3.579.2. 1258 1974 Unknown [id number] 2.16.840.1.894603.3.579.2. 1258 1974 Unknown [id number] 2.16.840.1.831053.3.579.2. 1258 1974 Unknown [id number] 2.16.840.1.152259.3.579.2. 1974 Unknown [id number] 2.16.840.1.024123.3.579.2. 72 1974 Unknown [id number] 2.16.840.1.361825.3.579.2. 72 1974 Unknown [id number] 2.16.840.1.768620.3.579.2. 716 1959 Unknown [id number] Medicaid [id number] 2.16.840.1.003122.19 Self-pay Self Pay [id number] Social History Date Type Detail Facility Start: 01-23-2024 End: 12-21-2024 Sex Assigned At [facility] Start: 11-24-2022 End: 11-24-2024 Tobacco smoking status NHIS Never smoked tobacco (finding) [facility] Start: 1974 Sex Assigned At Female F [facility] Tobacco smoking status Never [facility] Start: 04-13-2025 Tobacco smoking status NHIS Tobacco smoking consumption unknown [facility] Start: 1975 Sex Assigned At Not on file [facility] Start: 12-09-2023 Tobacco use and exposure Smokeless tobacco non-user [facility] Start: 01-23-2024 End: 12-21-2024 Alcoholic beverage intake Ex-drinker (finding) [facility] Start: 01-23-2024 End: 12-21-2024 History of Social function [facility] Start: 11-09-2024 End: 03-16-2025 Sex Female (finding) [facility] Sexual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 Medical [id number] History of Present illness Narrative* ELTON Bourne - 08/22/2024 10:00 AM EST Images from the original note were not included. HPI: Historian of HPI: patient Aparna Sánchez is a 48 y.o. female who presents today to the Urgent Care with the following complaints and denials which have been present for 7 day(s) pt stated that she is mainly just worried about the cough that she has had for about a week. Pt denies N/V/D at this time. C/O Denies Symptom Comments [x] [] Runny Nose [] [x] Difficulty Swallowing [] [x] Sore Throat [x] [] Cough Dry Deep cough [] [x] Ear Pain [] [x] Fever [] [x] Chills [] [x] Nasal Congestion [] [x] Myalgia [] [x] Sinus Pain [] [x] Sinus Pressure Additional Comments: pt has taken cold and flu OTC medication without relief Pt would like to see provide before any testing Current Outpatient Medications on File Prior to Visit Medication Sig Dispense Refill benazepril (Lotensin) 10 MG tablet Take 10 mg by mouth Daily hydrOXYzine pamoate (Vistaril) 25 MG capsule Take 25 mg by mouth PARoxetine (Paxil) 20 MG tablet TAKE 1 & 1/2 (ONE & ONE-HALF) TABLETS BY MOUTH ONCE DAILY sucralfate (Carafate) 1 g tablet Twice daily amLODIPine (Norvasc) 5 MG tablet Take by mouth Daily cyclobenzaprine (Flexeril) 10 MG tablet Three times daily (Patient not taking: Reported on 08/22/2024) HYDROcodone-acetaminophen ([place]) 5-325 MG tablet 1 tablet (Patient not taking: Reported on 08/22/2024) No current facility-administered medications on file prior to visit. Allergies Allergen Reactions Fexofenadine Other Reaction(s): hives Keflex [Cephalexin] Latex Meloxicam Nickel Other Reaction(s): Rash, hives Venlafaxine Other Reaction(s): Rash Fexofenadine-Pseudoephed Er Rash Social History Tobacco Use Smoking status: Never Smokeless tobacco: Never Substance Use Topics Alcohol use: Not Currently Drug use: Defer No family history on file. Past Medical History: Diagnosis Date Abnormal weight gain 07/22/2024 Allergic rhinitis due to animal hair and dander 07/22/2024 Allergic rhinitis due to pollen 07/22/2024 Anxiety Behavior-irritability 01/23/2024 BMI 40.0-44.9, adult ([facility]) 07/22/2024 Bronchitis 01/23/2024 Calculus of distal left ureter 01/23/2024 Carpal tunnel syndrome on both sides 01/23/2024 Chest pain, muscular 01/23/2024 Chronic low back pain 07/22/2024 Chronic rhinitis 07/22/2024 Cough 01/23/2024 Depression with anxiety 07/22/2024 Eczema 01/23/2024 Encounter for dietary counseling and surveillance 07/22/2024 Equinus deformity of foot 07/22/2024 Exercise counseling 07/22/2024 Fibromyalgia 07/22/2024 Flexural atopic dermatitis 07/22/2024 Generalized anxiety disorder ([facility]) 11/14/2009 Hydronephrosis concurrent with and due to calculi of kidney and ureter 01/23/2024 Hypertension ([facility]) Kidney stone 07/22/2024 Lumbar back sprain 01/23/2024 Malaise and fatigue 11/14/2009 Mixed hyperlipidemia ([facility]) 07/22/2024 Nausea and vomiting 01/23/2024 Nuclear senile cataract 07/22/2024 Obesity, Class III, BMI 40-49.9 (morbid obesity) ([facility]) 07/22/2024 Other acquired deformities of right foot 07/22/2024 Presbyopia 07/22/2024 Primary osteoarthritis of left knee 07/22/2024 Renal colic on left side 01/23/2024 Restless leg syndrome 01/23/2024 Rotator cuff arthropathy of right shoulder 01/23/2024 Seasonal allergic rhinitis 07/22/2024 Strain of lumbar region 01/23/2024 Past Surgical History: Procedure Laterality Date SECTION, CLASSIC x 2 Visit Vitals BP 132/88 (BP Location: Right arm, Patient Position: Sitting, BP Cuff Size: Large adult) Pulse 80 Temp 97.8 F (Temporal) Wt 220 lb SpO2 99% BMI 38.97 kg/m Smoking Status Never BSA 2.11 m ROS: A complete system ROS was performed and negative aside from the pertinent positives noted in the HPI and PE. Physical Exam Constitutional: General: She is not in acute distress. Appearance: Normal appearance. She is well-developed. HENT: Head: Normocephalic and atraumatic. Right Ear: External ear normal. Tympanic membrane is scarred. Left Ear: Decreased hearing (Hearing aid in place) noted. Nose: No congestion. Right Turbinates: Not swollen. Left Turbinates: Not swollen. Comments: Mild erythema of turbinates Mouth/Throat: Mouth: Mucous membranes are moist. Pharynx: Posterior oropharyngeal erythema (Minimal) present. Eyes: General: No scleral icterus. Conjunctiva/sclera: Conjunctivae normal. Cardiovascular: Rate and Rhythm: Normal rate and regular rhythm. Heart sounds: Normal heart sounds. No murmur heard. Pulmonary: Effort: Pulmonary effort is normal. No respiratory distress. Breath sounds: No wheezing, rhonchi or rales. Comments: Mildly harsh to auscultation Lymphadenopathy: Cervical: No cervical adenopathy. Skin: General: Skin is warm and dry. Neurological: General: No focal deficit present. Mental Status: She is alert and oriented to person, place, and time. Psychiatric: Mood and Affect: Mood normal. Behavior: Behavior normal. Assessment/Plan Diagnoses and all orders for this visit: Acute bronchitis, unspecified organism - predniSONE (Deltasone) 10 MG tablet; Take 1 tablet (10 mg) by mouth 3 (three) times a day for 3 days, THEN 1 tablet (10 mg) 2 (two) times a day for 3 days, THEN 1 tablet (10 mg) Daily for 3 days. - azithromycin (Zithromax) 250 MG tablet; Take 2 tablets (500 mg) by mouth Daily for 1 day, THEN 1 tablet (250 mg) Daily for 4 days. - guaiFENesin-codeine (Robitussin-AC) 100-10 MG/5ML syrup; Take 10 mL by mouth every 6 (six) hours if needed for cough for up to 7 days Start the above medications as directed. Advised of potential side effects of the steroid. Patient is to take the steroid with food. Can take the cough syrup prn for cough, cautioned it may cause drowsiness. Increase water intake, get plenty of rest. Can take Tylenol prn for any discomfort or fever. No other anti- inflammatories while on steroid. Cough into elbow. Wash hands often. Advised patientthat cough can linger with bronchitis. Follow up with PCP if no improvement in one week. Rebeca SCHAEFER, MARCOSC documented in this [facility]11-07-2024 History of Present illness Narrative* Jen Craig MA - 08/20/2024 2:30 PM EST Patient was in today for a two week follow up on left hearing aid. She is overall pleased and notices the benefit of the hearing aid. Patient had a few questions which were answered during appointment. Patient prefers to continue on an as needed basis. Cosigned by DAWN Mccormick at 2024 11:48 AM EST documented in this [facility]10-18-2024 History of Present illness Narrative* DAWN Mccormick - 07/31/2024 10:00 AM EDT Hearing Aid Fitting: Pt fit with [employer] & Go 1IX CHARLIE aid coupled to her left ear with a 1M test deck supervisor and ex small vented dome. Pt is able to insert and remove the aid without difficulty. Taught pt how to use her electrotype servicer, how to adjust volume with the rocker switch, and how to change the dome and receiverfilter. Paired pt's aid to her Android phone. Her phone is not compatible for streaming. Downloaded [employer] Artis but was unable to complete pairing to artis. Deleted artis and restarted phone. Downloaded artis again. Pt to return in 2-3 weeks for LYMAN check. [facility] will be billed for hearing aid. documented in this [facility]10-11-2024 History of Present illness Narrative* Keith Moore DO - 07/24/2024 10:15 AM EDT Subjective Patient ID: Aparna Sánchez is a 48 y.o. female who presents for Hearing Loss (6 month bernice / audio done) HPI This patient presents for recheck of asymmetric hearing loss. Does describe recent onset of nasal congestion from allergies. Review of Systems Patient denies any fever or pain. Does describe nasal congestion and some postnasal drainage. Does have a history of allergies. Has not noticed any difficulties with change of hearing. Denies any dizziness. The rest of her review of systems is negative. Objective ENT Physical Exam General Examination: General overview: Normal, age-appropriate, no evidence of distress Head: Normocephalic, atraumatic Eyes: Pupils are equally round and reactive to light and accommodation, extraocular muscles are intact Ears: External ear architecture within normal limits, ear canals are patent, tympanic membranes areintact. Review of her audiogram does reveal bilateral sensorineural hearing loss more severe on theleft. Essentially unchanged from prior evaluation. Tympanograms revealed type C waveform. Nose: External nose unremarkable, nares patent, septum intact, is noted bilaterally. Oral cavity: Mucosa moist, no evidence of ulcer, mass, or lesion Throat: Clear Neck/thyroid: Neck supple, full range of motion, no cervical lymphadenopathy, no evidence of thyromegaly Lymph nodes: No cervical lymphadenopathy Skin: Warm and dry, no evidence of suspicious lesions, no rash Heart: No jugular venous distention, point of maximal impulse normal Lungs: Good air movement, no audible wheezing, no shortness of breath Chest: Normal shape and expansion Abdomen: Normal, soft, nontender, nondistended Musculoskeletal: Cervical spine normal, full range of motion Extremities: No clubbing, cyanosis, or edema Peripheral pulses: 2+ radial, 2+ carotid Neurologic: Alert and oriented, cranial nerves 2-12 are grossly intact Psych: Alert and oriented, normal affect, no evidence of distress Assessment/Plan Diagnoses and all orders for this visit: Asymmetrical hearing loss Comments: Recommend repeat audiogram 1 year Allergic rhinitis, unspecified seasonality, unspecified trigger Comments: Recommend steroid nasal spray and possible antihistamine for treatment of her seasonal allergies. Dysfunction of both eustachian tubes Comments: Patient will call if her symptoms are worsening documented in this encounterMadison Medical [id number] History of Present illness Narrative* Monica Muro, CCC-A - 07/21/2024 1:00 PM EDT History: Pt has history asymmetrical sensorineural hearing loss, worse in the left ear. Last audio was 11-15-2023. Pt is interested in hearing aids. Audio will be repeated today because Medicaid guidelines state audio must be within 6 months of the fitting. Otoscopic Exam: Right Ear: Cerumen impaction Left Ear: Non-occlusive cerumen Procedure: Cerumen removed from each ear canal under direct otoscopy using suction and curette without incident. TM intact post cleaning. Pure Tone Audiometry Right Ear: Mild sensorineural hearing loss from 500 Hz - 1K Hz and above 3K Hz Left Ear: Mild to severe sensorineural hearing loss Speech Audiometry Right SRT = 25 dB and word discrimination score at 55 dBHL = 92% Left SRT = 45 dB and word discrimination score at 75 dBHL (masked) = 100% Tympanometry Right Ear: Type tympanogram Left Ear: Type tympanogram Hearing Aid Discussion: Pt candidate for left hearing aid. She does not meet CERTIFIED LEGAL SECRETARY SPECIALIST requirement of 31 dB in her right ear. Pt wants rechargeable CHARLIE aid in white. She needs 1M test deck supervisor. Aid will be ordered. Pt will be scheduled for HAF. documented in this encounterMadison Medical [id number] History and physical note Author Marc Quintero [facility] December 04, 2023 10:17am Note Date/Time December 04, 2023 10:24am [facility] ENTER [address] [place] [address] Gastroenterology H&P Signed Patient: Aparna Sánchez MR#: [id number] : 1975 Acct:[id number] Age/Sex: 48 / F Adm Date: 4 Loc: Room: Type: [facility] Attending Dr: Marc Quintero MD [facility]~ Date of Service: 12/04/2023 HISTORY & PHYSICAL: Patient's history with special attention to the cardiovascular, pulmonary systems and the current problem was reviewed with the patient immediately prior to the procedure. Present medications and doses reviewed in the EMR. Allergies and pertinent laboratory tests were also reviewedat this time in the EMR. The physical examination, as below, was then performed. Indication, assessment and HPI: 48-year-old female here for screening colonoscopy Family history of GI malignancy? No PHYSICAL EXAMINATION Mouth and Pharynx : Moist mucus membranes, normal dentition Cardiac: Regular rate, regular rhythm Pulmonary: Clear to auscultation bilaterally, no wheezing Neurological: Alert and oriented x3, no focal deficits noted Abdomen: Abdomen soft, non-tender REVIEW OF SYSTEMS Constitutional: Denies malaise, fevers Cardiovascular: Denies chest pain, palpitations Respiratory: Denies shortness of breath, wheezing Gastrointestinal: Per HPI Genitourinary: Denies dysuria, polyuria Musculoskeletal: Denies joint swelling, joint stiffness Neurological: Denies numbness, tingling Integumentary: Denies rashes, skin lesions Endocrine: Denies fatigue, weight loss Written informed consent obtained from the patient. Risks (including but not limited to perforation, infection, bloating, bleeding, need for emergent surgeryand loss of life), benefits and alternatives explained and questions answered. The patient verbalized understanding. Based on history patient is an appropriate candidate for the procedure. Marc Quintero M.D. Documented By: Marc Quintero MD 12/04/23 1016 Signed By: <Electronically signed by Marc Quintero MD> 12/04/23 1017 [facility] Work Phone: 1(920) 654-203602-21-2024 [facility] History of Present illness Narrative* Monica Muro, CCC-A - 11/15/2023 9:45 AM EST History: Pt was referred to ENT because of decreased hearing left ear, onset at least 1 year ago. Pt denies excessive noise exposure, tinnitus, otalgia, and frequent ear infection. Otoscopic Exam: Right Ear: Partially occlusive cerumen Left Ear: Non-occlusive cerumen Pure Tone Audiometry Right Ear: Mild sensorineural hearing loss at 1K Hz. Mild to moderate sensorineura hearing loss above 3K Hz Left Ear: Mild sloping to severe sensorineural hearing loss Speech Audiometry Right SRT = 20 dB and word discrimination score at 55 dBHL = 100% Left SRT = 40 dB and word discrimination score at 75 dBHL (masked) = 96% Tympanometry Right Ear: Type A tympanogram Left Ear: Type A tympanogram Impressions: ENT evaluation is recommended because of asymmetrical sensorineural hearing loss, worse in the leftear. Pt good candidate for left hearing aid documented in this encounterMadison Medical [id number] Hospital Discharge instructions Patient Education 11/28/2022 09:43:54 Dietary Guidelines to Help Prevent Kidney Stones Dietary Guidelines to Help Prevent Kidney Stones Kidney stones are deposits of minerals and salts that form inside your kidneys. Your risk of developing kidney stones may be greater depending on your diet, your lifestyle, the medicines you take, and whether you have certain medical conditions. Most people can reduce their chances of developing kidney stones by following the instructions below. Depending on your overall health and the type of kidney stones you tend to develop, your dietitian may give you more specific instructions. What are tips for following this plan? Reading food labels Choose foods with no salt added or low-salt labels. Limit your sodium intake to less than 1500 mg per day. Choose foods with calcium for each meal and snack. Try to eat about 300 mg of calcium at each meal.Foods that contain 200 500 mg of calcium per serving include: ?8 oz (237 ml) of milk, fortified nondairy milk, and fortified fruit juice. ?8 oz (237 ml) of kefir, yogurt, and soy yogurt. ?4 oz (118 ml) of tofu. ?1 oz of cheese. ?1 cup (300 g) of dried figs. ?1 cup (91 g) of cooked broccoli. ?1 3 oz can of sardines or mackerel. Most people need 1000 to 1500 mg of calcium each day. Talk to your dietitian about how much calciumis recommended for you. Shopping Buy plenty of fresh fruits and vegetables. Most people do not need to avoid fruits and vegetables, even if they contain nutrients that may contribute to kidney stones. When shopping for convenience foods, choose: ?Whole pieces of fruit. ?Premade salads with dressing on the side. ?Low-fat fruit and yogurt smoothies. Avoid buying frozen meals or prepared deli foods. Look for foods with live cultures, such as yogurt and kefir. Cooking Do not add salt to food when cooking. Place a salt shaker on the table and allow each person to addhis or her own salt to taste. Use vegetable protein, such as beans, textured vegetable protein (TVP), or tofu instead of meat in pasta, casseroles, and soups. Meal planning Eat less salt, if told by your dietitian. To do this: ?Avoid eating processed or premade food. ?Avoid eating fast food. Eat less animal protein, including cheese, meat, poultry, or fish, if told by your dietitian. To dothis: ?Limit the number of times you have meat, poultry, fish, or cheese each week. Eat a diet free of meat at least 2 days a week. ?Eat only one serving each day of meat, poultry, fish, or seafood. ?When you prepare animal protein, cut pieces into small portion sizes. For most meat and fish, one serving is about the size of one deck of cards. Eat at least 5 servings of fresh fruits and vegetables each day. To do this: ?Keep fruits and vegetables on hand for snacks. ?Eat 1 piece of fruit or a handful of berries with breakfast. ?Have a salad and fruit at lunch. ?Have two kinds of vegetables at dinner. Limit foods that are high in a substance called oxalate. These include: ?Spinach. ?Rhubarb. ?Beets. ?Potato chips and lao fries. ?Nuts. If you regularly take a diuretic medicine, make sure to eat at least 1 2 fruits or vegetables high in potassium each day. These include: ?Avocado. ?Banana. ?[place]ampas[place], prune, carrot, or tomato juice. ?Baked potato. ?Cabbage. ?Beans and split peas. General instructions Drink enough fluid to keep your urine clear or pale yellow. This is the most important thing you can do. Talk to your health care provider and dietitian about taking daily supplements. Depending on your health and the cause of your kidney stones, you may be advised: ?Not to take supplements with vitamin C. ?To take a calcium supplement. ?To take a daily probiotic supplement. ?To take other supplements such as magnesium, fish oil, or vitamin B6. Take all medicines and supplements as told by your health care provider. Limit alcohol intake to no more than 1 drink a day for non women and 2 drinks a day for men. One drink equals 12 oz of beer, 5 oz of wine, or 1 oz of hard liquor. Lose weight if told by your health care provider. Work with your dietitian to find strategies and an eating plan that works best for you. What foods are not recommended? Limit your intake of the following foods, or as told by your dietitian. Talk to your dietitian about specific foods you should avoid based on the type of kidney stones and your overall health. Grains Breads. Bagels. Rolls. Baked goods. Salted crackers. Cereal. Pasta. Vegetables Spinach. Rhubarb. Beets. Canned vegetables. Pickles. Olives. Meats and other protein foods Nuts. Nut butters. Large portions of meat, poultry, or fish. Salted or cured meats. Deli meats. Hotdogs. Sausages. Dairy Cheese. Beverages Regular soft drinks. Regular vegetable juice. Seasonings and other foods Seasoning blends with salt. Salad dressings. Canned soups. Soy sauce. Ketchup. Barbecue sauce. Canned pasta sauce. Casseroles. Pizza. Lasagna. Frozen meals. Potato chips. Kazakh fries. Summary You can reduce your risk of kidney stones by making changes to your diet. The most important thing you can do is drink enough fluid. You should drink enough fluid to keep your urine clear or pale yellow. Ask your health care provider or dietitian how much protein from animal sources you should eat eachday, and also how much salt and calcium you should have each day. This information is not intended to replace advice given to you by your health care provider. Make sure you discuss any questions you have with your health care provider. Document Released: 01/25/2012 Document Revised: 01/20/2020 Document Reviewed: 09/10/2017 [employer] Patient Education 2020 [employer]. Follow Up Care 11/26/2022 15:17:54 With:Art KINGSTON, THIAGO Peter, URO Address: When: Unknown [facility] 04-25-2022 Evaluation note* Encounter Date Diagnosis Assessment Notes Treatment Notes Treatment Clinical Notes Jan, Primary osteoarthritis of left knee (ICD-10 - M17.12) We performed a 1/1cc marcaine / kenalog cortisone injection into the knee joint under sterile technique. Patient tolerated the injection well without adverse reaction. Jan, Primary osteoarthritis of right knee (ICD-10 - M17.11) Xrays were reviewed with patient in detail. The patient is suffering from degenerative arthritis involving the knee. We discussed the conservative treatment options which can be beneficial in relieving pain, including gentle non-impact motion exercise and non-steroidal anti-inflammatory medication. We discussed the use of occasional cortisone injections that can provide pain relief as well as hyaluronan lubricant injection. We performed a /1cc marcaine / kenalog cortisone injection into the knee joint under sterile technique. Patient tolerated the injection well without adverse reaction. [employer] Other Consult note* Clinical Note Date No Information [facility] Work Phone: Discharge summary* Clinical Note Date No Information [facility] Work Phone: Evaluation + Plan note No data available for this section [facility] evaluation noteNo assessment information available [facility] Work Phone: Evaluation noteNo InformationNortGe[facility] [employer] Other Evaluation note* Diagnosis Asymmetrical sensorineural hearing loss- Primary Sensorineural hearing loss, asymmetrical [facility]* Diagnosis Onset Date Resolution Status Abnormal weight gain acute BMI 40.0-44.9, adult acute Chronic low back pain acute Depression with anxiety acut e Dietary surveillance and counseling acute Exercise counseling acute Fibromyalgia acute Hypertension acute Kidney stone acute Loud snoring acute Mixed hyperlipidemia acute Obesity, Class III, BMI 40-49.9 (morbid obesity) acute Primary osteoarthritis of left knee acute Primary osteoarthritis of right knee acute [facility] Work Phone: Evaluation note* Diagnosis Asymmetrical sensorineural hearing loss- Primary Sensorineural hearing loss, asymmetrical [facility]* Diagnosis Asymmetrical hearing loss- Primary Unspecified hearing loss Allergic rhinitis, unspecified seasonality, unspecified trigger Dysfunction of both eustachian tubes documented [facility]* Diagnosis Asymmetrical sensorineural hearing loss- Primary Sensorineural hearing loss, asymmetrical [facility]* Diagnosis Onset Date Resolution Status Abnormal weight gain acute BMI 40.0-44.9, adult acute Chronic low back pain acute Depression with anxiety acut e Dietary surveillance and counseling acute Exercise counseling acute Fibromyalgia acute Hypertension acute Kidney stone acute Loud snoring acute Mixed hyperlipidemia acute Obesity, Class III, BMI 40-49.9 (morbid obesity) acute Primary osteoarthritis of left knee acute Primary osteoarthritis of right knee acute Abnormal weight gain acute BMI 39.0-39.9,adult acute BMI 40.0-44.9, adult acute Chronic low back pain acute Depression with anxiety acut e Dietary surveillance and counseling acute Exercise counseling acute Fibromyalgia acute Hypertension acute Kidney stone acute Loud snoring acute Mixed hyperlipidemia acute Obesity, Class II, BMI 35-39.9 acute Obesity, Class III, BMI 40-49.9 (morbid obesity) acute Primary osteoarthritis of left knee acute Primary osteoarthritis of right knee acute [facility] Work Phone: Evaluation note* Diagnosis Acute bronchitis, unspecified organism- Primary documented in this encounter [facility]* Diagnosis Asymmetrical sensorineural hearing loss- Primary Sensorineural hearing loss, asymmetrical documented in this encounter [facility]* Diagnosis Acute cough- Primary Chest congestion Other symptoms involving respiratory system and chest Bronchitis Bronchitis, not specified as acute or chronic Acute cough Chest congestion Other symptoms involving respiratory system and chest documented in this encounter [facility] note* Diagnosis Pharyngitis, unspecified etiology- Primary Acute non-recurrent maxillary sinusitis documented in this encounter [facility]* Diagnosis Strain of lumbar region, initial encounter- Primary Lumbar pain Lumbago Spasm of left trapezius muscle Strain of left shoulder, initial encounter Acute pain of left shoulder Strain of left hip, initial encounter Left hip pain Pain in joint, pelvic region and thigh documented in this encounter [facility]Evaluation note* Type Assessment Date No Information [facility] Work Phone: History and physical note* Clinical Note Date No Information [facility] Work Phone: History general Narrative - Reported* Type Description Date Surgical History C section 2 Surgical History appendectomy Surgical History kidney stone Hospitalization History See Above [employer] Other History of Past illness Narrative* Condition Effective Dates (start - stop) O utcome No Information [facility] Work Phone: History of Present illness Narrative* Encounter Date Complaint History Of Prese nt Illness No Information [facility] Work Phone: Hospital Discharge instructions Additional Instructions Follow-up with your primary care doctor Return to ED if develop worsening symptoms or concerns[facility] Work Phone: Hospital Discharge instructions No data available for this section [facility] Instructions* Date Instruction Additional Infor mation No Information [facility] Work Phone: Progress note No data available for this section [facility] progress note* Clinical Note Date No Information [facility] Work Phone: Reason for referral (narrative)* Reason For Referral No Information [facility] Work Phone: Review of systems Narrative - Reported* System Pos/Neg Findings Respiratory Negative Dyspnea. Cardio Negative Chest pain. Constitutional Negative Fatigue. Neuro Negative Transient weakne ss. Reproductive Positive The patient is p re-menopausal. Negative Hematuria. [facility] Work Phone: Summary Purpose Family History No Family History Records Found Relationship Condition Age at Onset Recorded Date/T frederic brother Unknown Malignant neoplasm of lung Unknown natural son Unknown father Malignant neoplasm of lung Unknown grandparent Malignant neoplasm of pancreas Unknown Relationship Condition Age at Onset Recorded Date/T frederic brother Unknown Malignant neoplasm of lung Unknown son Unknown father Malignant neoplasm of lung Unknown grandparent Malignant neoplasm of pancreas Unknown Family Member Type Diagnosis Age At Onset Father Problem (finding) Alive and well Brother Problem malignant neoplasm of pancre as Brother Problem (finding) Alive and well Brother Problem Diabetes mellitus Mother Problem Obesity Mother Problem (finding) coronary arterioscleros is Mother Problem (finding) Alive and well Mother Problem (finding) hypertension Father Problem Mental illness Father Problem alcoholism Mother Problem (finding) Arthritis Advance Directives No Advanced Directives Records Found Advance Directive Response Recorded Date/ Time Advance Directives No March 11 10:30pm Advance Directive Response Recorded Date/ Time Advance Directives No March 11 11:30pm Directive Yes / No Effective Date File Name No Information Chief Complaint and Reason for Visit Chief Complaint d/v stomach pain Chief Complaint d/v stomach pain skylar stone w/ hyronephrosis Screening Chief Complaint Screening Screening Chief Complaint Screening Screening lower back pain Chief Complaint Screening Screening lower back pain H91.8X3 Chief Complaint [facility] Reason for Visit Abnormal weight gain BMI 40.0-44.9, adult Chronic low back pain Depression with anxiety Dietary surveillance and counseling Exercise counseling Fibromyalgia Hypertension Kidney stone Loud snoring Mixed hyperlipidemia Obesity, Class III, BMI 40-49.9 (morbid obesity) Primary osteoarthritis of left knee Primary osteoarthritis of right knee Chief Complaint [facility]S F41.8 R06.83 E78.2 N20.10 I10 Reason for Visit Abnormal weight gain BMI 40.0-44.9, adult Chronic low back pain Depression with anxiety Dietary surveillance and counseling Exercise counseling Fibromyalgia Hypertension Kidney stone Loud snoring Mixed hyperlipidemia Obesity, Class III, BMI 40-49.9 (morbid obesity) Primary osteoarthritis of left knee Primary osteoarthritis of right knee Abnormal weight gain BMI 39.0-39.9,adult BMI 40.0-44.9, adult Chronic low back pain Depression with anxiety Dietary surveillance and counseling Exercise counseling Fibromyalgia Hypertension Kidney stone Loud snoring Mixed hyperlipidemia Obesity, Class II, BMI 35-39.9 Obesity, Class III, BMI 40-49.9 (morbid obesity) Primary osteoarthritis of left knee Primary osteoarthritis of right knee Chief Complaint Admit Date WM RD 1st after class September 04 10:23am Tips for the holidays September 23 1:13pm RD WM f/u October 12, 2024 10:34am Reason for Visit Admit Date Abnormal weight gain September 21, 2024 10:47am BMI 39.0-39.9,adult September 21, 2024 1 0:47am Chronic low back pain September 21, 2024 10:47am Depression with anxiety September 21 10:47am Dietary surveillance and counseling Dece [id number] 10:47am Exercise counseling September 21, 2024 1 0:47am Fibromyalgia September 21, 2024 1 0:47am Hypertension September 21, 2024 1 0:47am Kidney stone September 21, 2024 1 0:47am Loud snoring September 21, 2024 1 0:47am Mixed hyperlipidemia September 21, 2024 10:47am Obesity, Class II, BMI 35-39.9 September 21, 2024 10:47am Primary osteoarthritis of left knee Dece mber 2023 10:47am Primary osteoarthritis of right knee Dec ember 2023 10:47am Abnormal weight gain November 09, 2024 11:25am BMI 39.0-39.9,adult November 09, 2024 1 1:25am Chronic low back pain November 09, 2024 11:25am Depression with anxiety November 09 11:25am Dietary surveillance and counseling Ford che 2024 11:25am Exercise counseling November 09, 2024 1 1:25am Fibromyalgia November 09, 2024 1 1:25am Hypertension November 09, 2024 1 1:25am Kidney stone November 09, 2024 1 1:25am Loud snoring November 09, 2024 1 1:25am Mixed hyperlipidemia November 09, 2024 11:25am Obesity, Class II, BMI 35-39.9 October [id number] 11:25am Primary osteoarthritis of left knee Ford che 2024 11:25am Primary osteoarthritis of right knee Cm paulino 2024 11:25am Chief Complaint Admit Date WM RD 1st after class September 04 10:23am Tips for the holidays September 23 1:13pm RD WM f/u October 12, 2024 10:34am cp November 24, 2024 10:27am Chief Complaint Admit Date RD WM f/u October 12, 2024 10:34am cp November 24, 2024 10:27am Reason for Visit Admit Date Abnormal weight gain November 09, 2024 11:25am BMI 39.0-39.9,adult November 09, 2024 1 1:25am Chronic low back pain November 09, 2024 11:25am Depression with anxiety November 09 11:25am Dietary surveillance and counseling Ford che 2024 11:25am Exercise counseling November 09, 2024 1 1:25am Fibromyalgia November 09, 2024 1 1:25am Hypertension November 09, 2024 1 1:25am Kidney stone November 09, 2024 1 1:25am Loud snoring November 09, 2024 1 1:25am Mixed hyperlipidemia November 09, 2024 11:25am Obesity, Class II, BMI 35-39.9 October [id number] 11:25am Primary osteoarthritis of left knee [facility] che 2024 11:25am Primary osteoarthritis of right knee Cm paulino 2024 11:25am Abnormal weight gain December 21, 2024 11 :05am BMI 39.0-39.9,adult December 21, 2024 11: 05am Chronic low back pain December 21, 2024 1 1:05am Depression with anxiety December 21, 2024 11:05am Dietary surveillance and counseling Conrado 2024 11:05am Exercise counseling December 21, 2024 11: 05am Fibromyalgia December 21, 2024 11: 05am Hypertension December 21, 2024 11: 05am Kidney stone December 21, 2024 11: 05am Loud snoring December 21, 2024 11: 05am Mixed hyperlipidemia December 21, 2024 11 :05am Obesity, Class II, BMI 35-39.9 December 11:05am Primary osteoarthritis of left knee [facility] 2024 11:05am Primary osteoarthritis of right knee [facility] 2024 11:05am Chief Complaint Admit Date cp November 24, 2024 10:27am 6 week February 01, 2025 11: 02am Reason for Visit Admit Date Abnormal weight gain November 09, 2024 11:25am BMI 39.0-39.9,adult November 09, 2024 1 1:25am Chronic low back pain November 09, 2024 11:25am Depression with anxiety November 09 11:25am Dietary surveillance and counseling Ford che 2024 11:25am Exercise counseling November 09, 2024 1 1:25am Fibromyalgia November 09, 2024 1 1:25am Hypertension November 09, 2024 1 1:25am Kidney stone November 09, 2024 1 1:25am Loud snoring November 09, 2024 1 1:25am Mixed hyperlipidemia November 09, 2024 11:25am Obesity, Class II, BMI 35-39.9 October [id number] 11:25am Primary osteoarthritis of left knee [facility] 2024 11:25am Primary osteoarthritis of right knee Cm paulino 2024 11:25am Abnormal weight gain December 21, 2024 11 :05am BMI 39.0-39.9,adult December 21, 2024 11: 05am Chronic low back pain December 21, 2024 1 1:05am Depression with anxiety December 21, 2024 11:05am Dietary surveillance and counseling Conrado h 2024 11:05am Exercise counseling December 21, 2024 11: 05am Fibromyalgia December 21, 2024 11: 05am Hypertension December 21, 2024 11: 05am Kidney stone December 21, 2024 11: 05am Loud snoring December 21, 2024 11: 05am Mixed hyperlipidemia December 21, 2024 11 :05am Obesity, Class II, BMI 35-39.9 December 11:05am Primary osteoarthritis of left knee Conrado h 2024 11:05am Primary osteoarthritis of right knee Mar 2024 11:05am Abnormal weight gain February 01, 2025 11 :02am BMI 40.0-44.9, adult February 01, 2025 11 :02am Chronic low back pain February 01, 2025 1 1:02am Depression with anxiety February 01, 2025 11:02am Dietary surveillance and counseling Apri l 2024 11:02am Exercise counseling February 01, 2025 11: 02am Fibromyalgia February 01, 2025 11: 02am Hypertension February 01, 2025 11: 02am Kidney stone February 01, 2025 11: 02am Loud snoring February 01, 2025 11: 02am Mixed hyperlipidemia February 01, 2025 11 :02am Obesity, Class III, BMI 40-49.9 (morbid obesity) February 01, 2025 11:02am Primary osteoarthritis of left knee Apri l 2024 11:02am Primary osteoarthritis of right knee Apr 2024 11:02am Chief Complaint Admit Date 6 week February 01, 2025 11: 02am Screening February 22, 2025 12:16 pm C acute left-sided low back pain without sciatica February 22, 2025 1:00pm Reason for Visit Admit Date Abnormal weight gain December 21, 2024 11 :05am BMI 39.0-39.9,adult December 21, 2024 11: 05am Chronic low back pain December 21, 2024 1 1:05am Depression with anxiety December 21, 2024 11:05am Dietary surveillance and counseling Conrado h 2024 11:05am Exercise counseling December 21, 2024 11: 05am Fibromyalgia December 21, 2024 11: 05am Hypertension December 21, 2024 11: 05am Kidney stone December 21, 2024 11: 05am Loud snoring December 21, 2024 11: 05am Mixed hyperlipidemia December 21, 2024 11 :05am Obesity, Class II, BMI 35-39.9 December 11:05am Primary osteoarthritis of left knee Conrado h 2024 11:05am Primary osteoarthritis of right knee Mar 2024 11:05am Abnormal weight gain February 01, 2025 11 :02am BMI 40.0-44.9, adult February 01, 2025 11 :02am Chronic low back pain February 01, 2025 1 1:02am Depression with anxiety February 01, 2025 11:02am Dietary surveillance and counseling Apri 2024 11:02am Exercise counseling February 01, 2025 11: 02am Fibromyalgia February 01, 2025 11: 02am Hypertension February 01, 2025 11: 02am Kidney stone February 01, 2025 11: 02am Loud snoring February 01, 2025 11: 02am Mixed hyperlipidemia February 01, 2025 11 :02am Obesity, Class III, BMI 40-49.9 (morbid obesity) February 01, 2025 11:02am Primary osteoarthritis of left knee Apri l 2024 11:02am Primary osteoarthritis of right knee Jan 11:02am Chief Complaint Admit Date 6 week February 01, 2025 11: 02am z12.February 22, 2025 12:16 pm C acute left-sided low back pain without sciatica March 01, 2025 2:00pm Chief Complaint Admit Date 6 week February 01, 2025 11: 02am z12.February 22, 2025 12:16 pm C acute left-sided low back pain without sciatica March 01, 2025 2:00pm [email or web address] March 15, 2025 3:33p m Physical Exam Exam Findings Details Respiratory Normal Inspection - Nor mal. Auscultation - Normal. Effort - Normal. Vascular Normal Capillary refill - Less than 2 seconds. Extremity Normal No edema. Skin Normal Inspection - Nor mal. Neurological Normal Memory - Normal. Psychiatric Normal Orientation - Or iented to time, place, person & situation. Appropriate mood and affect. Normal insight. Normal judgment. Cardiovascular Normal Regular rate and rhythm. No murmurs, gallops, or rubs. Additional Source Comments INFORMATION SOURCE (unrecogn ized section and content) DATE CREATED AUTHOR 07/21/2019 [facility] DATE CREATED AUTHOR AUTHOR'S ORGANIZ ATION 12/02/2022 [facility] DATE CREATED AUTHOR AUTHOR'S ORGANIZ ATION 02/07/2023 Rogers Igor [facility] DATE CREATED AUTHOR AUTHOR'S ORGANIZ ATION 01/24/2024 [facility] EPIC DATE CREATED AUTHOR AUTHOR'S ORGANIZ ATION 12/27/2024 [facility] EPIC DATE CREATED AUTHOR AUTHOR'S ORGANIZ ATION 02/24/2025 Rogers Igor [facility] DATE CREATED AUTHOR AUTHOR'S ORGANIZ ATION [facility] DATE CREATED AUTHOR AUTHOR'S ORGANIZ ATION 04/26/2025 [facility] DATE CREATED AUTHOR AUTHOR'S ORGANIZ ATION 05/07/2025 Rogers Kane [facility] DATE CREATED AUTHOR AUTHOR'S ORGANIZ ATION 05/22/2025 [facility] DEPARTMENT REASON FOR VISIT (unrecogniz ed section and content) Reason Comments Hearing Loss 6 month bernice / audio done Care Teams (unrecognized sec tion and content) Team Status: Inactive Member Role Status Dates [facility] Primary Care Provider Active Leonard Torres Jr, MD Emergency Provider Active Team Status: Active Member Role Status Dates [facility] Primary Care Provider Active Team Status: Inactive Member Role Status Dates [facility] Primary Care Provider Active Larissa Cordova MD Attending Provider Active Team Status: Inactive Member Role Status Dates [facility] Primary Care Provider Active Roxy Olivas ([facility]) , FRONT DESK REPRESENTATIVE Attending Provider Active Team Status: Inactive Member Role Status Dates [facility] Primary Care Provider Active Start: December 04, 2023 End: December 04, 2023 Marc Quintero MD Attending Provider Active Start: December 04, 2023 End: December 04, 2023 Team Status: Active Member Role Status Dates [facility] Primary Care Provider Active Start: December 04, 2023 Marc Quintero MD Attending Provider, Other Provider Active Start: December 04, 2023 Team Status: Inactive Member Role Status Dates [facility] Primary Care Provider Active Start: January 02, 2024 End: January 02, 2024 Larry Fragoso APRN Emergency Provider Active Start: January 02, 2024 End: January 02, 2024 Team Status: Inactive Member Role Status Dates [facility] Primary Care Provider Active Start: January 15, 2024 End: January 15, 2024 Keith Moore DO Attending Provider Active S tart: January 15, 2024 End: January 15, 2024 Team Status: Inactive Member Role Status Dates [facility] Primary Care Provider Active Start: June 29, 2024 End: June 29, 2024 Kaylene Arredondo DNP Attending Provider Active S tart: June 29, 2024 End: June 29, 2024 Controls Operator [employer] Good[employer] Relationship Specialty Start Date End Date Unallocated, Mechelle Edwards MD [address] [place] [address] PCP - General Family Medicine 12/13/23 Palomo Marrero MD [address] [place] [phone] Referring Physician Family Medicine 12/09/23 Controls Operator Molded Goods Relationship Specialty Start Date End Date Unallocated, Mechelle Edwards MD [address] [facility] [place] [address] PCP - General Family Medicine 12/13/23 Palomo Marrero MD [address] [place] [phone] Referring Physician Family Medicine 12/09/23 Controls Operator Molded Goods Relationship Specialty Start Date End Date Unallocated, Mechelle Edwards MD [address] [facility] [place] [id number] PCP - General Family Medicine 12/13/23 Palomo Marrero MD [address] [facility] [place] [address] Referring Physician Family Medicine 12/09/23 Controls Operator Molded Goods Relationship Specialty Start Date End Date Unallocated, MD Elissa Bosch[address] [facility] [place] [address] PCP - General Family Medicine 12/13/23 Palomo Marrero MD [address] [facility] [place] [address] Referring Physician Family Medicine 12/09/23 Team Status: Inactive Member Role [facility] Active Start: July 29, 2024 End: July 29, [address] LD Attending Provider Active Start: July 29, 2024 End: July 29, 2024 Controls Operator [employer] Good[employer] Relationship Specialty Start Date End Date Unallocated, Mechelle Edwards MD Counts include 234 beds at the [facility] [place] [address] PCP - General Family Medicine 12/13/23 Palomo Marrero MD [address] [facility] [place] [phone] Referring Physician Family Medicine 12/09/23 Controls Operator [employer] Good[employer] Relationship Specialty Start Date End Date Unallocated, Mechelle Edwards MD [address] [place] [address] PCP - General Family Medicine 12/13/23 Palomo Marrero MD [address] [place] [address] Referring Physician Family Medicine 12/09/23 Team Status: Active Member Role Status Dates Palomo Marrero NP-C Primary Care Provider Active Team Status: Inactive Member Role Status Dates Palomo Marrero NP-C Primary Care Provider Active Start: August 07, 2024 End: August 07, 2024 Kaylene Arredondo DNP Attending Provider Active S tart: August 07, 2024 End: August 07, 2024 Team Status: Inactive Member Role Status Dates Kaylene Arredondo DNP Attending Provider Active S tart: August 10, 2024 End: August 10, 2024 Palomo Marrero NP-C Primary Care Provider Active Start: August 10, 2024 End: August 10, 2024 Controls Operator [employer] Relationship Specialty Start Date End Date Unallocated, Mechelle Edwards MD [address] [place] [id number] PCP - General Family Medicine 12/13/23 Palomo Marrero MD [address] [place] [phone] Referring Physician Family Medicine 12/09/23 Controls Operator M[employer] Good[employer] Relationship Specialty Start Date End Date Unallocated, Mechelle Edwards MD [facility] [place] [address] PCP - General Family Medicine 12/13/23 Palomo Marrero MD [address] [place] [phone] Referring Physician Family Medicine 12/09/23 Controls Operator M[employer] Goods Relationship Specialty Start Date End Date Unallocated, Mechelle Edwards MD [address] [place], [place] [address] [address] PCP - General Family Medicine 12/13/23 Palomo Marrero MD [address] [place] [address] Referring Physician Family Medicine 12/09/23 Team Status: Inactive Member Role Status Dates TAN Lora Attending Provider Active S tart: September 04, 2024 End: September 04, 2024 Palomo Marrero , BORDER GUARD-C Primary Care Provider Active Start: September 04, 2024 End: September 04, 2024 Team Status: Inactive Member Role Status Dates Palomo Marrero , BORDER GUARD-C Primary Care Provider Active Start: September 21, 2024 End: September 21, 2024 Kaylene Arredondo DNP Attending Provider Active S tart: September 21, 2024 End: September 21, 2024 Team Status: Inactive Member Role Status Dates Palomo Marrero , BORDER GUARD-C Primary Care Provider Active Start: September 23, 2024 End: September 23, 2024 TAN Cordoba Attending Provider Active Start: September 23, 2024 End: September 23, 2024 Team Status: Inactive Member Role Status Dates Palomoprabhu Marrero , BORDER GUARD-C Primary Care Provider Active Start: October 12, 2024 End: October 12, 2024 TAN Lora Attending Provider Active S tart: October 12, 2024 End: October 12, 2024 Team Status: Inactive Member Role Status Dates Palomoprabhu Marrero , BORDER GUARD-C Primary Care Provider Active Start: November 09, 2024 End: November 09, 2024 Kaylene Arredondo DNP Attending Provider Active S tart: November 09, 2024 End: November 09, 2024 Team Status: Inactive Member Role Status Dates Palomoprabhu Marrero , BORDER GUARD-C Primary Care Provider Active Start: November 24, 2024 End: November 24, 2024 Adrien Arredondo DO Emergency Provider Active Sta rt: November 24, 2024 End: November 24, 2024 Team Status: Inactive Member Role Status Dates Palomo Marrero , BORDER GUARD-C Primary Care Provider Active Start: December 21, 2024 End: December 21, 2024 Kaylene Arredondo DNP Attending Provider Active S tart: December 21, 2024 End: December 21, 2024 Controls Operator [employer] Good[employer] Relationship Specialty Start Date End Date Unallocated, Noms Provider, [facility] [place] [address] PCP - General Family Medicine 12/13/23 Palomo Marrero MD [address] [place] [phone] Referring Physician Family Medicine 12/09/23 Team Status: Inactive Member Role Status Dates Palomo Marrero BORDER GUARD-C Primary Care Provider Active Start: February 01, 2025 End: February 01, 2025 Kaylene Arredondo DNP Attending Provider Active S tart: February 01, 2025 End: February 01, 2025 Team Status: Inactive Member Role Status Dates Palomo Marrero NP-C Primary Care Provider Active Start: February 22, 2025 End: February 22, 2025 Roxy Olivas ([facility]) , FRONT DESK REPRESENTATIVE Attending Provider Active Start: February 22, 2025 End: February 22, 2025 Team Status: Active Member Role Status Dates Palomo Marrero NP-C Primary Care Pro vider, Attending Provider Active Start: February 22, 2025 Team Status: Inactive Member Role Status Sergio Marrero NP-C Primary Care Pro vider, Attending Provider Active Start: March 01, 2025 End: March 01, 2025 Team Status: Inactive Member Role Status Dates Palomo Marrero NP-Lesvia Primary Care Pro vider, Attending Provider Active Start: March 15, 2025 End: March 15, 2025 Name Effective Dates (start - stop) Status Members No Information Goals (unrecognized section and content) Goals may be documented in a n alternate section FOR RECORDS PERTAINING TO PATIENTS WHO ARE OR HAVE BEEN ENROLLED IN A CHEMICAL DEPENDENCY/SUBSTANCEABUSE PROGRAM, SOME INFORMATION MAY BE OMITTED. This clinical summary was aggregated from multiple sources. Caution should be exercised in using it in the provision of clinical care. This summary normalizes information from multiple sources, and as a consequence, information in this document may materially change the coding, format and clinical context of patient data. In addition, data may be omitted in some cases. CLINICAL DECISIONS SHOULD BE BASED ON THE PRIMARY CLINICAL RECORDS. [employer] provides no warranty or guarantee of the accuracy or completeness of information in this document.
== END 2025-05-31 08:36 | disposition home or self-care (01) ==
LOC: RAD 08:35
PROVIDERS: Visit Provider Orthopaedic Surgery Orthopaedic Trauma
DX: M25.511 Pain in right shoulder (principal); M25.512 Pain in left shoulder
CPT/HCPCS: 73030